=== PATIENT | female | born 1935 | race Caucasian/White ===

== ENCOUNTER → 2017-10-04 17:00 | Outpatient (CLI) | payer MEDICARE, SELFPAY ==
--- NOTE | 2017-10-04 16:57 | HPBI_ITS ---
MAMMOGRAPHY - BILATERAL SCREENING REASON FOR EXAM: Female, 82 years old. Routine annual screening examination. PERTINENT HISTORY: Non-contributory. TECHNIQUE: Digital bilateral breast osvaldo (3D mammographic acquisition) in the CC and MLO projections. 2-D mediolateral oblique (MLO) and craniocaudad (CC) views of both breasts were obtained. CAD: Full Field Digital Mammography with Computer Added Detection was performed. COMPARISON: Comparison is made with prior study dated February 15, 2012. FINDINGS: Breast Composition: There are scattered areas of fibroglandular density. There are no dominant masses or suspicious calcifications. No other significant abnormalities are identified. There has been no significant change since the prior study. HPBI/SCREENING MAMM (CAD), BILAT IMPRESSION: Stable bilateral screening mammogram. Yearly follow-up mammogram recommended. (A) ASSESSMENT CATEGORY: BIRADS Category 1: Negative. A letter regarding these results will be sent to the patient by the facility within 30 days. Approximately 10% of breast cancers are not detected by mammography. A normal mammogram should not delay biopsy of a clinically suspicious abnormality. [id number] Electronically Signed: Ronald Gonzalez MD at 13:55 EST Tel [phone], Service support ,
== END ==
PROVIDERS: Family Provider Family Medicine; PCP Family Medicine; Visit Provider Family Medicine
DX: Z12.31 Encounter for screening mammogram for malignant neoplasm of breast (principal)
CPT/HCPCS: 77063; 77067

== ENCOUNTER → 2021-07-06 15:08 | Outpatient (CLI) | payer MEDICARE, SELFPAY ==
[2021-07-06 17:47] LABS: Absolute Lymphocyte Count 1.89 X10^3/uL (0.83-4.51); Absolute Neutrophil Count 3.6 X10^3/uL (2.0-7.7); Basophil# 0.04 X10^3/uL; Basophil% 0.7 % (0-1); Eosinophil# 0.02 X10^3/uL; Eosinophils% 0.3 % (0-5); Hematocrit 40.6 % (37-47); Hemoglobin 13.1 g/dL (12.0-15.0); Lymphocyte # 1.89 X10^3/ul (0.83-4.51); Lymphocyte % 31.2 % (19-41); Mean Corp Hgb Conc 32.3 g/dL (32-36); Mean Corpuscular Hgb 31.7 pg (27.0-32.0); Mean Corpuscular Volume 98.3 fL (81-99); Mean Platelet Vol. 13.2 fl (6.2-12.0); Monocyte# 0.49 X10^3/uL; Monocyte% 8.1 % (0-10); NRBC Flagged by Analyzer 0 % (0-5); Neutrophil # 3.59 X10^3/uL (2.7-7.7); Neutrophil % 59.4 % (47-70); Platelet Count 241 K/mm3 (150-450); RBC Distribution Width CV 13.7 % (11.6-14.6); RBC Distribution Width SD 49.6 fl (35.1-43.9); Red Blood Count 4.13 M/mm3 (4.2-5.4); White Blood Count 6.1 K/mm3 (4.4-11.0)
[2021-07-06 18:49] LABS: Syphilis Antibodies Non-reactive; Vitamin B12 334 pg/mL (211-911); Vitamin D,25 Hydroxy 20.9 ng/mL
[2021-07-06 19:17] LABS: ALB/GLOB Ratio 0.9 RATIO (0.9-2.4); AST(SGOT) 24 U/L (15-37); Alanine Aminotransfer ALT/SGPT 22 U/L (13-56); Albumin, Serum 3.7 g/dL (3.2-5.0); Alkaline Phosphatase 54 U/L (45-117); Anion Gap 6 (5-15); BUN 19 mg/dL (7-18); BUN/Creat Ratio 36.1 RATIO (10-20); Calcium,Total 9.6 mg/dL (8.5-10.1); Chloride 107 mmol/L (98-107); Creatinine, Serum 0.53 mg/dL (0.55-1.02); EST Glomerular Filtration Rate 117 mL/min (>60); Est Glom Filt Rate - Afr Amer 142 mL/min (>60); Globulin 3.9 g/dL (2.2-4.2); Glucose 85 mg/dL (74-106); Potassium 3.8 mmol/L (3.5-5.1); Protein, Total 7.6 g/dL (6.4-8.2); Sodium Level 142 mmol/L (136-145); Thyroid Stim Hormone (TSH) 1.34 uIU/mL (0.358-3.74)
== END ==
PROVIDERS: PCP Family Medicine Geriatric Medicine; Visit Provider Family Medicine Geriatric Medicine
DX: E55.9 Vitamin D deficiency, unspecified (principal); F06.8 Other specified mental disorders due to known physiological condition; R53.83 Other fatigue; N39.0 Urinary tract infection, site not specified
CPT/HCPCS: 36415; 80053; 82306; 82607; 82746; 84443; 85025; 86780; 87086; 87088

== ENCOUNTER 2021-11-02 14:30 | Emergency (ER) | payer MEDICARE, SELFPAY ==
[2021-11-02 14:31] VITALS: BP 117/54; PULSE 69; RESP 18; TEMP 36.6; O2SAT 96; BMI 22.0
--- NOTE | 2021-11-02 16:05 | EDS_ITS ---
HPI History of Present Illness Chief Complaint: Lower Extremity Injury Informant: patient Onset/Context/Timing Context: - (Awoke overnight last night with pain) Timing: Continuous Quality of Pain: - (pain) Current Severity: Mild Maximum Severity: Severe Worsened by: LLE thigh flexion / lifting leg Relieved by: remaining still Associated Symptoms Associated Symptoms: Negative for Parasthesia and Weakness Narrative Narrative: Patient has unexplained left proximal thigh pain that hurts to lift her left lower extremity to the point where she is almost unable to get into and out of bed on her own. She is elderly and lives with her grandson for the last several years at his home, he and others help to take care of her. 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 However, she denies any claudication. She states when she is up and standing she can walk without any pain or difficulty. However, lifting her leg up to get into bed is terrible and she is basically unable to lift her leg due to the pain. She does not have weakness or numbness. She has no radiation of the pain into her buttock, abd omen, or distally. She has no pain anywhere around the knee. She had a total hip remotely. She denies any fevers or systemic symptoms. She cannot recall any injury or repetitive movements that could be related to this. She denies any falls recently. [facility] Medical History (Updated 11/02/21 @ 17:[address] Darrion Tomas MD) PAD (peripheral artery disease) Home Medications hydrocodone-acetaminophen 1 tab PO Q4H PRN PRN 2 Days #10 tablet 11/02/21 [Rx Last Taken Unknown] Allergy/AdvReac Type Severity Reaction Status Date / Time morphine AdvReac Nausea/Vom/ Verified 11/02/21 14:34 Diarrhea Surgical History Hx of bilateral hip replacements Social History Smoking Status: Never smoker ROS ROS ED Constitutional Constitutional ED: Denies chills or fever(s) Eyes Eyes: Denies change in vision or diplopia ENT ENT ED: Denies rhinorrhea or sore throat Cardiovascular Cardiovascular: Denies chest pain, claudication or palpitations Respiratory/Chest Respiratory/Chest: Denies cough or dyspnea Gastrointestinal Gastrointestinal: Denies abdominal pain, diarrhea, nausea or vomiting Genitourinary Genitourinary ED: Denies dysuria or hematuria Musculoskeletal Musculoskeletal: Reports extremity pain; Denies neck pain Integumentary Denies Abrasions, rash or wounds Neurologic Neurologic: Denies paresthesias or weakness Psychiatric Psychiatric: Denies anxiety or suicidal thoughts EXAM Physical Exam Const Vital Signs: 11/02/21 14:31 Temperature 97.9 F Temperature Source Temporal Pulse Rate 69 Respiratory Rate 18 Blood Pressure 117/54 L Blood Pressure Mean 75 Pulse Ox 96 Oxygen Delivery Method Room Air Positive well nourished and well developed General Appearance ED: well developed and NAD HEENT Reports moist mucous membranes normocephalic and atraumatic Eyes PERRL and EOMs intact bilaterally Neck full ROM and supple Resp normal respiratory effort and clear to auscultation bilaterally Cardio regular rate, regular rhythm and no murmurs GI non-tender and non-distended Auscultation: normoactive bowel sounds Palpation: soft Back/Spine normal ROM and normal to inspection General Back: other FROM Extremity normal to inspection Extremity Narrative: Excellent distal dorsalis pedis pulses symmetric 2+/4 bilaterally. Passive full range of motion of hips, knees, ankles without any difficulty. However actively flexing at the thigh gives her pain limiting her ability to lift her leg although she is able to resist gravity temporarily. She has no reproducible tenderness in the thigh or hip area when leg is at rest with one exception, where she is very tender right at the common origin tendon of the quadriceps muscles. No bony pelvis prominence tenderness. No inguinal lymphadenopathy. No overlying rash. General Extremety ED: Yes tenderness; Negative for edema or pulses abnormal General Extremity: Negative for edema or pulses abnormal Neuro oriented x3, no focal motor deficits and no sensory deficits noted Sensorium / Orientation: alert Motor Exam: strength 5/5 throughout Psych mental status grossly normal and thought process normal Skin no wounds Rashes: no rashes MDM MDM MDM Narrative Medical decision making narrative: Obtain some screening basic labs and hip/pelvis x-ray, 3 view x-ray of the left hip and pelvis are unremarkable on my interpretation, radiology in agreement showing her pre-existing hip replacements. The patient's etiology of her pain appears to be the origin of her hip flexor on the left. It is certainly possible she has iliopsoas bursitis as well which is in the differential. At this time, I reassured her this is not claudication or vascular problem, she has excellent distal pulses and the symptoms are not consistent with claudication, but unfortunately I do not have a quick fix for this and the etiology of it is unclear. Unable to have OT and PT evaluate her in the ER because of the hours of the evening, so I discussed with case management/social work here in the emergency department and they help to arrange for her to have OT and PT evaluations at home, followed by treatment. Flor is comfortable taking her home given the scenario and can help her get around if needed. I gave her half a Vicodin here which helped her pain, so I will prescribe her that to use as needed at home and cautioned them regarding constipation and treatment for that. Discussed with Dr. Tucker her PCP so he is in the loop as well. Lab Data Attestation: I reviewed the patient's lab results. Labs: Laboratory Results - last 24 hr 11/02/21 11/02/21 16:20 16:20 WBC 8.0 RBC 3.73 L Hgb 11.9 L Hct 37.3 MCV 100.0 H MCH 31.9 MCHC 31.9 L RDW Std Deviation 49.7 H RDW Coeff of Marcial 13.4 Plt Count 238 MPV 12.7 H Immature Gran % (Auto) 0.300 Neut % (Auto) 69.5 Lymph % (Auto) 21.6 [place] % (Auto) 7.9 Eos % (Auto) 0.3 Baso % (Auto) 0.4 Absolute Neuts (auto) 5.5 Absolute Lymphs (auto) 1.72 Nucleated RBC % 0 Sodium 140 Potassium 3.9 Chloride 108 H Carbon Dioxide 30.0 Anion Gap 2 L BUN 17 Creatinine 0.57 Estim Creat Clear Calc 29.01 Est GFR (MDRD) Af Amer 129 Est GFR (MDRD) Non-Af 106 BUN/Creatinine Ratio 29.7 H Glucose 124 H Calcium 8.9 Radiography Diagnostic Testing: Clinical Impression(s) from Imaging Studies Hip/Pelvis X-Ray 11/02/21 16:40 IMPRESSION: Bilateral hip replacements without evidence of acute abnormality. Electronically Signed: Mike Doe DO at 17:07 EDT Reading Location ID and State: [facility] / [place] Tel [phone], Service support , Discharge Plan Triage Chief Complaint: Lower Extremity Injury ED Provider: Darrion Tomas Dx/Rx/DC Orders Clinical Impression: Strain of flexor muscle of left hip Instructions: ED Hip Strain Prescriptions: New hydrocodone-acetaminophen [hydrocodone-acetaminophen] 1 TABLET tablet 1 tab PO Q4H PRN PRN (Reason: Pain) 2 Days Qty: 10 RF: 0 Other Ambulatory Orders: Occupational Therapy Eval (Routine) Location: None Selected Ordered By: Dr. Darrion Tomas Physical Therapy Evaluation (Routine) Location: None Selected Ordered By: Dr. Darrion Tomas Primary Care Provider: Ta Tucker Chi Referrals: Ta Tucker Chi, MD [Primary Care Provider] - 1 Week if not improving Disposition Disposition: Home, Self Care
[2021-11-02] MEDS: HYDROcodone Bitartrate/Apap 5/325 Tablet PO (16:15)
[2021-11-02 16:28] LABS: Absolute Lymphocyte Count 1.72 X10^3/uL (0.83-4.51); Absolute Neutrophil Count 5.5 X10^3/uL (2.0-7.7); Basophil# 0.03 X10^3/uL; Basophil% 0.4 % (0-1); Eosinophil# 0.02 X10^3/uL; Eosinophils% 0.3 % (0-5); Hematocrit 37.3 % (37-47); Hemoglobin 11.9 g/dL (12.0-15.0); Lymphocyte # 1.72 X10^3/ul (0.83-4.51); Lymphocyte % 21.6 % (19-41); Mean Corp Hgb Conc 31.9 g/dL (32-36); Mean Corpuscular Hgb 31.9 pg (27.0-32.0); Mean Platelet Vol. 12.7 fl (6.2-12.0); Monocyte# 0.63 X10^3/uL; Monocyte% 7.9 % (0-10); NRBC Flagged by Analyzer 0 % (0-5); Neutrophil # 5.54 X10^3/uL (2.7-7.7); Neutrophil % 69.5 % (47-70); Platelet Count 238 K/mm3 (150-450); RBC Distribution Width CV 13.4 % (11.6-14.6); RBC Distribution Width SD 49.7 fl (35.1-43.9); Red Blood Count 3.73 M/mm3 (4.2-5.4)
[2021-11-02 16:39] LABS: Anion Gap 2 (5-15); BUN 17 mg/dL (7-18); BUN/Creat Ratio 29.7 RATIO (10-20); Calcium,Total 8.9 mg/dL (8.5-10.1); Chloride 108 mmol/L (98-107); Creatinine, Serum 0.57 mg/dL (0.55-1.02); EST Glomerular Filtration Rate 106 mL/min (>60); Est Glom Filt Rate - Afr Amer 129 mL/min (>60); Estimated Creatinine Clearance 29.01 ml/min; Glucose 124 mg/dL (74-106); Potassium 3.9 mmol/L (3.5-5.1); Sodium Level 140 mmol/L (136-145)
--- NOTE | 2021-11-02 16:40 | RAD_ITS ---
STUDY: X-RAY - PELVIS AND LEFT HIP REASON FOR EXAM: Female, 86 years old. Pain. TECHNIQUE: 3 views of the pelvis and hip. COMPARISON: Left hip, 09/17/2013. FINDINGS: There is a non-specific bowel gas pattern. Normal visualized soft tissue structures. There is a irregular calcification in the central pelvis thought to be a uterine fibroid. Normal bilateral iliac wings, sacroiliac joints and visualized sacrum. Normal bilateral superior and inferior pubic rami. Normal pubic symphysis. Normal bilateral ischial tuberosities. There are bilateral total hip arthroplasties. These appear unchanged from prior exam. There is no fracture or loosening from the underlying bone. RAD/HIP, UNI W/ Pelvis 2-3 Views IMPRESSION: Bilateral hip replacements without evidence of acute abnormality. Electronically Signed: Mike Doe DO at 17:07 EDT ,
--- NOTE | 2021-11-02 17:45 | CASEMGMT ---
CLIFF ANTUNEZ note: Consult per Dr. Tomas re: need for HHC for PT/OT eval and treat related to left proximal thigh pain. CLIFF ANTUNEZ to room to speak with patient and patient's grandson Kaleb Rodriguez. RN HARMONY introduced self and role at [facility]. Patient provided list of HHC agencies including quality and resource use data and consistent with the patient's preferred geographic region, medical needs, and insurance network. Patient's first choice is [facility] and second choice is [place]. Patient and grandson made aware referral will be sent today and CLIFF ANTUNEZ will follow-up tomorrow. Demographics verified. Grandson states he is person to contact and patient agreeable. Kaleb Rodriguez [phone]. Patient and grandson deny further questions, needs or concerns. Referral faxed to [facility] HHC Intake [facility]. Call placed and voice message left with Jo to request follow-up tomorrow morning. Dr. Tomas made aware of plan and states will contact PCP Dr. Tucker to update regarding plan for HHC. Patient's primary CLIFF Membreno updated. CLIFF Marshall CM
[2021-11-02 18:07] VITALS: RESP 16
--- NOTE | 2021-11-03 11:11 | CM.ED ---
ER RNCM F/u for HH: 937- S/w Jo at [facility] and states d/t patient PCP Dr Tucker and needing to see patient in office before signing off on HH orders. Sees no problem accepting patient once seen by Dr Tucker and Dr Tucker placed HH referral to them. 940- Called patient leslye Rodriguez and left a to return call to this automobile service writer. 1050- S/w leslye Manuel and informed that patient will have to f/u with Dr Tucker in office and have referral for HH placed by Dr Tucker to [facility] and per Jo at [facility]- sees no reason not accept patient once this is done. Kaleb states understanding and will call to get a f/u appt. scheduled with Dr Tucker and aware to call this automobile service writer if any issues and needing ER RNCM to call office to expedite process. No further questions, issues, or concerns. DANELLE Martin
== END 2021-11-02 18:07 | disposition home or self-care (01) ==
PROVIDERS: Emergency Provider Emergency Medicine; PCP Family Medicine Geriatric Medicine; Visit Provider Emergency Medicine
DX: S76.012A Strain of muscle, fascia and tendon of left hip, initial encounter (principal); Z96.643 Presence of artificial hip joint, bilateral; X58.XXXA Exposure to other specified factors, initial encounter
CPT/HCPCS: 73502; 80048; 85025; 99282

== ENCOUNTER → 2022-01-05 | Outpatient (CLI) | payer MEDICARE, SELFPAY ==
[2022-01-05 17:43] LABS: Absolute Lymphocyte Count 1.37 X10^3/uL (0.83-4.51); Absolute Neutrophil Count 3.9 X10^3/uL (2.0-7.7); Basophil# 0.03 X10^3/uL; Basophil% 0.5 % (0-1); Eosinophil# 0.07 X10^3/uL; Eosinophils% 1.2 % (0-5); Hematocrit 40.5 % (37-47); Hemoglobin 12.8 g/dL (12.0-15.0); Lymphocyte # 1.37 X10^3/ul (0.83-4.51); Mean Corp Hgb Conc 31.6 g/dL (32-36); Mean Corpuscular Hgb 32.2 pg (27.0-32.0); Mean Platelet Vol. 13.6 fl (6.2-12.0); Monocyte# 0.59 X10^3/uL; Monocyte% 9.9 % (0-10); NRBC Flagged by Analyzer 0 % (0-5); Neutrophil # 3.88 X10^3/uL (2.7-7.7); Neutrophil % 65.1 % (47-70); Platelet Count 237 K/mm3 (150-450); RBC Distribution Width CV 14.4 % (11.6-14.6); RBC Distribution Width SD 54.5 fl (35.1-43.9); Red Blood Count 3.97 M/mm3 (4.2-5.4)
[2022-01-05 18:30] LABS: Vitamin D,25 Hydroxy 28.2 ng/mL
[2022-01-05 18:31] LABS: ALB/GLOB Ratio 1.1 RATIO (0.9-2.4); AST(SGOT) 23 U/L (15-37); Alanine Aminotransfer ALT/SGPT 12 U/L (13-56); Albumin, Serum 3.6 g/dL (3.2-5.0); Alkaline Phosphatase 62 U/L (45-117); Anion Gap 5 (5-15); BUN 22 mg/dL (7-18); BUN/Creat Ratio 33.3 RATIO (10-20); Calcium,Total 9.2 mg/dL (8.5-10.1); Chloride 110 mmol/L (98-107); Creatinine, Serum 0.66 mg/dL (0.55-1.02); EST Glomerular Filtration Rate 90 mL/min (>60); Est Glom Filt Rate - Afr Amer 109 mL/min (>60); Globulin 3.2 g/dL (2.2-4.2); Glucose 88 mg/dL (74-106); Potassium 3.8 mmol/L (3.5-5.1); Protein, Total 6.8 g/dL (6.4-8.2); Sodium Level 144 mmol/L (136-145); Thyroid Stim Hormone (TSH) 0.98 uIU/mL (0.358-3.74)
== END | disposition home or self-care (01) ==
LOC: POLAB3 15:03
PROVIDERS: PCP Family Medicine Geriatric Medicine; Visit Provider Family Medicine Geriatric Medicine
DX: E55.9 Vitamin D deficiency, unspecified (principal); R53.83 Other fatigue
CPT/HCPCS: 36415; 80053; 82306; 84443; 85025

== ENCOUNTER 2022-01-15 11:07 | Observation (INO) | payer MEDICARE, SELFPAY ==
[2022-01-15] VITALS (9 sets, daily range): BP systolic 124–174; BP diastolic 53–74; PULSE 49–65; RESP 12–20; TEMP 35.7–36.8; O2SAT 97–100; BMI 21.5
--- NOTE | 2022-01-15 11:43 | CT_ITS ---
STUDY: CT BRAIN WITHOUT CONTRAST REASON FOR EXAM: Female, 86 years old. confusion RADIATION DOSAGE (If Supplied By Facility): CTDIvol = ( 44.99 ) mGy, DLP = ( 745.49 ) mGycm TECHNIQUE: Transaxial CT imaging of the brain was performed without administration of intravenous contrast material. Individualized dose optimization techniques were used for this CT. COMPARISON: No relevant priors. FINDINGS: Normal soft tissue structures. Normal calvarium. There is moderate cerebral atrophy with widening of the extra-axial spaces and ventricular dilatation. There are areas of decreased attenuation within the white matter tracts of the supratentorial brain, consistent with microvascular disease changes. Normal basal ganglia and thalami. Normal brainstem. Normal cerebellum. There is no intracranial hemorrhage. There are no findings of an acute ischemic infarction. Normal visualized paranasal sinuses. CT/Brain/Head without Contrast IMPRESSION: No acute intracranial hemorrhage or mass effect. Electronically Signed: Mehul Alvarado MD ([place]oks) at 12:41 EDT Reading Location ID and State: [address] [place] , Service support ,
--- NOTE | 2022-01-15 11:44 | EKG12_ITS ---
Test Reason : Blood Pressure : / mmHG Vent. Rate : 054 BPM Atrial Rate : 054 BPM P-R Int : 146 ms QRS Dur : 078 ms QT Int : 444 ms P-R-T Axes : 063 052 078 degrees QTc Int : 421 ms Sinus bradycardia Otherwise normal ECG Confirmed by TRAN GARDINER, KARIS ([id number]), editorial specialist ANNE MYERS ([id number]) on 01/19/2022 1:06:28 PM Referred By: ENOCH Confirmed By:KARIS MAYFIELD MD
--- NOTE | 2022-01-15 11:46 | EDS_ITS ---
HPI History of Present Illness Chief Complaint: Confusion Informant: patient and family Onset/Context/Timing Onset: Yesterday Current Severity: Mild Maximum Severity: Moderate Narrative Narrative: Patient present secondary to confusion and dizziness. Patient lives with family member who states yesterday she did not seem to feel well and would lay in bed all day. She did eat a sandwich and soup for dinner last night. She felt better this morning but then after breakfast symptoms seem to recur. Patient describes a lightheaded sensation as if she is going to pass out. She denies chest pain or palpitations. She denies fever or chills. No URI symptoms. She is had nausea but no vomiting. She denies diarrhea. [facility] Medical History PAD (peripheral artery disease) Home Medications hydrocodone-acetaminophen 1 tab PO Q4H PRN PRN 2 Days #10 tablet 11/02/21 [Rx Last Taken Unknown] Allergy/AdvReac Type Severity Reaction Status Date / Time morphine AdvReac Nausea/Vom/ Verified 01/15/22 11:08 Diarrhea Surgical History Hx of bilateral hip replacements Social History Smoking Status: Never smoker ROS ROS ED Constitutional Constitutional ED: Denies chills or fever(s) Eyes Eyes: Denies change in vision ENT ENT ED: Denies sore throat Cardiovascular Cardiovascular: Denies chest pain or palpitations Respiratory/Chest Respiratory/Chest: Denies cough or dyspnea Gastrointestinal Gastrointestinal: Reports nausea; Denies abdominal pain, diarrhea or vomiting Genitourinary Genitourinary ED: Denies dysuria Musculoskeletal Musculoskeletal: Denies back pain or neck pain Integumentary Denies rash Neurologic Neurologic: Reports weakness; Denies headache(s) Psychiatric Psychiatric: Denies anxiety or depression Allergic/Immunologic Allergic/Immunologic ED: Denies urticaria EXAM Physical Exam Const Vital Signs: 01/15/22 11:08 01/15/22 11:46 01/15/22 13:13 Temperature 97.2 F L 98.0 F Temperature Source Temporal Temporal Pulse Rate 65 52 L 61 Respiratory Rate 17 17 15 Blood Pressure 174/69 H 148/74 H 150/71 H Blood Pressure Mean 104 98 97 Pulse Ox 99 100 97 Oxygen Delivery Method Room Air Room Air Room Air Positive well nourished and well developed General Appearance ED: well developed HEENT Reports normocephalic and head/scalp atraumatic Eyes PERRL and EOMs intact bilaterally Neck supple Chest Wall inspection of chest normal and palpation of chest normal Resp normal respiratory effort and clear to auscultation bilaterally Cardio regular rate and regular rhythm GI normal to inspection, nondistended, normoactive bowel sounds and non-tender Palpation: soft Extremity normal to inspection Neuro oriented x3 and no sensory deficits noted Neuro Narrative: No focal neurologic deficits. Sensorium / Orientation: alert Motor Exam: strength 5/5 throughout Psych mental status grossly normal Skin no rashes or lesions noted MDM MDM MDM Narrative Medical decision making narrative: She was placed on tissue technologist. EKG, head CT, lab work, urinalysis obtained. Lab Data Attestation: I reviewed the patient's lab results. Labs: Laboratory Results - last 24 hr 01/15/22 01/15/22 01/15/22 11:50 11:50 13:15 WBC 6.8 RBC 4.04 L Hgb 13.1 Hct 40.3 MCV 99.8 H MCH 32.4 H MCHC 32.5 RDW Std Deviation 52.2 H RDW Coeff of Marcial 14.0 Plt Count 203 MPV 13.4 H Immature Gran % (Auto) 0.300 Neut % (Auto) 74.3 H Lymph % (Auto) 16.3 L [place] % (Auto) 8.1 Eos % (Auto) 0.6 Baso % (Auto) 0.4 Absolute Neuts (auto) 5.1 Absolute Lymphs (auto) 1.11 Nucleated RBC % 0 Sodium 141 Potassium 3.6 Chloride 107 Carbon Dioxide 28.0 Anion Gap 6 BUN 15 Creatinine 0.57 Estim Creat Clear Calc 31.75 Est GFR (MDRD) Af Amer 129 Est GFR (MDRD) Non-Af 107 BUN/Creatinine Ratio 26.3 H Glucose 89 Calcium 9.2 Troponin I High Sens 7 Urine Color Yellow Urine Clarity Clear Urine pH 6.5 Ur Specific [place] 1.015 Urine Protein Negative Urine Glucose (UA) Normal Urine Ketones Negative Urine Occult Blood 10 H Urine Nitrite Negative Urine Bilirubin Negative Urine Urobilinogen Normal Ur Leukocyte Esterase 25 H Urine RBC 0 SEEN Urine WBC 0 SEEN Ur Squamous Epith Cells 0-5 SEEN Urine Bacteria 0 SEEN Urine Mucus 0 SEEN Radiography Diagnostic Testing: Clinical Impression(s) from Imaging Studies Brain CT 01/15/22 11:43 IMPRESSION: No acute intracranial hemorrhage or mass effect. Electronically Signed: Mehul Alvarado MD ([place]) at 12:41 EDT Reading Location ID and State: [address] [place] [address] , Service support , EKG Initial EKG: Attestation: I personally reviewed and interpreted this EKG as follows: Interpretation: Sinus Bradycardia (Sinus bradycardia 54 bpm. No acute ischemia.) Treatment and Re-Evaluation Narrative: While awaiting laboratory evaluation patient's heart rate was noted to drop intermittently into the mid to high 30s. Those rhythm strips were printed out and it does appear to be consistent with sinus bradycardia. When asked patient states that she has had some episodes of dizziness since arriving in the emergency room. Lab work and other test results are unremarkable at this time. I spoke with cardiology and they do recommend observation overnight for cardiac monitoring to ensure she is not going into a heart block. I will speak with hospitalist. Discharge Plan Triage Chief Complaint: Confusion ED Provider: Fidelina Sanon Dx/Rx/DC Orders Clinical Impression: Symptomatic bradycardia Prescriptions: No Action hydrocodone-acetaminophen [hydrocodone-acetaminophen] 1 TABLET tablet 1 tab PO Q4H PRN PRN (Reason: Pain) 2 Days Qty: 10 RF: 0 Primary Care Provider: Ta Tucker Chi Referrals: Ta Tucker Chi, MD [Primary Care Provider] - Disposition Disposition: Acute Care Hospital [facility]
[2022-01-15] MEDS: 0.9% Normal Saline 1,000 ML 150 ML IV ×3 (12:11→23:23)
[2022-01-15 12:28] LABS: Absolute Lymphocyte Count 1.11 X10^3/uL (0.83-4.51); Absolute Neutrophil Count 5.1 X10^3/uL (2.0-7.7); Basophil# 0.03 X10^3/uL; Basophil% 0.4 % (0-1); Eosinophil# 0.04 X10^3/uL; Eosinophils% 0.6 % (0-5); Hematocrit 40.3 % (37-47); Hemoglobin 13.1 g/dL (12.0-15.0); Lymphocyte # 1.11 X10^3/ul (0.83-4.51); Lymphocyte % 16.3 % (19-41); Mean Corp Hgb Conc 32.5 g/dL (32-36); Mean Corpuscular Hgb 32.4 pg (27.0-32.0); Mean Corpuscular Volume 99.8 fL (81-99); Mean Platelet Vol. 13.4 fl (6.2-12.0); Monocyte# 0.55 X10^3/uL; Monocyte% 8.1 % (0-10); NRBC Flagged by Analyzer 0 % (0-5); Neutrophil # 5.07 X10^3/uL (2.7-7.7); Neutrophil % 74.3 % (47-70); Platelet Count 203 K/mm3 (150-450); RBC Distribution Width SD 52.2 fl (35.1-43.9); Red Blood Count 4.04 M/mm3 (4.2-5.4); White Blood Count 6.8 K/mm3 (4.4-11.0)
[2022-01-15 12:30] LABS: Anion Gap 6 (5-15); BUN 15 mg/dL (7-18); BUN/Creat Ratio 26.3 RATIO (10-20); Calcium,Total 9.2 mg/dL (8.5-10.1); Chloride 107 mmol/L (98-107); Creatinine, Serum 0.57 mg/dL (0.55-1.02); EST Glomerular Filtration Rate 107 mL/min (>60); Est Glom Filt Rate - Afr Amer 129 mL/min (>60); Estimated Creatinine Clearance 31.75 ml/min; Glucose 89 mg/dL (74-106); Potassium 3.6 mmol/L (3.5-5.1); Sodium Level 141 mmol/L (136-145); Troponin-I HS 7 pg/mL (3.0-54.0)
--- NOTE | 2022-01-15 12:54 | ED.RN ---
Pt heart rate drops to 38. Dr Sanon aware. Pt states she is having episodes of dizziness
[2022-01-15 13:26] LABS: Bacteria 0 SEEN /hpf (None Seen); Mucous, Urine 0 SEEN /hpf (<or=2+); Red Blood Cells-Urine 0 SEEN /hpf (0-5); White Blood Cells 0 SEEN /hpf (0-5)
[2022-01-15 13:29] LABS: Color, Urine Yellow (Yellow); Glucose, Dipstick Normal (Normal); Ketone-Dipstick Negative (Negative); Leukocyte Esterase-Dipstick 25 /ul (Negative); Nitrite-Dipstick Negative (Negative); Occult Blood-Urine 10 /ul (Negative); Protein-Dipstick Negative (Negative); Specific Gravity, Urine 1.015 (1.002-1.030); Urine Bilirubin Dipstick Negative (Negative); Urine Clarity Clear (Clear); Urine Urobilinogen Normal (Normal); Urine pH 6.5 (5.0 - 8.0)
[2022-01-15 13:35] LABS: Squamous Epithelial Cells - UA 0-5 SEEN /hpf (5-10)
--- NOTE | 2022-01-15 14:35 | HP.PCM.HOS_ITS ---
HPI - General General Date of Admission: 01/15/22 Date of Service: 01/15/22 Chief Complaint: Dizziness HPI Narrative VANITA FOLEY, is a 86 F who presents with dizziness. Symptoms began yesterday, on the ,. Would be worse with changing positions but was not consistent. This morning, patient felt well and then the symptoms began again. Patient's grandson, whom she lives with, was concerned patient was brought into the emergency room. Patient underwent a work-up in the emergency room, including labs, urinalysis and head CT. All those tests were unremarkable. Patient was noted to be bradycardic down to the 30s at one point. They reached out to Dr. Castillo, of cardiology, who recommended patient be observed overnight. Patient had similar episode of dizziness in the past and that was attributed to dehydration. Grandson states the patient is eating and drinking well. [facility] Medical History PAD (peripheral artery disease) no medical history Home Medications hydrocodone-acetaminophen 1 tab PO Q4H PRN PRN 2 Days #10 tablet 11/02/21 [Rx Last Taken Unknown] carbidopa-levodopa 1 tab PO TID 01/15/22 [History Last Taken 01/14/22] donepezil 10 mg PO DAILY 01/15/22 [History Last Taken 01/14/22] memantine 10 mg PO DAILY 01/15/22 [History Last Taken 01/14/22] Allergy/AdvReac Type Severity Reaction Status Date / Time morphine AdvReac Nausea/Vom/ Verified 01/15/22 11:08 Diarrhea Surgical History Hx of bilateral hip replacements Social History (Updated 01/15/22 @ 14:[address] Alexis Donato DO) Smoking Status: Never smoker alcohol intake: never substance use type: does not use ROS ROS Narrative All review of systems were negative except as mentioned above in the history of present illness and the other review of systems. Vital Signs Vital Signs Vital Signs: 01/15/22 11:08 01/15/22 11:46 01/15/22 13:13 Temperature 36.2 C L 36.7 C Temperature Source Temporal Temporal Pulse Rate 65 52 L 61 Respiratory Rate 17 17 15 Blood Pressure 174/69 H 148/74 H 150/71 H Blood Pressure Mean 104 98 97 Pulse Ox 99 100 97 Oxygen Delivery Method Room Air Room Air Room Air Weight Weight: 49.8 kg Body Mass Index (BMI) 20.0 Physical Exam Const alert and no apparent distress General Appearance: cooperative HEENT normocephalic and head/scalp atraumatic Eyes PERRL and EOMs intact bilaterally Eyes Narrative: Did have some slight left-sided nystagmus did fatigue. Neck no lymphadenopathy and no carotid bruits Resp normal respiratory effort, no retractions, no use of accessory muscles and clear to auscultation bilaterally Cardio regular rate, regular rhythm, S1 normal heart sound and S2 normal heart sound GI normal to inspection, nondistended, normoactive bowel sounds, soft to palpation, non-tender and non-distended Extremity normal to inspection Skin no rashes or lesions noted and no wounds Neuro oriented x3, CN's II-XII intact bilaterally, moves all extremities and no focal motor deficits Neuro Narrative: [place] performed and negative bilaterally Sensorium / Orientation: awake and alert Coordination / Balance: [id number] test normal Motor Exam: strength 5/5 throughout Psych affect normal Results Lab / Micro Data Attestation: I reviewed the patient's lab results. Result Diagrams: 01/15/22 11:50 01/15/22 11:50 Labs: Laboratory Results - last 24 hr 01/15/22 11:50: WBC 6.8, RBC 4.04 L, Hgb 13.1, Hct 40.3, MCV 99.8 H, MCH 32.4 H, MCHC 32.5, RDW Std Deviation 52.2 H, RDW Coeff of Marcial 14.0, Plt Count 203, MPV 13.4 H, Immature Gran % (Auto) 0.300, Neut % (Auto) 74.3 H, Lymph % (Auto) 16.3 L, [place] % (Auto) 8.1, Eos % (Auto) 0.6, Baso % (Auto) 0.4, Absolute Neuts (auto) 5.1, Absolute Lymphs (auto) 1.11, Nucleated RBC % 0 01/15/22 11:50: Sodium 141, Potassium 3.6, Chloride 107, Carbon Dioxide 28.0, Anion Gap 6, BUN 15, Creatinine 0.57, Estim Creat Clear Calc 31.75, Est GFR (MDRD) Af Amer 129, Est GFR (MDRD) Non-Af 107, BUN/Creatinine Ratio 26.3 H, Glucose 89, Calcium 9.2, Troponin I High Sens 7 01/15/22 13:15: Urine Color Yellow, Urine Clarity Clear, Urine pH 6.5, Ur Specific [place] 1.015, Urine Protein Negative, Urine Glucose (UA) Normal, Urine Ketones Negative, Urine Occult Blood 10 H, Urine Nitrite Negative, Urine Bilirubin Negative, Urine Urobilinogen Normal, Ur Leukocyte Esterase 25 H, Urine RBC 0 SEEN, Urine WBC 0 SEEN, Ur Squamous Epith Cells 0-5 SEEN, Urine Bacteria 0 SEEN, Urine Mucus 0 SEEN EKG Initial EKG: Attestation: I personally reviewed and interpreted this EKG as follows: Prior EKG tracings: available for review EKG Rhythm Intrepretation: Sinus Rhythm Radiology Impression Brain CT 01/15/22 11:43 IMPRESSION: No acute intracranial hemorrhage or mass effect. Electronically Signed: Mehul Alvarado MD (Brooks) at 12:41 EDT Reading Location ID and State: [address] [place] [address] , Service support , Assessment & Plan Assessment/Plan (1) Bradycardia: (2) Dizziness: PLAN: 1. Transient bradycardia * I would not qualify that as symptomatic at this time is much of her symptoms seem to be attributable to changes in position * Patient on no rate lowering medications that would contribute to this. * Conservative plan at this time: Monitor on telemetry and check a 2D echocardiogram. If patient does have recurrent bradycardia or first sustained, may consider cardiology consultation. 2. Dizziness * Description sounds more like BPPV, however I am not able to consistently reproduce symptoms at this time. * As needed meclizine * PT OT evaluate and treat * Check orthostatic vital signs 3. CODE STATUS: Addressed with the patient. Patient wishes to be DNR Comfort Care arrest 4. COVID-19 vaccination status: Patient has been vaccinated about a year ago. She has not been boosted as of yet. Charges/Coding Visit Charges OBSV E&M: 17266 Initial observation care L2
--- NOTE | 2022-01-15 15:11 | ECHOD_ITS ---
Reason For Study: Bradycardia Procedure This was a 2D Doppler, Color Flow transthoracic echocardiogram. Exam performed portable in patient room. Left Ventricle Normal left ventricle. The estimated ejection fraction is 55-60 %. Right Ventricle Normal right ventricle. Normal systolic function. Atria Normal left atrium. Normal right atrium. Mitral Valve There is mild to moderate mitral annular calcification. Mild (1+) mitral valve insufficiency. Tricuspid Valve Normal tricuspid valve. Mild tricuspid valve insufficiency. Aortic Valve Moderate focal aortic valve calcification. Mild-Moderate (1-2+) aortic valve insufficiency. Pulmonic Valve The pulmonic valve is not well visualized. Great Vessels Normal aortic root. Pericardium/Pleural No pericardial effusion. MMode/2D Measurements & Calculations LVIDd: 4.0 cm IVSd: 1.1 cm Ao root diam: 2.8 cm LVIDs: 2.4 cm LVPWd: 0.97 cm RVDd: 3.1 cm FS: 40.6 % LAV(MOD-bp): 48.7 ml LVAd ap4: 20.1 cm2 SV(MOD-sp4): 30.5 ml LAV(MOD-bp) Indexed: 33.7 ml/m2 LVLd ap4: 7.1 cm LAV(MOD-sp2): 45.1 ml EDV(MOD-sp4): 46.7 ml LAV(MOD-sp4): 42.1 ml EDV(sp4-el): 48.0 ml LVAs ap4: 10.4 cm2 LVLs ap4: 6.0 cm ESV(MOD-sp4): 16.2 ml ESV(sp4-el): 15.5 ml EF(MOD-sp4): 65.4 % EF(sp4-el): 67.7 % SV(sp4-el): 32.5 ml LA A4 area: 15.9 cm2 LA dimension(2D): 3.8 cm RA A4 area: 12.9 cm2 Doppler Measurements & Calculations MV E max leno: 80.3 cm/sec Lat Peak E' Leno: 7.4 cm/sec Med Peak E' Leno: 6.5 cm/sec MV A max leno: 107.3 cm/sec E/E' lat: 10.9 E/E' med: 12.3 MV E/A: 0.75 Ao V2 max: 135.2 cm/sec AI max leno: 369.4 cm/sec LV V1 max: 110.0 cm/sec Ao max P.3 mmHg AI max P.6 mmHg LV V1 max P.8 mmHg Ao V2 mean: 90.0 cm/sec Ao mean P.6 mmHg AI dec slope: 171.6 cm/sec2 Ao V2 VTI: 34.1 cm AI P1/2t: 630.4 msec PA V2 max: 99.2 cm/sec PI end-d leno: 77.0 cm/sec TR max leno: 236.4 cm/sec TR max P.3 mmHg ECHO/Echo Complete Interpretation Summary The estimated ejection fraction is 55-60 %. Normal LV systolic function Grade #1 Diastolic Dysfunction Ordering Physician: Alexis Donato Referring Physician: Ta Tucker Chi Performed By: Crissy Kumar, MIKAYLA, RVT
[2022-01-15] MEDS: 0.9% Saline Lock 10 ML Syringe IV (15:40)
[2022-01-16] VITALS (7 sets, daily range): BP systolic 116–148; BP diastolic 60–77; PULSE 51–66; RESP 18–20; TEMP 36.3–36.8; O2SAT 93–100
[2022-01-16] MEDS: 0.9% Normal Saline 1,000 ML 150 ML IV (05:27)
--- NOTE | 2022-01-16 11:20 | DS.PCM_ITS ---
Providers Date of Admission: 01/15/22 Primary Care Physician: Dr. Ta Tucker MD Reason For Visit: BRADYCARDIA Diagnosis Discharge Diagnosis (1) Bradycardia: Status: Acute Code(s): R00.1 - Bradycardia, unspecified (2) Dizziness: Status: Acute Code(s): R42 - Dizziness and giddiness Medications at Discharge Home Medications hydrocodone-acetaminophen 1 tab PO Q4H PRN PRN 2 Days #10 tablet 11/02/21 carbidopa-levodopa 1 tab PO TID 01/15/22 donepezil 10 mg PO DAILY 01/15/22 memantine 10 mg PO DAILY 01/15/22 Hospital Course Operations None Procedures 2-D Echocardiogram Summary of Care Provided Minutes Spent on Discharge: 45 Hospital Course: Patient is an 86-year-old female with an extensive past medical history as outlined was admitted through the ED on 01/15/2022 with a complaint of dizziness. Symptoms are started on the day before admission. Sometimes worse with changing positions. She denied any headache or blurred vision. Systems otherwise negative. Vitals were significant for bradycardia with heart rate going down to the 30s. CT of the brain was negative for any evidence of any acute intracranial pathology. She was admitted to be managed for dizziness and bradycardia. EKG showed symptomatic bradycardia. 2D echo done showed normal EF with normal left ventricular systolic function. Patient's dizziness resolved and she felt much better and bradycardia actually improved with her heart rate being in the 60s at time I reviewed her. Her heart rate had been in the high 50s overnight. I discussed with cardiology about discharging her home on an event monitor and cardiology (Dr Voung) was agreeable to this. SHe was therefore discharged home with an event monitor on 01/16/2022. She is to follow up with her PCP and was referred to cardiology. Patient was seen and examined prior to discharge. She felt much better and had no complaints. She had an uneventful night and review of systems was otherwise negative. Physical Exam Const alert, oriented x3 and no apparent distress General Appearance: cooperative, comfortable and well kempt Orientation / Consciousness: awake Exam Limitations: no limitations HEENT normocephalic, head/scalp atraumatic, hearing grossly normal bilaterally and moist oral mucous membranes Eyes PERRL, EOMs intact bilaterally and conjunctivae normal Resp normal respiratory effort, no retractions, no use of accessory muscles and clear to auscultation bilaterally Cardio regular rate, regular rhythm, S1 normal heart sound, S2 normal heart sound and no murmurs GI normal to inspection, nondistended, normoactive bowel sounds, soft to palpation, non-tender and non-distended Extremity normal to inspection, full ROM and no clubbing, cyanosis or edema Skin no rashes or lesions noted Neuro oriented x3, CN's II-XII intact bilaterally and moves all extremities Sensorium / Orientation: awake and alert Psych affect normal Weight / BMI Weight Weight: 110 lb 3.698 oz Body Mass Index (BMI) 21.5 ABG / Lab / Microbiology Data Result Diagrams: 01/15/22 11:50 01/15/22 11:50 Laboratory: Laboratory Results - last 24 hr 01/15/22 11:50: WBC 6.8, RBC 4.04 L, Hgb 13.1, Hct 40.3, MCV 99.8 H, MCH 32.4 H, MCHC 32.5, RDW Std Deviation 52.2 H, RDW Coeff of Marcial 14.0, Plt Count 203, MPV 13.4 H, Immature Gran % (Auto) 0.300, Neut % (Auto) 74.3 H, Lymph % (Auto) 16.3 L, [place] % (Auto) 8.1, Eos % (Auto) 0.6, Baso % (Auto) 0.4, Absolute Neuts (auto) 5.1, Absolute Lymphs (auto) 1.11, Nucleated RBC % 0 01/15/22 11:50: Sodium 141, Potassium 3.6, Chloride 107, Carbon Dioxide 28.0, Anion Gap 6, BUN 15, Creatinine 0.57, Estim Creat Clear Calc 31.75, Est GFR (MDRD) Af Amer 129, Est GFR (MDRD) Non-Af 107, BUN/Creatinine Ratio 26.3 H, Glucose 89, Calcium 9.2, Troponin I High Sens 7 01/15/22 13:15: Urine Color Yellow, Urine Clarity Clear, Urine pH 6.5, Ur Specific [place] 1.015, Urine Protein Negative, Urine Glucose (UA) Normal, Urine Ketones Negative, Urine Occult Blood 10 H, Urine Nitrite Negative, Urine B ilirubin Negative, Urine Urobilinogen Normal, Ur Leukocyte Esterase 25 H, Urine RBC 0 SEEN, Urine WBC 0 SEEN, Ur Squamous Epith Cells 0-5 SEEN, Urine Bacteria 0 SEEN, Urine Mucus 0 SEEN Radiography Diagnostic Testing: Radiology Impression Brain CT 01/15/22 11:43 IMPRESSION: No acute intracranial hemorrhage or mass effect. Electronically Signed: Mehul Alvarado MD (Bro[place]) at 12:41 EDT Reading Location ID and State: [address] [place] [address] , Service support , Echocardiogram 01/15/22 15:11 Interpretation Summary The estimated ejection fraction is 55-60 %. Normal LV systolic function Grade #1 Diastolic Dysfunction Ordering Physician: Alexis Donato Referring Physician: Ta Tucker Chi Performed By: Crissy Kumar, MIKAYLA, RVT D/C Instructions Discharge Diet: Low fat / Low cholesterol Discharge Activity: Return to Normal Activity Weight Bearing Status: Weight bearing as tolerated Call your doctor if you observe: Fever of 101 or Higher, Dizziness, Swelling in the ankles, Chest pain and Increased palpitations (irregular heartbeat) Meaningful Use Info Meaningful Use Diagnoses (Choose all that apply): None applicable Discharge Plan Admission Admit Date/Time: 01/15/22 14:30 Primary Reason for Your Visit: dizziness, bradycardia Attending Provider: Shelli Faye Primary Care Provider: Ta Tucker Chi Consulting Providers: Alexis Donato Instructions Patient Instructions: Understanding Bradycardia Discharge Orders/Prescriptions Prescriptions: Continued hydrocodone-acetaminophen 1 TABLET tablet 1 tab PO Q4H PRN PRN (Reason: Pain) 2 Days Qty: 10 RF: 0 donepezil 10 mg tablet 10 mg PO DAILY RF: 0 carbidopa-levodopa 25-100 mg tablet 1 tab PO TID RF: 0 memantine 10 mg tablet 10 mg PO DAILY RF: 0 Referrals / Follow Up: Karl Henderson MD [STAFF PHYSICIAN] - Within 2 Weeks Ta Tucker Chi, MD [Primary Care Provider] - Within 2 Weeks Disposition Disposition (needs filled in before D/C Order can be placed): Home, Self Care Charges/Coding Visit Charges OBSV E&M: 02643 Observation care discharge
== END 2022-01-16 11:37 | disposition home or self-care (01) ==
LOC: ED 14:05 → PCU 14:40
PROVIDERS: Emergency Provider Emergency Medicine; PCP Family Medicine Geriatric Medicine; Visit Provider Student in an Organized Health Care Education/Training Program
DX: R00.1 Bradycardia, unspecified (principal); I73.9 Peripheral vascular disease, unspecified; R42 Dizziness and giddiness; R41.0 Disorientation, unspecified; R11.0 Nausea; I08.3 Combined rheumatic disorders of mitral, aortic and tricuspid valves
CPT/HCPCS: 70450; 80048; 81001; 84484; 85025; 93005; 93225; 93226; 93306; 96360; 96361; 97162; 97166; 99218; 99285; J7030; A4216; G0378

== ENCOUNTER → 2022-01-16 | Outpatient (CLI) | payer MEDICARE, SELFPAY | END | disposition home or self-care (01) | LOC: CVS 12:59 | PROVIDERS: PCP Family Medicine Geriatric Medicine; Visit Provider Student in an Organized Health Care Education/Training Program | DX: R00.1 Bradycardia, unspecified (principal) | CPT/HCPCS: 93225; 93226 ==

== ENCOUNTER 2022-01-24 11:20 | Observation (INO) | payer MEDICARE, MEDICAID, SELFPAY ==
[2022-01-24] VITALS (8 sets, daily range): BP systolic 105–122; BP diastolic 61–72; PULSE 56–103; RESP 14–18; TEMP 36.4–36.6; O2SAT 92–100; BMI 29.2; BMI 22.1
--- NOTE | 2022-01-24 11:39 | RAD_ITS ---
STUDY: X-RAY CHEST REASON FOR EXAM: Female, 86 years old. tia TECHNIQUE: Single AP portable view of the chest. COMPARISON: None. FINDINGS: The lungs are clear and expanded. There is no demonstrated pleural abnormality. Normal size heart. Normal mediastinum and sade. Normal visualized pulmonary arteries. There is atherosclerotic calcification of the aortic arch with tortuosity. There are diffuse degenerative changes of the visualized thoracic spine. Normal visualized ribs, clavicles, and shoulders. There is no demonstrated abnormality of the visualized soft tissue structures of the upper abdomen. RAD/Chest 1 View (Portable) IMPRESSION: No demonstrated acute cardiopulmonary process. Electronically Signed: Barbara Perry MD at 12:37 EDT ,
--- NOTE | 2022-01-24 11:39 | CT_ITS ---
STUDY: CT BRAIN WITHOUT CONTRAST REASON FOR EXAM: Female, 86 years old. tia RADIATION DOSAGE (If Supplied By Facility): CTDIvol = ( 44.99 ) mGy, DLP = ( 745.49 ) mGycm TECHNIQUE: Transaxial CT imaging of the brain was performed without administration of intravenous contrast material. Individualized dose optimization techniques were used for this CT. COMPARISON: 10/03/2022 CT head FINDINGS: Normal soft tissue structures. Normal calvarium. There is moderate cerebral atrophy with widening of the extra-axial spaces and ventricular dilatation. There are areas of decreased attenuation within the white matter tracts of the supratentorial brain, consistent with microvascular disease changes. Normal basal ganglia and thalami. Normal brainstem. There is mild cerebellar atrophy. There is no intracranial hemorrhage. There are no findings of an acute ischemic infarction. Normal visualized paranasal sinuses. CT/Brain/Head without Contrast IMPRESSION: Atrophy. No visualized acute hemorrhage infarct or edema. Electronically Signed: Barbara Perry MD at 12:18 EDT ,
--- NOTE | 2022-01-24 11:40 | EKG12_ITS ---
Test Reason : NEURO SX Blood Pressure : / mmHG Vent. Rate : 058 BPM Atrial Rate : 058 BPM P-R Int : 136 ms QRS Dur : 082 ms QT Int : 422 ms P-R-T Axes : 000 037 103 degrees QTc Int : 414 ms Sinus bradycardia vs Ectopic Atrial Bradycardia Nonspecific T wave abnormality Abnormal ECG Confirmed by MARIYA GARDINER, WILLIAM ([id number]), editorial clerk CHERRY SPEARS ([id number]) on 01/28/2022 9:01:09 AM Referred By: YOU Confirmed By:WILLIAM MERAZ MD
--- NOTE | 2022-01-24 11:42 | EDS_ITS ---
HPI History of Present Illness Chief Complaint: Neuro S/Sx Narrative Narrative: 86-year-old female presenting with concern for TIA. Her family states that she was standing in the kitchen leaning on the counter and started to be minimally responsive for a few minutes. They estimated the max is 10. Patient was drooling as well. Prior to that she had been well. EMS was called and family states her blood sugar was normal. He also states that she had no symptoms on scene. She is back to her baseline. She does have a history of dementia and is on carbidopa levodopa, donepezil, memantine. Patient recently admitted for symptomatic bradycardia and had an echocardiogram done which was pretty normal. She was discharged home where she has been doing well since. [facility] Medical History Dementia PAD (peripheral artery disease) Home Medications carbidopa-levodopa 1 tab PO TID 01/15/22 [History Last Taken 01/14/22] donepezil 10 mg PO DAILY 01/15/22 [History Last Taken 01/14/22] memantine 10 mg PO DAILY 01/15/22 [History Last Taken 01/14/22] Allergy/AdvReac Type Severity Reaction Status Date / Time morphine AdvReac Nausea/Vom/ Verified 01/24/22 11:25 Diarrhea Surgical History Hx of bilateral hip replacements Social History Smoking Status: Never smoker alcohol intake: never substance use type: does not use ROS ROS ED Constitutional Constitutional ED: Denies chills, fever(s) or sweats Eyes Eyes: Denies blurry vision or change in vision ENT ENT ED: Denies ear pain or sore throat Cardiovascular Cardiovascular: Denies chest pain, palpitations or racing heartbeat Respiratory/Chest Respiratory/Chest: Denies cough, dyspnea or sputum Gastrointestinal Gastrointestinal: Denies abdominal pain, constipation, diarrhea, nausea or vomiting Genitourinary Genitourinary ED: Denies dysuria, hematuria or urinary frequency Musculoskeletal Musculoskeletal: Denies arthralgias, myalgias or neck pain Integumentary Denies abscess, Abrasions or rash Neurologic Neurologic: Reports other Details: Right-sided facial droop, drooling. ; Denies headache(s) Psychiatric Psychiatric: Denies anxiety, depression, suicidal ideation or suicidal thoughts Endocrine Endocrinology: Denies polydipsia or polyuria EXAM Physical Exam Const Vital Signs: 01/24/22 11:22 Temperature 97.8 F Temperature Source Oral Pulse Rate 56 L Respiratory Rate 14 Blood Pressure 120/72 Blood Pressure Mean 88 Pulse Ox 100 Oxygen Delivery Method Room Air Positive well nourished General Appearance ED: NAD HEENT Reports moist mucous membranes atraumatic Eyes PERRL and EOMs intact bilaterally Neck no lymphadenopathy and supple Chest Wall inspection of chest normal Resp normal respiratory effort and clear to auscultation bilaterally Cardio Rate: regular rate Rhythm: regular rhythm Extremity normal to inspection General Extremety ED: Negative for deformity or tenderness General Extremity: Negative for deformity Neuro oriented x3, CN's II-XII intact bilaterally and no sensory deficits noted Neuro Narrative: NIH stroke scale score of 0 Sensorium / Orientation: alert Motor Exam: strength 5/5 throughout Psych mental status grossly normal Skin no wounds General Skin Exam: Negative for jaundice Lesions: no lesions Rashes: no rashes STROKE Vital Signs/Narrative: Vital Signs Temp Pulse Resp BP Pulse Ox 01/24/22 11:22 97.8 F 56 L 14 120/72 100 MDM MDM MDM Narrative Medical decision making narrative: Patient family concern for TIA. Patient also recently admitted for symptomatic bradycardia which may be a factor in her symptoms. Patient's NIH stroke score is 0. Family estimates her symptoms lasted about 10 minutes. They feel she is at her baseline. Her family does mention that she has a history of carotid stenosis and they state that this may be as much is 70%. They were told this by Dr. Tucker. They were also told that she is not a surgical candidate for carotid endarterectomy. Blood work is obtained and her CBC and CMP are unremarkable. High-sensitivity troponin is less than 3. EKG interpreted by myself shows a sinus bradycardia with a ventricular rate of [address] wave changes. CT brain interpreted as negative by the radiologist. Chest x-ray interpreted by myself shows no acute cardiopulmonary process. The radiologist agree. Patient's work- up is ultimately normal. I suspect she might have had a TIA, however her family request that she be admitted for placement into senior living is ultimately can care for her at home anymore because they would have to leave her by herself at times. This was discussed with hospitalist. Patient admitted in stable con dition. Impression: 1. TIA 2. History of dementia 3. Bradycardia Lab Data Labs: Laboratory Results - last 24 hr 01/24/22 01/24/22 11:50 11:50 WBC 6.1 RBC 3.94 L Hgb 12.6 Hct 39.9 MCV 101.3 H MCH 32.0 MCHC 31.6 L RDW Std Deviation 52.9 H RDW Coeff of Marcial 14.1 Plt Count 212 MPV 12.8 H Immature Gran % (Auto) 0.300 Neut % (Auto) 73.5 H Lymph % (Auto) 19.0 [place] % (Auto) 5.7 Eos % (Auto) 0.7 Baso % (Auto) 0.8 Absolute Neuts (auto) 4.5 Absolute Lymphs (auto) 1.16 Nucleated RBC % 0 Sodium 142 Potassium 4.0 Chloride 107 Carbon Dioxide 30.0 Anion Gap 5 BUN 16 Creatinine 0.73 Estim Creat Clear Calc 29.01 Est GFR (MDRD) Af Amer 98 Est GFR (MDRD) Non-Af 81 BUN/Creatinine Ratio 22.0 H Glucose 172 H Calcium 9.2 Total Bilirubin 0.40 AST 18 ALT 9 L Alkaline Phosphatase 53 Troponin I High Sens < 3 L Total Protein 6.5 Albumin 3.4 Globulin 3.1 Albumin/Globulin Ratio 1.1 Radiography Diagnostic Testing: Clinical Impression(s) from Imaging Studies Brain CT 01/24/22 11:39 IMPRESSION: Atrophy. No visualized acute hemorrhage infarct or edema. Electronically Signed: Barbara Perry MD at 12:18 EDT , Chest X-Ray 01/24/22 11:39 IMPRESSION: No demonstrated acute cardiopulmonary process. Electronically Signed: Barbara Perry MD at 12:37 EDT , Discharge Plan Triage Chief Complaint: Neuro S/Sx Other Complaint: Weakness ED Provider: Te Villafana Dx/Rx/DC Orders Primary Care Provider: Ta Tucker Chi
[2022-01-24 12:00] LABS: Absolute Lymphocyte Count 1.16 X10^3/uL (0.83-4.51); Absolute Neutrophil Count 4.5 X10^3/uL (2.0-7.7); Basophil# 0.05 X10^3/uL; Basophil% 0.8 % (0-1); Eosinophil# 0.04 X10^3/uL; Eosinophils% 0.7 % (0-5); Hematocrit 39.9 % (37-47); Hemoglobin 12.6 g/dL (12.0-15.0); Lymphocyte # 1.16 X10^3/ul (0.83-4.51); Mean Corp Hgb Conc 31.6 g/dL (32-36); Mean Corpuscular Volume 101.3 fL (81-99); Mean Platelet Vol. 12.8 fl (6.2-12.0); Monocyte# 0.35 X10^3/uL; Monocyte% 5.7 % (0-10); NRBC Flagged by Analyzer 0 % (0-5); Neutrophil # 4.49 X10^3/uL (2.7-7.7); Neutrophil % 73.5 % (47-70); Platelet Count 212 K/mm3 (150-450); RBC Distribution Width CV 14.1 % (11.6-14.6); RBC Distribution Width SD 52.9 fl (35.1-43.9); Red Blood Count 3.94 M/mm3 (4.2-5.4); White Blood Count 6.1 K/mm3 (4.4-11.0)
[2022-01-24 12:17] LABS: ALB/GLOB Ratio 1.1 RATIO (0.9-2.4); AST(SGOT) 18 U/L (15-37); Alanine Aminotransfer ALT/SGPT 9 U/L (13-56); Albumin, Serum 3.4 g/dL (3.2-5.0); Alkaline Phosphatase 53 U/L (45-117); Anion Gap 5 (5-15); BUN 16 mg/dL (7-18); Calcium,Total 9.2 mg/dL (8.5-10.1); Chloride 107 mmol/L (98-107); Creatinine, Serum 0.73 mg/dL (0.55-1.02); EST Glomerular Filtration Rate 81 mL/min (>60); Est Glom Filt Rate - Afr Amer 98 mL/min (>60); Estimated Creatinine Clearance 29.01 ml/min; Globulin 3.1 g/dL (2.2-4.2); Glucose 172 mg/dL (74-106); Protein, Total 6.5 g/dL (6.4-8.2); Sodium Level 142 mmol/L (136-145); Troponin-I HS < 3 pg/mL (3.0-54.0)
--- NOTE | 2022-01-24 12:57 | CT_ITS ---
We are attempting to reach an attending provider to discuss findings. An addendum with communication details will be sent when the communication is complete. STUDY: CTA HEAD AND NECK WITH CONTRAST REASON FOR EXAM: Female, 86 years old. Neuro deficit, acute, stroke suspected RADIATION DOSAGE (If Supplied By Facility): CTDIvol = ( 20.54 ) mGy, DLP = ( 810.95 ) mGycm TECHNIQUE: CT angiography was performed with a multi-detector CT scanner. Data acquisition was obtained from the skull base through the vertex following intravenous administration of IV 75mL Isovue-370. MIP images were reconstructed from the axial data set. Post-processing of the angiographic images was performed, with multiplanar reformation and 3D reconstruction. This study is time stamped 1:18 PM Eastern standard time. This study was presented for interpretation at 1:54 PM Eastern standard time. 13 minutes were given for the read, before tat. Individualized dose optimization techniques were used for this CT. COMPARISON: No relevant priors. FINDINGS: Normal bilateral petrous carotid arteries. There is calcified plaque formation of the right cavernous carotid artery, without a cross-sectional luminal stenosis. There is calcified plaque formation of the left cavernous carotid artery, without a cross-sectional luminal stenosis. Normal right A1 segments of the anterior cerebral artery. Normal left A1 segments of the anterior cerebral artery. Normal intact anterior communicating artery (ACOM). Normal bilateral A2 segments of the anterior cerebral arteries. Normal right M1 and M2 segments of the middle cerebral arteries, with a normal M1 bifurcation. Normal left M1 and M2 segments of the middle cerebral arteries, with a normal M1 bifurcation. There is a persistent origin of the right posterior cerebral artery with absence of the posterior communicating artery (PCOM). Normal left posterior communicating artery (PCOM). Normal bilateral vertebral arteries. Normal basilar artery with a normal basilar bifurcation. The visualized bilateral superior cerebellar (SCA) arteries are normal. Normal bilateral P1, P2 and visualized P3 segments of the posterior cerebral arteries. There is no demonstrated aneurysm of the [place]. There is atrophy without evidence of acute edema. AORTIC ARCH: There is partial calcification of the visualized aortic arch. Normal origins of the brachiocephalic, left common carotid, and left subclavian arteries. RIGHT CAROTID ARTERIES: There is atherosclerotic tortuous elongation of the right common carotid artery. There is mild atherosclerotic plaque formation with minimal narrowing of the right carotid bulb. Normal origin of the right internal carotid (ICA) artery without a hemodynamically significant stenosis. Normal visualized cervical portion of the right internal carotid artery. Normal origin of the right external carotid artery (ECA). LEFT CAROTID ARTERIES: There is atherosclerotic tortuous elongation of the left common carotid artery. There is mild atherosclerotic plaque formation with minimal narrowing of the left carotid bulb. Normal origin of the left internal carotid (ICA) artery without a hemodynamically significant stenosis. There is atherosclerotic tortuous elongation of the cervical portion of the left internal carotid artery. Normal origin of the left external carotid artery (ECA). VERTEBRAL ARTERIES: There is enhancement within the bilateral vertebral arteries with a small right vertebral artery, and a dominant left vertebral artery. There is visualized multilevel degenerative change within the cervical spine. CT/STROKE CTA Head AND Neck W/Con IMPRESSION: No evidence of large cerebral vessel occlusion. Nascet criteria normal to mild diameter stenosis of the bilateral internal carotid arteries. Degenerative change of the cervical spine. Electronically Signed: Barbara Perry MD at 14:02 EDT Reading Location ID and State: [facility] / [place] Tel , Service support ,
--- NOTE | 2022-01-24 12:57 | HP.PCM.HOS_ITS ---
HPI - General General Date of Admission: 01/24/22 Date of Service: 01/24/22 Chief Complaint: Sudden onset of unresponsiveness lasting for 10 to 15 minutes HPI Narrative VANITA FOLEY, is a 86 F with history of dementia was brought in by EMS to ER for sudden episode of unresponsiveness. As per EMS and grandson patient was eating breakfast and then suddenly started staring with no response. Per EMS, noticed arm drift facial droop. The episode of unresponsiveness lasted for about 10 to 15 minutes as per grandson. No prior history of a stroke seizure or intracranial tumor. Patient does not have history of coronary artery disease cardiac stent peripheral arterial disease but has history of asthma. In ED, patient patient was found back to baseline. Patient also drooling but does not seem to be vomiting. Patient was recently admitted in December 2021 for symptomatic bradycardia and echo was reported EF 55 to 60% normal systolic func tion with grade 1 diastolic dysfunction. In ER patient had CT head which did not show acute abnormality. Twelve-lead EKG shows sinus bradycardia at 58 bpm, QTC 440 ms QRS 82 ms. Clinically reviewed no acute cardiopulmonary process. [facility] Medical History Dementia PAD (peripheral artery disease) Home Medications carbidopa-levodopa 1 tab PO TID 01/15/22 [History Last Taken 01/24/22] donepezil 10 mg PO DAILY 01/15/22 [History Last Taken 01/24/22] memantine 10 mg PO DAILY 01/15/22 [History Last Taken 01/24/22] Allergy/AdvReac Type Severity Reaction Status Date / Time morphine AdvReac Nausea/Vom/ Verified 01/24/22 11:25 Diarrhea Surgical History Hx of bilateral hip replacements Social History household members: family Smoking Status: Never smoker alcohol intake: never substance use type: does not use ROS ROS Narrative Constitutional: Reports mild chronic fatigue and weakness. No recent fever in 1 to 2 weeks HEENT: Reports systems reviewed and no addt'l complaints, except as documented Respiratory/Chest: Denies chest pain, shortness of breath at rest or with exertion Gastrointestinal: Denies coffee ground emesis, hematemesis or vomiting Genitourinary: Denies burning urination or new urinary tract symptoms Musculoskeletal: Sometimes joint pain and limited range of motion Neurologic: Denies seizure-like activity. No prior history of epilepsy or stroke skin: No ulcer. No rash Endocrinology: Reports systems reviewed and no addt'l complaints, except as documented Hematologic/Lymphatic: Reports systems reviewed and no addt'l complaints, except as documented Rest 14 ROS are limited as patient does not remember and is history of dementia Vital Signs Vital Signs Vital Signs: 01/24/22 11:22 Temperature 97.8 F Temperature Source Oral Pulse Rate 56 L Respiratory Rate 14 Blood Pressure 120/72 Blood Pressure Mean 88 Pulse Ox 100 Oxygen Delivery Method Room Air Weight Weight: 150 lb Body Mass Index (BMI) 29.2 Physical Exam Narrative Physical exam General: Alert, Oriented x3, Cooperative HEENT: Atraumatic, PERRLA, EOMI, Normocephalic Oral: No Gingival or Mucosal Lesions/ Ulcerations Neck: Supple, No JVD, Negative Carotid Bruits Lungs: Air entry diminished in bilateral lung bases. No crepitation/rhonchi Cardiovascular: Regular rate, Regular Rhythm, Normal S1, Normal S2, No murmurs Abdomen: Bowel Sounds Present, Soft, Non Tender, Non-Distended : No renal angle tenderness. No suprapubic tenderness. Extremities: No edema, Capillary Refill Less than 3 Seconds Skin: No rashes, No breakdown Musculoskeletal: No Tenderness to Palpation of Joints or Extremities Neurological: Cranial nerves II-XII grossly intact, do not appreciate facial droop. No arm drift, leg weakness. Language function intact. No dysarthria or dysphagia. Sensation grossly symmetrical Psych/Mental Status: Dementia Results Lab / Micro Data Result Diagrams: 01/24/22 11:50 01/24/22 11:50 Labs: Laboratory Results - last 24 hr 01/24/22 11:50: WBC 6.1, RBC 3.94 L, Hgb 12.6, Hct 39.9, MCV 101.3 H, MCH 32.0, MCHC 31.6 L, RDW Std Deviation 52.9 H, RDW Coeff of Marcial 14.1, Plt Count 212, MPV 12.8 H, Immature Gran % (Auto) 0.300, Neut % (Auto) 73.5 H, Lymph % (Auto) 19.0, [place] % (Auto) 5.7, Eos % (Auto) 0.7, Baso % (Auto) 0.8, Absolute Neuts (auto) 4.5, Absolute Lymphs (auto) 1.16, Nucleated RBC % 0 01/24/22 11:50: Sodium 142, Potassium 4.0, Chloride 107, Carbon Dioxide 30.0, Anion Gap 5, BUN 16, Creatinine 0.73, Estim Creat Clear Calc 29.01, Est GFR (MDRD) Af Amer 98, Est GFR (MDRD) Non-Af 81, BUN/Creatinine Ratio 22.0 H, Glucose 172 H, Calcium 9.2, Total Bilirubin 0.40, AST 18, ALT 9 L, Alkaline Phosphatase 53, Troponin I High Sens < 3 L, Total Protein 6.5, Albumin 3.4, Globulin 3.1, Albumin/Globulin Ratio 1.[address] 01/24/22 11:39 IMPRESSION: Atrophy. No visualized acute hemorrhage infarct or edema. Electronically Signed: Barbara Perry MD at 12:18 EDT , Chest X-Ray 01/24/22 11:39 IMPRESSION: No demonstrated acute cardiopulmonary process. Electronically Signed: Barbara Perry MD at 12:37 EDT , Assessment & Plan Assessment/Plan (1) Unresponsive: PLAN: 1. Sudden episode of unresponsiveness less likely stroke: Patient is being admitted in PCU. She is back to her baseline. She responded correctly to the orientation question, her age and month. CT head and CTA head and neck does not show acute abnormality. Mild less than 30% bilateral ICA stenosis but no significant LVO, aneurysm or dissection. MRI brain and 2D echo for tomorrow. NIH stroke scale. Formal stroke work-up with PT OT and speech evaluation. Glucose and BP control as per stroke protocol. Fasting profile A1c and TSH tomorrow AM. Started on baby aspirin and high intensity statin 2. Advanced dementia: Patient is on Aricept and memantine. Continued 3. Sometimes involuntary movement: I asked the grandson why she is on carbo levodopa and he said Dr. Tucker started because of involuntary movement she does not have Parkinson disease. Advised follow-up with neurologist as an outpatient. 4. Mild peripheral arterial disease: Not on any medication. VTE prophylaxis: Lovenox 40 subcu daily. Bilateral SCDs Charges/Coding Visit Charges OBSV E&M: 30862 Initial observation care L3
[2022-01-24 13:20] LABS: Magnesium 2.2 mg/dL (1.6-2.6); Phosphorus 3.8 mg/dL (2.5-4.9)
--- NOTE | 2022-01-24 13:33 | MRI_ITS ---
STUDY: MRI BRAIN WITHOUT CONTRAST REASON FOR EXAM: Female, 86 years old. stroke 15 min episode of unresponsiveness,,hx dementia TECHNIQUE: Standardized multiplanar fat and water weighted pulse sequences were obtained. COMPARISON: Head CT dated JANUARY 24, 2022. FINDINGS: There is moderate cerebral atrophy with widening of the extra-axial spaces and ventricular dilatation. There are a limited number of small white matter hyperintensities, distributed throughout the deep white matter tracts of the cerebral hemispheres, consistent with mild chronic white matter ischemic changes. There is no evidence for recent intracranial ischemia or other cause of cytotoxic edema on diffusion weighted imaging (DWI). Normal T2* images of the brain without demonstrated susceptibility artifact. There is no demonstrated hemosiderin stain. Normal bilateral basal ganglia. Normal thalami. There is no extra-axial fluid accumulation. Normal flow voids within the major intracranial circulation suggesting patency by spin echo criteria. Normal sella turcica, pituitary gland, infundibular stalk, optic chiasm and hypothalamus. Normal tectal plate and pineal gland. Normal midbrain, ligia and medulla. Normal cerebellum. Normal basal cisterns. Normal bilateral temporal bones. Normal bilateral internal auditory canals. No demonstrated orbital abnormality, within the constraints of a routine brain study. Normal visualized paranasal sinuses. Normal calvarium and skull base. Normal visualized soft tissue structures. Normal visualized upper cervical spine. MRI/Brain without Contrast IMPRESSION: 1. Involutional changes of the brain, as described above. 2. No acute infarct or intracranial hemorrhage. Electronically Signed: Wilmer Christina MD at 11:13 EDT ,
--- NOTE | 2022-01-24 13:33 | ECHOD_ITS ---
Reason For Study: TIA/CVA Procedure This was a limited 2D transthoracic echocardiogram. Exam performed portable in patient room. Left Ventricle Normal LV size. Left ventricular systolic function is normal. The estimated ejection fraction is 60 %. No regional wall motion abnormalities noted. Right Ventricle Normal RV size. Normal systolic function. Atria Normal left atrium. Normal right atrium. Bubble contrast study negative for right to left interatrial shunt. Mitral Valve There is mild to moderate mitral annular calcification. Tricuspid Valve Normal tricuspid valve. Aortic Valve Trisinus/trileaflet aortic valve. Mild focal aortic valve calcification. Pulmonic Valve Normal pulmonic valve. Great Vessels Normal aortic root. The pulmonary artery is normal size. Normal inferior vena cava. Pericardium/Pleural No pericardial effusion. Medication Performed a rapid injection of agitated mix of 9 cc saline and 1cc air to assess for atrial septal defect. MMode/2D Measurements & Calculations LVIDd: 3.9 cm IVSd: 1.1 cm LVIDs: 2.4 cm LVPWd: 1.0 cm LVAd ap4: 16.8 cm2 FS: 38.3 % LVLd ap4: 6.3 cm EDV(MOD-sp4): 37.6 ml EDV(sp4-el): 38.3 ml LVAs ap4: 8.3 cm2 LVLs ap4: 4.8 cm ESV(MOD-sp4): 12.2 ml ESV(sp4-el): 12.2 ml EF(MOD-sp4): 67.6 % EF(sp4-el): 68.1 % SV(MOD-sp4): 25.4 ml SV(sp4-el): 26.1 ml ECHO/Echo, Limited Study Interpretation Summary Normal LV size. Left ventricular systolic function is normal. The estimated ejection fraction is 60 %. Bubble contrast study negative for right to left interatrial shunt. There is mild to moderate mitral annular calcification. Ordering Physician: Beltran Enamorado Referring Physician: Ta Tucker Chi Performed By: Crissy Kumar RDCS, RVT
[2022-01-24] MEDS: Lactated Ringers 1,000 ML 75 ML IV (14:30)
[2022-01-24 14:44] LABS: Bacteria 0 SEEN /hpf (None Seen); Mucous, Urine 0 SEEN /hpf (<or=2+); Red Blood Cells-Urine 0 SEEN /hpf (0-5); White Blood Cells 0 SEEN /hpf (0-5)
[2022-01-24 14:46] LABS: Color, Urine Yellow (Yellow); Glucose, Dipstick Normal (Normal); Ketone-Dipstick Negative (Negative); Leukocyte Esterase-Dipstick Negative /ul (Negative); Nitrite-Dipstick Negative (Negative); Occult Blood-Urine 10 /ul (Negative); Protein-Dipstick 15 mg/dl (Negative); Specific Gravity, Urine 1.015 (1.002-1.030); Urine Bilirubin Dipstick Negative (Negative); Urine Clarity Clear (Clear); Urine Urobilinogen Normal (Normal)
[2022-01-24] MEDS: Aspirin 81 MG TAB.CHEW PO (14:49)
[2022-01-24 14:53] LABS: Squamous Epithelial Cells - UA 0-5 SEEN /hpf (5-10)
[2022-01-24] MEDS: Carbidopa/Levodopa 25/100 Tablet PO (18:08)
[2022-01-24 18:25] LABS: Bedside Glucose 127 mg/dL (74-106)
[2022-01-24] MEDS: Senna/Docusate Sodium 1 Tablet 2 TABLET PO (23:04)
[2022-01-24] MEDS: Atorvastatin Calcium 80 MG Tablet PO (23:04)
[2022-01-25] VITALS (12 sets, daily range): BP systolic 122–146; BP diastolic 54–90; PULSE 52–69; RESP 16–18; TEMP 36.4–36.9; O2SAT 97–100; BMI 22.1
[2022-01-25 01:16] LABS: Bedside Glucose 108 mg/dL (74-106)
[2022-01-25] MEDS: Enoxaparin 30 MG/0.3 ML Syringe SC (06:40)
[2022-01-25 06:47] LABS: Cholesterol 149 mg/dL (200); High Density Lipoprotein 84 mg/dL; Thyroid Stim Hormone (TSH) 0.84 uIU/mL (0.358-3.74); Triglycerides 56 mg/dL; Very Low Density Lipoprotein 11 mg/dL (5-40)
[2022-01-25 07:20] LABS: Bedside Glucose 83 mg/dL (74-106)
[2022-01-25 07:27] LABS: Hemoglobin A1c 5.4 % (3.8-5.6)
[2022-01-25] MEDS: Carbidopa/Levodopa 25/100 Tablet PO ×3 (07:58→17:45)
[2022-01-25] MEDS: Memantine Hydrochloride 10 MG Tablet PO (07:58)
[2022-01-25] MEDS: Donepezil HCl 10 MG Tablet PO (07:58)
[2022-01-25] MEDS: Senna/Docusate Sodium 1 Tablet 2 TABLET PO ×2 (07:59→22:38)
[2022-01-25] MEDS: Aspirin 81 MG TAB.CHEW PO (07:59)
--- NOTE | 2022-01-25 10:29 | VDLE_ITS ---
Reason For Study: pain RIGHT LEFT GSV is normal. GSV is normal. CFV is compressible, spontaneous, phasic, CFV is compressible, spontaneous, phasic, competent and demonstrates normal competent, and demonstrates normal augmentation. augmentation. FV is compressible, spontaneous, phasic, FV is compressible, spontaneous, phasic, competent and demonstrates normal competent and demonstrates normal augmentation. augmentation. POP V is compressible, spontaneous, phasic, POP V is compressible, spontaneous, phasic, competent and demonstrates normal competent and demonstrates normal augmentation. augmentation. T/P Trunk is compressible. T/P Trunk is compressible. PTV is compressible. PTV is compressible. RT PerV is compressible. LT PerV is compressible. Procedure This is a venous duplex using B-mode, color flow and spectral Doppler. Exam performed portable in patient room. The exam was diagnostic. A preliminary report was called and/or faxed to the pt's RN. VL/Venous Duplex US - [place] Extrem Interpretation Summary No evidence for acute deep venous thrombosis bilateral lower extremities with p atent and compressible bilateral great saphenous veins. Ordering Physician: Amada Douglas Performed By: Isaiah Angeles RVT
--- NOTE | 2022-01-25 11:16 | CASEMGMT ---
SRI was informed patient needs to go to a correction. SRI met with patient's grandson, Kaleb. SW provided a list of SNF providers including quality and resource use data and consistent with the patient?s preferred geographic region, medical needs, and insurance network. SRI explained that he will need to choose at least 3 facilities he would be okay with. He said [facility] is definitely their first choice. He will think about the others. SRI explained insurance will look at her therapy notes and based on how she does will determine whether or not insurance will pay for her time at the correction. SRI asked if patient has the funds to private pay. Kaleb said patient does not. Kaleb's step dad is patient's financial POA so they would have access to her accounts to help apply for Medicaid. SRI explained patient will stay at the hospital until insurance gives us and answer. SRI confirmed Kaleb's phone number and he said it is okay for SW to call him. SRI will work on referral. Yesi BOONE
--- NOTE | 2022-01-25 11:39 | TELEMED_ITS ---
[facility] has confirmed receipt of a request for visit. This document confirms receipt of the order initiating the consult. To find the results of the consultation, please view the patient's reports for the scanned Telemed Consult.
--- NOTE | 2022-01-25 12:00 | CASEMGMT ---
SRI called Wen at [facility] ([facility]) and left her a voice mail regarding referral. SRI will fax referral once therapy notes are in computer. Ysei BOONE
--- NOTE | 2022-01-25 12:08 | PN.HOSP_ITS ---
Documented by User: Amada Douglas REVOLVING FIELD ASSEMBLER, REVOLVING FIELD ASSEMBLER-C 01/25/22 12:23 Subjective Subjective Patient seen and examined. Denies current symptoms or complaints. Slow to respond. Poor historian. No family at bedside. Objective Data Objective Data Vital Signs: Vital Signs Temp Pulse Resp BP Pulse Ox 98.5 F 61 18 146/58 H 98 01/25/22 10:00 01/25/22 10:00 01/25/22 10:00 01/25/22 10:00 01/25/22 10:00 Oxygen Delivery Method Room Air Weight: 108 lb 14.534 oz Body Mass Index (BMI) 22.1 Intake & Output: Intake and Output for Last 24 Hours 01/23/22 01/24/22 01/25/22 23:59 23:59 23:59 Intake Total 360 / 420 1300 / 1300 Balance 360 / 420 1300 / 1300 Lab / Micro Data Result Diagrams: 01/24/22 11:50 01/24/22 11:50 Labs: Laboratory Results - last 24 hr 01/24/22 11:50: Sodium 142, Potassium 4.0, Chloride 107, Carbon Dioxide 30.0, A nion Gap 5, BUN 16, Creatinine 0.73, Estim Creat Clear Calc 29.01, Est GFR (MDRD) Af Amer 98, Est GFR (MDRD) Non-Af 81, BUN/Creatinine Ratio 22.0 H, Glucose 172 H, Calcium 9.2, Total Bilirubin 0.40, AST 18, ALT 9 L, Alkaline Phosphatase 53, Troponin I High Sens < 3 L, Total Protein 6.5, Albumin 3.4, Globulin 3.1, Albumin/Globulin Ratio 1.1 01/24/22 11:50: Phosphorus 3.8, Magnesium 2.2 01/24/22 13:50: Urine Color Yellow, Urine Clarity Clear, Urine pH 6.0, Ur Specific Bristow 1.015, Urine Protein 15 H, Urine Glucose (UA) Normal, Urine Ketones Negative, Urine Occult Blood 10 H, Urine Nitrite Negative, Urine Bili lozada Negative, Urine Urobilinogen Normal, Ur Leukocyte Esterase Negative, Urine RBC 0 SEEN, Urine WBC 0 SEEN, Ur Squamous Epith Cells 0-5 SEEN, Urine Bacteria 0 SEEN, Urine Mucus 0 SEEN 01/24/22 18:10: POC Glucose 127 H 01/25/22 00:23: POC Glucose 108 H 01/25/22 05:38: Triglycerides 56, Cholesterol 149, LDL Cholesterol 54, VLDL Cholesterol 11, HDL Cholesterol 84, TSH 0.84 01/25/22 05:38: Hemoglobin A1c 5.4 01/25/22 06:38: POC Glucose 83 Radiography Diagnostic Testing: Radiology Impression Brain CT 01/24/22 11:39 IMPRESSION: Atrophy. No visualized acute hemorrhage infarct or edema. Electronically Signed: Barbara Perry MD at 12:18 EDT , Chest X-Ray 01/24/22 11:39 IMPRESSION: No demonstrated acute cardiopulmonary process. Electronically Signed: Barbara Perry MD at 12:37 EDT , Head/Neck CTA 01/24/22 12:57 IMPRESSION: No evidence of large cerebral vessel occlusion. Nascet criteria normal to mild diameter stenosis of the bilateral internal carotid arteries. Degenerative change of the cervical spine. Electronically Signed: Barbara Perry MD at 14:02 EDT , ADDENDUM: 01/24/22 1420 IMPRESSION: No evidence of large cerebral vessel occlusion. Nascet criteria normal to mild diameter stenosis of the bilateral internal carotid arteries. Degenerative change of the cervical spine. N.B. : The above Results were Read Back by Barbara Perry MD to Dr. Beltran Enamorado MD, and understanding confirmed on 01/24/2022 14:13:17 (ET). Electronically Signed: Barbara Perry MD at 14:02 EDT , Brain MRI 01/24/22 13:33 IMPRESSION: 1. Involutional changes of the brain, as described above. 2. No acute infarct or intracranial hemorrhage. Electronically Signed: Wilmer Christina MD at 11:13 EDT Reading Location ID and State: [facility] / [place] , Service support , Physical Exam Const alert Orientation / Consciousness: awake and oriented to person Nutritional Appearance: cachectic HEENT normocephalic Mouth: dry mucous membranes Eyes PERRL, EOMs intact bilaterally and conjunctivae normal Neck no lymphadenopathy Resp normal respiratory effort and clear to auscultation bilaterally Cardio regular rate, regular rhythm and no murmurs Peripheral Pulses: pulses 2+ throughout GI normal to inspection, nondistended, normoactive bowel sounds, non-tender and non-distended Extremity normal to inspection Skin no rashes or lesions noted Lesions: no lesions Rashes: no rashes Trauma: no lacerations or abrasions Neuro CN's II-XII intact bilaterally, no focal motor deficits, no sensory deficits noted and deep tendon reflexes 2+ bilaterally Psych mental status grossly normal and affect normal Assessment & Plan Assessment/Plan (1) Unresponsive: PLAN: 1. Transient episode of unresponsiveness, CVA ruled out-head and ne ck CTA without evidence of large vessel occlusion, normal to mild stenosis of the bilateral internal carotid arteries. MRI brain without acute infarct. EEG completed, report pending. Echocardiogram completed and pending as well. PT/OT/ST. Family requesting placement. Social work following. SOC consult. Check orthostatic vitals. 2. Advanced dementia-unclear behavioral disturbance history. On carbidopa- levodopa, donepezil, memantine. Recommend outpatient follow-up with neurology. 3. Mild PAD-not on regimen. 4. Suspected moderate to severe protein calorie malnutrition-as evidenced by advanced dementia with poor oral intake, cachectic appearance with muscle and fat loss. Dietitian consulted. DVT prophylaxis- Lovenox sc This patient was seen by AMANDEEP Damico under the supervision of Dr. Chavez. Documented by User: Dr. Karis Chavez DO 01/25/22 15:12 Subjective Subjective This patient was seen in conjunction with Amada Douglas NP. The following represents my independent history and physical examination. Please see below for addendum the above. Patient is a limited historian and per her grandson, with whom she lives and is at bedside, she is on medications for probable dementia and does have memory issues. She is able to interact and follow commands appropriately however. Her's grandson states they were eating and she had about a 20-minute period of unresponsiveness where she did not interact appropriately and demonstrated some facial droop. He states all the symptoms have since resolved. She had never had this previously. He of her brain does show atrophy. Objective Data Lab / Micro Data Result Diagrams: 01/24/22 11:50 01/24/22 11:50 Physical Exam Const alert, no apparent distress, average body habitus, healthy appearing and well nourished Constitutional Narrative: Elderly white female sitting up in bed, mildly confused however follows all commands, grandson is at bedside, patient is nontoxic and pleasant Exam Limitations: other limitations HEENT head/scalp atraumatic and moist oral mucous membranes Head and Scalp: normocephalic Resp normal respiratory effort, no retractions, no use of accessory muscles and clear to auscultation bilaterally Auscultation: Negative for crackles, rales, rhonchi or wheezes Cardio regular rate, regular rhythm, S1 normal heart sound, S2 normal heart sound, no murmurs, no rub, no gallops, no clicks and no JVD GI normal to inspection, nondistended, normoactive bowel sounds, soft to palpation, non-tender and non-distended Extremity no clubbing, cyanosis or edema Extremity Narrative: Right leg is tender to exam and but no edema is present Peripheral Pulses: Yes pulses 2+ throughout Skin no rashes or lesions noted, no wounds, skin turgor normal, no jaundice, no petechiae and no mottling Neuro CN's II-XII intact bilaterally, moves all extremities, no focal motor deficits and no sensory deficits noted Neuro Narrative: Follows all commands appropriately, generalized weakness with no focal deficit, response times are slowed however speech is intact and intelligible Sensorium / Orientation: awake and alert Speech: speech normal Psych Psych Narrative: Affect is flat Assessment & Plan Assessment/Plan (1) Unresponsive: PLAN: Assessment: Unresponsiveness-transient/resolved Hyperglycemia Advanced dementia PAD Moderate malnutrition Plan: -MRI is negative for stroke -Echocardiogram is unremarkable -Lipid panel shows a total cholesterol 149/LDL 54/HDL 84/triglycerides 56 -Hemoglobin A1c is 5.4 -CTA without any evidence of large vessel occlusions and mild stenosis of bilateral internal carotid arteries -EKG is pending -? Partial complex seizure with Rohit's paralysis given history and cerebral atrophy noted on CT of the head -SOC consultation pending -Orthostatic vitals negative -Lower extremity Dopplers negative -PT/OT following -Family would like placement at discharge--> social work and case management aware Charges/Coding Visit Charges Inpatient E&M: 03665 Subs Hosp L2
--- NOTE | 2022-01-25 13:03 | CM.ED ---
SW Note SW went into the patient's room to complete the Advanced Directives. However, PT/OT was in the room so worker will need to come back later. Yulissa MADSEN
--- NOTE | 2022-01-25 13:05 | CASEMGMT ---
SRI faxed referral to [facility]. SRI also called and left another voice mail for Wen. Plan: SNF Yesi BOONE
--- NOTE | 2022-01-25 13:25 | CASEMGMT ---
SW reviewed therapy's notes and patient walked 200' contact guard. SRI called patient's grandson Kaleb and let him know it is unlikely patient will get approved for snf facility. SRI asked if he will be in tomorrow and he said he will. SRI will fill out a Medicaid application with him and get it sent in to [facility]. Plan: patient needs custodial placement as family cannot care for her at home anymore. SRI has made a referral to [facility], but have not heard back yet. Yesi Noel TRANSPORTATION CONSULTANT MELY
--- NOTE | 2022-01-25 14:18 | CHAPLAIN ---
Type of Pastoral Visit _x__ Initial Visit ___ Follow-up Visit ___ On-call Visit ___ General Patient Visit ___ Spiritual Assessment ___ Family Conference ___ Bereavement ___ Rapid Response ___ Code Blue ___ Other (describe below) Pastoral Care Referral From _x__ Patient ___ Family ___ Nurse ___ Physician ___ Head Start Teacher ___ Activity Specialist ___ Other (describe below) Sacrament/Intervention _x__ Active listening ___ Anointing ___ Church ___ Bereavement ___ Communion ___ Mervat exploration ___ ___ Life review _x__ Prayer ___ Reconciliation ___ Sacrament of Sick ___ Supportive presence ___ Wedding ___ Other (describe below) Pastoral Comments
--- NOTE | 2022-01-25 14:39 | CASEMGMT ---
Social Work Met with pt to complete HCPOA. Pt stated she already has a living will. Pt named grandsonKaleb, as primary. Original and copy provided to pt. Copy placed on chart. TERESA Yang
--- NOTE | 2022-01-25 14:42 | CASEMGMT ---
Addendum entered by Ashlee Ness 01/25/22 15:42: Pt's grandson, Kaleb Rodriguez, called this RN HARMONY back and SORIANO form explained and verbal ok for signature from grandson. Marcos CORONADO CM Original Note: Pt with hx advanced dementia per chart and call to pt's grandson, Kaleb Rodriguez, to complete SORIANO form via phone at this time. Message left for Kaleb to call this RN HARMONY back when able. Marcos CORONADO CM
[2022-01-25] MEDS: Atorvastatin Calcium 80 MG Tablet PO (22:38)
[2022-01-26] VITALS (9 sets, daily range): BP systolic 103–125; BP diastolic 45–69; PULSE 61–83; RESP 16–18; TEMP 36.4–36.9; O2SAT 95–99
[2022-01-26] MEDS: 0.9% Saline Lock 10 ML Syringe IV (06:08)
[2022-01-26] MEDS: Enoxaparin 30 MG/0.3 ML Syringe SC (06:08)
[2022-01-26 06:52] LABS: Absolute Lymphocyte Count 1.73 X10^3/uL (0.83-4.51); Absolute Neutrophil Count 5.1 X10^3/uL (2.0-7.7); Basophil# 0.04 X10^3/uL; Basophil% 0.5 % (0-1); Eosinophil# 0.06 X10^3/uL; Eosinophils% 0.8 % (0-5); Hematocrit 38.9 % (37-47); Hemoglobin 12.4 g/dL (12.0-15.0); Lymphocyte # 1.73 X10^3/ul (0.83-4.51); Lymphocyte % 22.7 % (19-41); Mean Corp Hgb Conc 31.9 g/dL (32-36); Mean Corpuscular Hgb 32.1 pg (27.0-32.0); Mean Corpuscular Volume 100.8 fL (81-99); Mean Platelet Vol. 13.4 fl (6.2-12.0); Monocyte# 0.63 X10^3/uL; Monocyte% 8.3 % (0-10); NRBC Flagged by Analyzer 0 % (0-5); Neutrophil # 5.14 X10^3/uL (2.7-7.7); Neutrophil % 67.3 % (47-70); Platelet Count 187 K/mm3 (150-450); RBC Distribution Width CV 14.3 % (11.6-14.6); RBC Distribution Width SD 53.2 fl (35.1-43.9); Red Blood Count 3.86 M/mm3 (4.2-5.4); White Blood Count 7.6 K/mm3 (4.4-11.0)
[2022-01-26 07:12] LABS: Anion Gap 4 (5-15); BUN 18 mg/dL (7-18); BUN/Creat Ratio 32.5 RATIO (10-20); Calcium,Total 9.1 mg/dL (8.5-10.1); Chloride 108 mmol/L (98-107); Creatinine, Serum 0.55 mg/dL (0.55-1.02); EST Glomerular Filtration Rate 111 mL/min (>60); Est Glom Filt Rate - Afr Amer 134 mL/min (>60); Estimated Creatinine Clearance 29.01 ml/min; Glucose 84 mg/dL (74-106); Potassium 3.9 mmol/L (3.5-5.1); Sodium Level 141 mmol/L (136-145)
[2022-01-26] MEDS: Carbidopa/Levodopa 25/100 Tablet PO ×3 (08:10→17:50)
[2022-01-26] MEDS: Donepezil HCl 10 MG Tablet PO (08:10)
[2022-01-26] MEDS: Memantine Hydrochloride 10 MG Tablet PO (08:10)
[2022-01-26] MEDS: Aspirin 81 MG TAB.CHEW PO (08:10)
[2022-01-26] MEDS: Senna/Docusate Sodium 1 Tablet 2 TABLET PO (08:10)
--- NOTE | 2022-01-26 08:49 | CASEMGMT ---
SRI did not hear back from [facility] yesterday. SRI called again this am and received voice mail. SRI called back again and spoke with Wen. Wen told SW they do not have any female beds (watermaster, short term or AL). SW will talk with grandson when he comes in this am. Yesi Noel MEDICAL OFFICE MANAGER MELY
--- NOTE | 2022-01-26 10:31 | CASEMGMT ---
SW went to see if patient's grandson was at [facility] and he is not. SW will give him a call if he does not show up in a bit as SW needs him to pick other facilities and sign Medicaid application. Yesi BOONE
--- NOTE | 2022-01-26 11:47 | PCM.PN.HOSP ---
Documented by User: Amada Douglas NP, PASSENGER AGENT-C 01/26/22 12:00 Subjective Subjective Patient seen and examined. Denies new symptoms or complaints. Amenable to SNF at discharge. Social work involved. Objective Data Objective Data Vital Signs: Vital Signs Temp Pulse Resp BP Pulse Ox 98.4 F 70 16 107/45 L 96 01/26/22 10:20 01/26/22 10:20 01/26/22 10:20 01/26/22 10:20 01/26/22 10:20 Oxygen Delivery Method Room Air Weight: 108 lb 14.534 oz Body Mass Index (BMI) 22.1 Intake & Output: Intake and Output for Last 24 Hours 01/24/22 01/25/22 01/26/22 23:59 23:59 23:59 Intake Total 360 / 420 1900 / 1900 Balance 360 / 420 1900 / 1900 Lab / Micro Data Result Diagrams: 01/26/22 05:55 01/26/22 05:55 Labs: Laboratory Results - last 24 hr 01/26/22 05:55: WBC 7.6, RBC 3.86 L, Hgb 12.4, Hct 38.9, MCV 100.8 H, MCH 32.1 H, MCHC 31.9 L, RDW Std Deviation 53.2 H, RDW Coeff of Marcial 14.3, Plt Count 187, MPV 13.4 H, Immature Gran % (Auto) 0.400, Neut % (Auto) 67.3, Lymph % (Auto) 22.7, Seminole % (Auto) 8.3, Eos % (Auto) 0.8, Baso % (Auto) 0.5, Absolute Neuts (auto) 5.1, Absolute Lymphs (auto) 1.73, Nucleated RBC % 0 01/26/22 05:55: Sodium 141, Potassium 3.9, Chloride 108 H, Carbon Dioxide 29.0, Anion Gap 4 L, BUN 18, Creatinine 0.55, Estim Creat Clear Calc 29.01, Est GFR (MDRD) Af Amer 134, Est GFR (MDRD) Non-Af 111, BUN/Creatinine Ratio 32.5 H, Glucose 84, Calcium 9.1 Radiography Diagnostic Testing: Radiology Impression Echocardiogram 01/24/22 13:33 Interpretation Summary Normal LV size. Left ventricular systolic function is normal. The estimated ejection fraction is 60 %. Bubble contrast study negative for right to left interatrial shunt. There is mild to moderate mitral annular calcification. Ordering Physician: Beltran Enamorado Referring Physician: Ta Tucker Chi Performed By: Crissy Kumar RDCS, RVT Venous Doppler Study 01/25/22 10:29 Interpretation Summary No evidence for acute deep venous thrombosis bilateral lower extremities with patent and compressible bilateral great saphenous veins. Ordering Physician: Amada Douglas Performed By: Isaiah Angeles, RVT Physical Exam Const alert and oriented x3 Orientation / Consciousness: awake, oriented to person, oriented to place and oriented to time Nutritional Appearance: cachectic HEENT normocephalic and moist oral mucous membranes Eyes PERRL, EOMs intact bilaterally and conjunctivae normal Neck no lymphadenopathy Resp normal respiratory effort and clear to auscultation bilaterally Cardio regular rate, regular rhythm and no murmurs Peripheral Pulses: pulses 2+ throughout GI normal to inspection, nondistended, normoactive bowel sounds, non-tender and non-distended Extremity normal to inspection Skin no rashes or lesions noted Lesions: no lesions Rashes: no rashes Trauma: no lacerations or abrasions Neuro CN's II-XII intact bilaterally, no focal motor deficits, no sensory deficits noted and deep tendon reflexes 2+ bilaterally Psych mental status grossly normal and affect normal Assessment & Plan Assessment/Plan (1) Unresponsive: PLAN: 1. TIA, CVA ruled out-head and neck CTA without evidence of large vessel occlusion, normal to mild stenosis of the bilateral internal carotid arteries. MRI brain without acute infarct. EEG completed, report pending. Echocardiogram demonstrates an EF of 60%. PT/OT/ST. Family requesting placement. Social work following. SOC consulted. Recommends continue baby aspirin. 2. Probable dementia-unclear behavioral disturbance history. On carbidopa-levodopa, donepezil, memantine. Recommend outpatient follow-up with neurology/geriatrics for formal evaluation and management. 3. Mild PAD-not on regimen. 4. Moderate protein calorie malnutrition-as evidenced by advanced dementia with poor oral intake, cachectic appearance with muscle and fat loss. Dietitian consulted. 5. Mild bradycardia-heart rate in the 50s his lowest documented. Baseline appears to be 60-70. Continue to monitor. DVT prophylaxis- Lovenox sc This patient was seen by Amada Douglas NP-C under the supervision of Dr. Chavez. Documented by User: Dr. Karis Chavez DO 01/26/22 15:08 Subjective Subjective This patient was seen in conjunction with Amada Douglas NP. The following represents my independent history and physical examination. Please see below for addendum above. Patient states she is feeling well today. Has no recurrence of any neurological symptoms she had previously. Is excepting to the fact that she needs to go to a facility. Family is no longer able to take care of her at home. She is medically stable for discharge once this can be arranged. Objective Data Lab / Micro Data Result Diagrams: 01/26/22 05:55 01/26/22 05:55 Physical Exam Const alert, oriented x3, average body habitus, healthy appearing and well nourished Constitutional Narrative: Elderly white female sitting up in bed, alert and oriented x3, appears comfortable and nontoxic Orientation / Consciousness: awake, oriented to person, oriented to place and oriented to time Exam Limitations: no limitations Nutritional Appearance: cachectic HEENT normocephalic, head/scalp atraumatic and moist oral mucous membranes Head and Scalp: normocephalic Resp normal respiratory effort, no retractions, no use of accessory muscles and clear to auscultation bilaterally Auscultation: Negative for crackles, rales, rhonchi or wheezes Cardio regular rate, regular rhythm, S1 normal heart sound, S2 normal heart sound, no murmurs, no rub, no gallops, no clicks and no JVD Peripheral Pulses: pulses 2+ throughout GI normal to inspection, nondistended, normoactive bowel sounds, soft to palpation, non-tender and non-distended Extremity no clubbing, cyanosis or edema Peripheral Pulses: Yes pulses 2+ throughout Skin Lesions: no lesions Rashes: no rashes Trauma: no lacerations or abrasions Neuro oriented x3, CN's II-XII intact bilaterally, moves all extremities, no focal motor deficits and deep tendon reflexes 2+ bilaterally Neuro Narrative: Response time was much improved today Sensorium / Orientation: awake and alert Speech: speech normal Psych mental status grossly normal and affect normal Assessment & Plan Assessment/Plan (1) Unresponsive: PLAN: Assessment: Unresponsiveness-transient/resolved Hyperglycemia Bradycardia Advanced dementia PAD Moderate malnutrition Plan: -MRI is negative for stroke -Echocardiogram is unremarkable -Lipid panel shows a total cholesterol 149/LDL 54/HDL 84/triglycerides 56 -Hemoglobin A1c is 5.4 -CTA without any evidence of large vessel occlusions and mild stenosis of bilateral internal carotid arteries -EEG formed but the reports have not been placed in our documentation and nursing is currently trying to sort through this so we can review the the EEG -SOC has seen the patient -Orthostatic vitals negative -Intermittent bradycardia which appears to be baseline--> lowest documented is in the mid 50s -Lower extremity Dopplers negative -PT/OT following -Case management and elementary school social worker currently trying to get the patient placed and get Medicaid documentation signed. Charges/Coding Visit Charges Inpatient E&M: 63296 Subs Hosp L2
--- NOTE | 2022-01-26 16:34 | CASEMGMT ---
Patient's grandson Kaleb came to [facility]. He assisted SW with completing Medicaid application. SRI also had patient sign the authorized outside medical sales representative form for [employer] so Kaleb can assist with patient getting Medicaid. SRI faxed Medicaid application and authorized outside medical sales representative form to [employer]. SRI told Kaleb that [facility] does not have any beds available. SRI gave him a new list as the other one was in his car. Their next 2 choices would be [facility] and [facility]. SRI let them know SRI will work on referrals. SRI faxed referrals to [facility] and [facility]. SRI also called both places regarding referral. However Kathy at [facility] was already gone for the day. Yesi Noel MSW MELY
[2022-01-27] VITALS (8 sets, daily range): BP systolic 103–118; BP diastolic 62–72; PULSE 66–80; RESP 16–18; TEMP 36.6–37.4; O2SAT 95–98
[2022-01-27] MEDS: Enoxaparin 30 MG/0.3 ML Syringe SC (05:29)
[2022-01-27 06:04] LABS: Absolute Lymphocyte Count 1.84 X10^3/uL (0.83-4.51); Absolute Neutrophil Count 3.8 X10^3/uL (2.0-7.7); Basophil# 0.04 X10^3/uL; Basophil% 0.6 % (0-1); Eosinophil# 0.07 X10^3/uL; Eosinophils% 1.1 % (0-5); Hematocrit 38.3 % (37-47); Hemoglobin 12.4 g/dL (12.0-15.0); Lymphocyte # 1.84 X10^3/ul (0.83-4.51); Lymphocyte % 29.5 % (19-41); Mean Corp Hgb Conc 32.4 g/dL (32-36); Mean Corpuscular Hgb 32.3 pg (27.0-32.0); Mean Corpuscular Volume 99.7 fL (81-99); Mean Platelet Vol. 13.2 fl (6.2-12.0); Monocyte# 0.49 X10^3/uL; Monocyte% 7.9 % (0-10); NRBC Flagged by Analyzer 0 % (0-5); Neutrophil # 3.77 X10^3/uL (2.7-7.7); Neutrophil % 60.4 % (47-70); Platelet Count 192 K/mm3 (150-450); RBC Distribution Width CV 14.3 % (11.6-14.6); Red Blood Count 3.84 M/mm3 (4.2-5.4); White Blood Count 6.2 K/mm3 (4.4-11.0)
[2022-01-27 06:44] LABS: Anion Gap 5 (5-15); BUN 23 mg/dL (7-18); BUN/Creat Ratio 40.4 RATIO (10-20); Calcium,Total 8.9 mg/dL (8.5-10.1); Chloride 108 mmol/L (98-107); Creatinine, Serum 0.57 mg/dL (0.55-1.02); EST Glomerular Filtration Rate 107 mL/min (>60); Est Glom Filt Rate - Afr Amer 129 mL/min (>60); Estimated Creatinine Clearance 29.01 ml/min; Glucose 92 mg/dL (74-106); Potassium 3.8 mmol/L (3.5-5.1); Sodium Level 141 mmol/L (136-145)
[2022-01-27] MEDS: Memantine Hydrochloride 10 MG Tablet PO (09:43)
[2022-01-27] MEDS: Aspirin 81 MG TAB.CHEW PO (09:43)
[2022-01-27] MEDS: Carbidopa/Levodopa 25/100 Tablet PO ×3 (09:43→18:07)
[2022-01-27] MEDS: Donepezil HCl 10 MG Tablet PO (09:43)
[2022-01-27] MEDS: Senna/Docusate Sodium 1 Tablet 2 TABLET PO ×2 (09:43→21:09)
--- NOTE | 2022-01-27 13:04 | PCM.PN.HOSP ---
Documented by User: Amada Douglas NP, WAGON WINDER-C 01/27/22 13:08 Subjective Subjective Patient seen and examined. Denies symptoms or complaints. Denies further dizziness. No acute events overnight. Awaiting pending Medicaid number and accepting facility. Objective Data Objective Data Vital Signs: Vital Signs Temp Pulse Resp BP Pulse Ox 98.1 F 79 16 103/64 96 01/27/22 09:00 01/27/22 11:12 01/27/22 09:00 01/27/22 09:00 01/27/22 09:00 Oxygen Delivery Method Room Air Weight: 105 lb 13.15 oz Body Mass Index (BMI) 22.1 Intake & Output: Intake and Output for Last 24 Hours 01/25/22 01/26/22 01/27/22 23:59 23:59 23:59 Intake Total 1900 / 1900 1420 / 1420 Balance 1900 / 1900 1420 / 1420 Lab / Micro Data Result Diagrams: 01/27/22 05:41 01/27/22 05:41 Labs: Laboratory Results - last 24 hr 01/27/22 05:41: WBC 6.2, RBC 3.84 L, Hgb 12.4, Hct 38.3, MCV 99.7 H, MCH 32.3 H, MCHC 32.4, RDW Std Deviation 52.0 H, RDW Coeff of Marcial 14.3, Plt Count 192, MPV 13.2 H, Immature Gran % (Auto) 0.500, Neut % (Auto) 60.4, Lymph % (Auto) 29.5, [place] % (Auto) 7.9, Eos % (Auto) 1.1, Baso % (Auto) 0.6, Absolute Neuts (auto) 3.8, Absolute Lymphs (auto) 1.84, Nucleated RBC % 0 01/27/22 05:41: Sodium 141, Potassium 3.8, Chloride 108 H, Carbon Dioxide 28.0, Anion Gap 5, BUN 23 H, Creatinine 0.57, Estim Creat Clear Calc 29.01, Est GFR (MDRD) Af Amer 129, Est GFR (MDRD) Non-Af 107, BUN/Creatinine Ratio 40.4 H, Glucose 92, Calcium 8.9 Physical Exam Const alert and oriented x3 Orientation / Consciousness: awake, oriented to person, oriented to place and oriented to time Nutritional Appearance: cachectic HEENT normocephalic and moist oral mucous membranes Eyes PERRL, EOMs intact bilaterally and conjunctivae normal Neck no lymphadenopathy Resp normal respiratory effort and clear to auscultation bilaterally Cardio regular rate, regular rhythm and no murmurs Peripheral Pulses: pulses 2+ throughout GI normal to inspection, nondistended, normoactive bowel sounds, non-tender and non-distended Extremity normal to inspection Skin no rashes or lesions noted Lesions: no lesions Rashes: no rashes Trauma: no lacerations or abrasions Neuro CN's II-XII intact bilaterally, no focal motor deficits, no sensory deficits noted and deep tendon reflexes 2+ bilaterally Psych mental status grossly normal and affect normal Assessment & Plan Assessment/Plan (1) Unresponsive: PLAN: 1. TIA, CVA ruled out-head and neck CTA without evidence of large vessel occlusion, normal to mild stenosis of the bilateral internal carotid arteries. MRI brain without acute infarct. EEG normal. Echocardiogram demonstrates an EF of 60%. PT/OT/ST. Family requesting placement. Social work following. SOC consulted. Continue baby aspirin. 2. Probable dementia-unclear behavioral disturbance history. On carbidopa-levodopa, donepezil, memantine. Recommend outpatient follow-up with neurology/geriatrics for formal evaluation and management. 3. Mild PAD-not on regimen. 4. Moderate protein calorie malnutrition-as evidenced by advanced dementia with poor oral intake, cachectic appearance with muscle and fat loss. Dietitian consulted. 5. Mild bradycardia-heart rate in the 50s his lowest documented. Baseline appears to be 60-70. Continue to monitor. Appears stable. DVT prophylaxis- Lovenox sc Discharge planning: awaiting pending medicaid number and facility acceptance. This patient was seen by Amada Douglas NP-C under the supervision of Dr. Chavez. Documented by User: Dr. Karis Chavez DO 01/27/22 14:18 Subjective Subjective Seen in conjunction with Amada Douglas NP. The following represents my independent history and physical examination. Please see below for the than the above. No issues overnight. The patient states she slept well and is feeling well today. We are still waiting on an accepting facility and a pending Medicaid number for discharge. Objective Data Lab / Micro Data Result Diagrams: 01/27/22 05:41 01/27/22 05:41 Physical Exam Const alert, oriented x3, average body habitus, healthy appearing and well nourished Constitutional Narrative: Elderly white female sitting up in a chair at the bedside, appears comfortable nontoxic, extremely pleasant Orientation / Consciousness: awake, oriented to person, oriented to place and oriented to time Exam Limitations: no limitations Nutritional Appearance: cachectic HEENT normocephalic, head/scalp atraumatic and moist oral mucous membranes Head and Scalp: normocephalic Resp normal respiratory effort, no retractions, no use of accessory muscles and clear to auscultation bilaterally Auscultation: Negative for crackles, rales, rhonchi or wheezes Cardio regular rate, regular rhythm, S1 normal heart sound, S2 normal heart sound, no murmurs, no rub, no gallops, no clicks and no JVD Peripheral Pulses: pulses 2+ throughout GI normal to inspection, nondistended, normoactive bowel sounds, soft to palpation, non-tender and non-distended Extremity normal to inspection and no clubbing, cyanosis or edema Extremity Narrative: Right leg is tender to exam and but no edema is present Peripheral Pulses: Yes pulses 2+ throughout Skin no rashes or lesions noted, no wounds, skin turgor normal, no jaundice, no petechiae and no mottling Lesions: no lesions Rashes: no rashes Trauma: no lacerations or abrasions Neuro oriented x3, moves all extremities, no focal motor deficits and deep tendon reflexes 2+ bilaterally Neuro Narrative: Response time was much improved today Sensorium / Orientation: awake and alert Speech: speech normal Psych mental status grossly normal and affect normal Assessment & Plan Assessment/Plan (1) Unresponsive: PLAN: Assessment: Unresponsiveness-transient/resolved Hyperglycemia Bradycardia Advanced dementia PAD Moderate malnutrition Plan: -MRI is negative for stroke -Echocardiogram is unremarkable -Lipid panel shows a total cholesterol 149/LDL 54/HDL 84/triglycerides 56 -Hemoglobin A1c is 5.4 -CTA without any evidence of large vessel occlusions and mild stenosis of bilateral internal carotid arteries -EEG was negative -SOC has seen the patient -Orthostatic vitals negative -Intermittent bradycardia which appears to be baseline--> lowest documented is in the mid 50s -Lower extremity Dopplers negative -PT/OT following -Patient has now been accepted at [facility] and Medicaid number is pending -Patient will be discharged to [facility] once we receive her pending Medicaid number Charges/Coding Visit Charges Inpatient E&M: 60030 Subs Hosp L2
--- NOTE | 2022-01-27 13:48 | CASEMGMT ---
SRI spoke with Kathy at [facility] and they are able to accept patient. Kathy already spoke with patient's grandson. SRI is still waiting on the pending Medicaid number. SRI called [facility] and they declined patient. SRI called patient's grandson, Kaleb and updated him. He was in agreement with [facility]. SRI let Kaleb know that SW does not have a pending number yet so patient will stay in the hospital until then. SRI will check in with [facility] regarding pending number. Plan[facility] once SRI is able to get the pending Medicaid number and then level of care. Yesi Noel CLINICAL AUDIOLOGIST MELY
--- NOTE | 2022-01-27 15:16 | CASEMGMT ---
SRI sent an e-mail to [facility] inquiring if there is a pending number yet and letting them know patient will be going to [facility]. Yesi Noel DISTRICT MANAGER POSTAL SERVICE MELY
[2022-01-28] VITALS (10 sets, daily range): BP systolic 104–125; BP diastolic 55–73; PULSE 66–83; RESP 12–18; TEMP 35.9–36.9; O2SAT 97–100
[2022-01-28] MEDS: Enoxaparin 30 MG/0.3 ML Syringe SC (05:21)
[2022-01-28] MEDS: Donepezil HCl 10 MG Tablet PO (08:25)
[2022-01-28] MEDS: Carbidopa/Levodopa 25/100 Tablet PO ×3 (08:25→17:02)
[2022-01-28] MEDS: Memantine Hydrochloride 10 MG Tablet PO (08:25)
[2022-01-28] MEDS: Aspirin 81 MG TAB.CHEW PO (08:25)
[2022-01-28] MEDS: Senna/Docusate Sodium 1 Tablet 2 TABLET PO ×2 (08:25→21:19)
--- NOTE | 2022-01-28 14:19 | CASEMGMT ---
SW received an e-mail from [employer] and patient's pending Medicaid case number is: [id number]. SW asked physician to complete Transfer to Extended Care and med list so SW can obtain level of care from [facility]. Yesi BOONE
--- NOTE | 2022-01-28 14:26 | PCM.TXEXTCAR ---
Diet 01/25/22 14:34 Diet: Regular - General Food consistency:: Regular Liquid Consistency:: Regular/Thin Is pt able to select menu?: Yes Routine Orders/Code Status O2 Frequency: PRN Keep PO Greater than or Equal to (%): 92 Code Status: Full Code Problem/Diagnosis (1) Unresponsive: Status: Acute Allergies/Procedures Done in Hospital Allergies morphine Adverse Reaction (Verified 01/24/22 11:25) Nausea/Vom/Diarrhea Procedures: 2-D Echocardiogram and - (MRI/LE dopplers) Type of Care/Length of Stay Estimated LOS: More Than 30 Days Type of Care Needed: Intermediate Rehab Potential: Good Prognosis: Good Additional Orders/Day of Discharge Day of Discharge: 01/28/22 Dietary and Speech Recommendations Dietitian Recommendations/Changes: RD will liberalize diet to Regular. Discharge Plan Admission Admit Date/Time: 01/24/22 12:45 Attending Provider: Karis Chavez Primary Care Provider: Ta Tucker Chi Consulting Providers: Beltran Enamorado Discharge Orders/Prescriptions Prescriptions: No Action donepezil 10 mg tablet 10 mg PO DAILY RF: 0 carbidopa-levodopa 25-100 mg tablet 1 tab PO TID RF: 0 memantine 10 mg tablet 10 mg PO DAILY RF: 0
--- NOTE | 2022-01-28 15:07 | CASEMGMT ---
SRI e-mailed all necessary information to [facility] to obtain a level of care. Yesi Noel RESIDENTIAL CONSTRUCTION INSTRUCTORJorge BOONE
--- NOTE | 2022-01-28 15:22 | PCM.PN.HOSP ---
Subjective Subjective No issues overnight. Patient continues to feel well and states she had a good night sleep. Has been accepted at [facility] and now awaiting Medicaid number which is currently pending. Objective Data Objective Data Vital Signs: Vital Signs Temp Pulse Resp BP Pulse Ox 98.2 F 83 12 122/73 H 98 01/28/22 13:12 01/28/22 13:12 01/28/22 13:12 01/28/22 13:12 01/28/22 13:12 Oxygen Delivery Method Room Air Weight: 47.4 kg Body Mass Index (BMI) 22.1 Intake & Output: Intake and Output for Last 24 Hours 01/26/22 01/27/22 01/28/22 23:59 23:59 23:59 Intake Total 1420 / 1420 360 / 360 480 / 480 Balance 1420 / 1420 360 / 360 480 / 480 Lab / Micro Data Result Diagrams: 01/27/22 05:41 01/27/22 05:41 Physical Exam Const alert, oriented x3, average body habitus, healthy appearing and well nourished Constitutional Narrative: Elderly white female sitting up in bed, appears comfortable nontoxic, extremely pleasant Orientation / Consciousness: awake, oriented to person, oriented to place and oriented to time Exam Limitations: no limitations Nutritional Appearance: thin HEENT normocephalic, head/scalp atraumatic and moist oral mucous membranes Head and Scalp: normocephalic Resp normal respiratory effort, no retractions, no use of accessory muscles and clear to auscultation bilaterally Auscultation: Negative for crackles, rales, rhonchi or wheezes Cardio regular rate, regular rhythm, S1 normal heart sound, S2 normal heart sound, no murmurs, no rub, no gallops, no clicks and no JVD Peripheral Pulses: pulses 2+ throughout GI normal to inspection, nondistended, normoactive bowel sounds, soft to palpation, non-tender and non-distended Extremity no clubbing, cyanosis or edema Peripheral Pulses: Yes pulses 2+ throughout Skin Lesions: no lesions Rashes: no rashes Trauma: no lacerations or abrasions Neuro oriented x3, moves all extremities, no focal motor deficits and deep tendon reflexes 2+ bilaterally Neuro Narrative: Response time was much improved today Sensorium / Orientation: awake and alert Speech: speech normal Psych mental status grossly normal Assessment & Plan Assessment/Plan (1) Unresponsive: PLAN: Assessment: Unresponsiveness-transient/resolved Hyperglycemia-resolved Bradycardia-resolved Mild cognitive impairment PAD Moderate malnutrition Plan: -MRI is negative for stroke -Echocardiogram is unremarkable -Lipid panel shows a total cholesterol 149/LDL 54/HDL 84/triglycerides 56 -Hemoglobin A1c is 5.4 -CTA without any evidence of large vessel occlusions and mild stenosis of bilateral internal carotid arteries -EEG was negative -SOC has seen the patient -Orthostatic vitals negative -Lower extremity Dopplers negative -PT/OT following -Patient has now been accepted at [facility] and Medicaid number is pending -Patient will be discharged to [facility] once we receive her pending Medicaid number Charges/Coding Visit Charges Inpatient E&M: 65921 Subs Hosp L2
[2022-01-29 03:00] VITALS: PULSE 66
[2022-01-29 03:10] VITALS: BP 114/55; PULSE 73; RESP 16; TEMP 36.8; O2SAT 94
[2022-01-29] MEDS: Enoxaparin 30 MG/0.3 ML Syringe SC (05:13)
[2022-01-29 07:10] VITALS: PULSE 64
--- NOTE | 2022-01-29 08:19 | PCM.PN.HOSP ---
Objective Data Objective Data Vital Signs: Vital Signs Temp Pulse Resp BP Pulse Ox 98.3 F 64 16 114/55 L 94 01/29/22 03:10 01/29/22 07:10 01/29/22 03:10 01/29/22 03:10 01/29/22 03:10 Oxygen Delivery Method Room Air Weight: 104 lb 7.986 oz Body Mass Index (BMI) 22.1 Intake & Output: Intake and Output for Last 24 Hours 01/27/22 01/28/22 01/29/22 23:59 23:59 23:59 Intake Total 360 / 360 960 / 1020 60 / 60 Balance 360 / 360 960 / 1020 60 / 60 Lab / Micro Data Result Diagrams: 01/27/22 05:41 01/27/22 05:41 Physical Exam Narrative Physical exam Assessment & Plan Assessment/Plan (1) Unresponsive: PLAN: Assessment: Unresponsiveness-transient/resolved Hyperglycemia-resolved Bradycardia-resolved Mild cognitive impairment PAD Moderate malnutrition Plan: -MRI is negative for stroke -Echocardiogram is unremarkable -Lipid panel shows a total cholesterol 149/LDL 54/HDL 84/triglycerides 56 -Hemoglobin A1c is 5.4 -CTA without any evidence of large vessel occlusions and mild stenosis of bilateral internal carotid arteries -EEG was negative -SOC has seen the patient -Orthostatic vitals negative -Lower extremity Dopplers negative -PT/OT following -Patient has now been accepted at [facility] and Medicaid number is pending -Patient will be discharged to [facility] once we receive her pending Medicaid number
[2022-01-29 08:26] VITALS: BP 115/67; PULSE 74; RESP 12; TEMP 36.6; O2SAT 100
[2022-01-29] MEDS: Memantine Hydrochloride 10 MG Tablet PO (08:35)
[2022-01-29] MEDS: Aspirin 81 MG TAB.CHEW PO (08:35)
[2022-01-29] MEDS: Senna/Docusate Sodium 1 Tablet 2 TABLET PO (08:35)
[2022-01-29] MEDS: Donepezil HCl 10 MG Tablet PO (08:35)
[2022-01-29] MEDS: Carbidopa/Levodopa 25/100 Tablet PO ×2 (08:35→12:28)
--- NOTE | 2022-01-29 08:59 | CASEMGMT ---
SW received a level of care from [facility]. SRI will notify physician and patient's grandson that patient will be going today. SRI did talk with Kathy at [facility] and she is aware patient will come today. Yesi BOONE
--- NOTE | 2022-01-29 09:34 | CASEMGMT ---
SRI spoke with patient's grandson, Kaleb. SRI let him know patient will go to [facility] today. He has to work today at so SRI will need to set up transport. As long as patient's Medicaid is approved van transport should be covered. He thanked SRI for the assistance. SW will let him know when transport is set up. Plan: d/c to [facility] under intermediate level of care on a PASRR as patient was observation status in the hospital. [facility] will transport patient. Yesi BOONE
--- NOTE | 2022-01-29 09:53 | PCM.DC.SUM ---
Providers Date of Admission: 01/24/22 Date of Discharge: 01/29/22 Primary Care Physician: Dr. Ta Tucker MD Reason For Visit: TIA? Diagnosis Discharge Diagnosis (1) Unresponsive: Status: Acute Code(s): R41.89 - Other symptoms and signs involving cognitive functions and awareness Medications at Discharge Home Medications carbidopa-levodopa 1 tab PO TID 01/15/22 donepezil 10 mg PO DAILY 01/15/22 memantine 10 mg PO DAILY 01/15/22 aspirin 81 mg PO BREAKFAST #30 tab 01/28/22 Hospital Course Summary of Care Provided Hospital Course: Is a 86-year-old female with history of dementia was admitted for sudden episode of unresponsiveness [facility] did not show acute abnormality. Twelve-lead EKG shows sinus bradycardia at 58 bpm. QTc 440 ms. Please see H&P for details. Her further hospital course as follows 1. Sudden episode of unresponsiveness exact etiology unclear: MRI is negative for stroke. Echocardiogram is unremarkable -Lipid panel shows a total cholesterol 149/LDL 54/HDL 84/triglycerides 56 -Hemoglobin A1c is 5.4 -CTA without any evidence of large vessel occlusions and mild stenosis of bilateral internal carotid arteries -EEG was negative -SOC has seen the patient -Orthostatic vitals negative -Lower extremity Dopplers negative -PT/OT following 2. Patient has worsening dementia. On Aricept and memantine 3. Sometimes involuntary movement: Dr. Tucker started because of involuntary movement she does not have Parkinson disease. Advised follow-up with neurologist as an outpatient. 4. Mild peripheral arterial disease: Not on any medication. VTE prophylaxis: Lovenox 40 subcu daily. Bilateral SCDs Physical Exam Narrative Seen and examined on the day of discharge. Patient is feeling anxious and restless, could not explain exactly. She does not have chest pain or shortness of breath. General: Alert, Oriented x3, Cooperative HEENT: Atraumatic, PERRLA, EOMI, Normocephalic Oral: No Gingival or Mucosal Lesions/ Ulcerations Neck: Supple, No JVD, Negative Carotid Bruits Lungs: Air entry diminished in bilateral lung bases. No crepitation/rhonchi Cardiovascular: Regular rate, Regular Rhythm, Normal S1, Normal S2, No murmurs Abdomen: Bowel Sounds Present, Soft, Non Tender, Non-Distended : No renal angle tenderness. No suprapubic tenderness. Extremities: No edema, Capillary Refill Less than 3 Seconds Skin: No rashes, No breakdown Musculoskeletal: No Tenderness to Palpation of Joints or Extremities Neurological: Cranial nerves II-XII grossly intact, do not appreciate facial droop. No arm drift, leg weakness. Language function intact. No dysarthria or dysphagia. Sensation grossly symmetrical Psych/Mental Status: Dementia Weight / BMI Weight Weight: 104 lb 7.986 oz Body Mass Index (BMI) 22.1 ABG / Lab / Microbiology Data Result Diagrams: 01/27/22 05:41 01/27/22 05:41 Microbiology: Microbiology 01/29/22 09:10 Nasal Secretion SARS-CoV-2 Antigen (Rapid) - Final Meaningful Use Info Meaningful Use Diagnoses (Choose all that apply): None applicable Discharge Plan Admission Admit Date/Time: 01/24/22 12:45 Attending Provider: Beltran Enamorado Primary Care Provider: Ta Tucker Chi Consulting Providers: Beltran Enamorado ; Karis Chavez Discharge Orders/Prescriptions Prescriptions: New aspirin 81 mg Tablet,Chewable 81 mg PO BREAKFAST Qty: 30 RF: 0 Continued donepezil 10 mg tablet 10 mg PO DAILY RF: 0 carbidopa-levodopa 25-100 mg tablet 1 tab PO TID RF: 0 memantine 10 mg tablet 10 mg PO DAILY RF: 0 Referrals / Follow Up: Ardian Eddy MD [STAFF PHYSICIAN] - Within 1 Month (FOR Dementia and occasional involuntary movement) Ta Tucker Chi, MD [Primary Care Provider] - Disposition Discharge Orders: Discharge Patient (Routine); Ordered 01/29/22 Ordered By: Dr. Beltran Enamorado Charges/Coding Visit Charges Inpatient E&M: 60851 Disch Hosp
--- NOTE | 2022-01-29 10:06 | CASEMGMT ---
SRI received orders. SRI arranged for patient to get picked up at 1p via [facility] van. Patient's grandson has to work at 1 so he will be able to come in and see her before she leaves. SRI faxed orders, COVID test, level of care, PASRR, and vegetable picker time to [facility]. SRI notified RN and junior legal secretary of vegetable picker time. Plan: d/c to [facility] under intermediate level of care on a PASRR as patient was observation status in the hospital. [facility] transported via wheelchair van. Yesi Noel TELESALES ADVISOR MELY
--- NOTE | 2022-01-29 10:58 | NURSING ---
Report called to FELICITAS Duenas at [address] [facility].
[2022-01-29 12:26] VITALS: BP 112/64; PULSE 69; RESP 16; TEMP 36.6; O2SAT 98
== END 2022-01-29 12:10 | disposition intermediate care facility (04) ==
LOC: ED 12:54 → PCU 13:06
PROVIDERS: Internal Medicine; Nurse Practitioner Family; Admitting Provider Internal Medicine; Emergency Provider Student in an Organized Health Care Education/Training Program; PCP Family Medicine Geriatric Medicine; Visit Provider Internal Medicine
DX: R41.89 Other symptoms and signs involving cognitive functions and awareness (principal); E44.0 Moderate protein-calorie malnutrition; F02.80 Dementia in other diseases classified elsewhere, unspecified severity, without behavioral disturbance, psychotic disturbance, mood disturbance, and anxiety; I73.9 Peripheral vascular disease, unspecified; I70.0 Atherosclerosis of aorta; R00.1 Bradycardia, unspecified; M47.812 Spondylosis without myelopathy or radiculopathy, cervical region; R73.9 Hyperglycemia, unspecified; Z79.899 Other long term (current) drug therapy; Z79.82 Long term (current) use of aspirin; Z68.20 Body mass index [BMI] 20.0-20.9, adult; R29.810 Facial weakness; R94.31 Abnormal electrocardiogram [ECG] [EKG]; M79.604 Pain in right leg
CPT/HCPCS: 36415; 70450; 70496; 70498; 70551; 71045; 80048; 80053; 80061; 81001; 82962; 83036; 83735; 84100; 84443; 84484; 85025; 87426; 92610; 93005; 93306; 93308; 93970; 94762; 95819; 96360; 96361; 96372; 97110; 97162; 97166; 97530; 97535; 97802; 99218; 99284; J7120; Q9967; A4216; G0378

== ENCOUNTER 2022-07-05 08:47 | Emergency (ER) | payer MEDICARE, MEDICAID, SELFPAY ==
[2022-07-05 08:48] VITALS: BP 125/74; PULSE 63; RESP 18; TEMP 35.7; O2SAT 100; BMI 19.4
--- NOTE | 2022-07-05 08:56 | CT_ITS ---
STUDY: CT BRAIN WITHOUT CONTRAST REASON FOR EXAM: Female, 87 years old. Altered LOC RADIATION DOSAGE (If Supplied By Facility): CTDIvol = ( 44.99 ) mGy, DLP = ( 812.98 ) mGycm TECHNIQUE: Transaxial CT imaging of the brain was performed without administration of intravenous contrast material. Individualized dose optimization techniques were used for this CT. COMPARISON: Comparison is made with prior study dated 01/24/2022. FINDINGS: Normal soft tissue structures. Normal calvarium. There is moderate cerebral atrophy with widening of the extra-axial spaces and ventricular dilatation. There are areas of decreased attenuation within the white matter tracts of the supratentorial brain, consistent with microvascular disease changes. Normal basal ganglia and thalami. Normal brainstem. There is mild cerebellar atrophy. There is no intracranial hemorrhage. There are no findings of an acute ischemic infarction. Atherosclerotic plaque formation of the cavernous portions of the internal carotid arteries bilaterally. Normal visualized paranasal sinuses. CT/Brain/Head without Contrast IMPRESSION: Chronic involutional changes of the brain. Electronically Signed: Ronald [facility] MD at 9:58 EST ,
--- NOTE | 2022-07-05 08:58 | ED.RN ---
pt laying with eyes closed. not responding to verbal stimuli. sternal rub pt squints eyes slightly more closed. pt resisting against staff sitting her up slightly. nhan arms initally stiff aftr sitting her up and laying back again arms moved more freely. dr gant placed arms in the air and pt has held them there for more than 5 minutes. no othe response to painful stimuli or voice.
--- NOTE | 2022-07-05 09:00 | EDS_ITS ---
HPI History of Present Illness Chief Complaint: Alt LOC Informant: patient, EMS and SNF Onset/Context/Timing Onset: Today Narrative Narrative: Patient is a [facility] resident DNR comfort care only with a history of dementia. She was seen this morning at her baseline of alert and oriented to person only, and according to [facility] and EMS 45 minutes later, she was unresponsive but breathing. senior care staff noticed a skipped beat on her heartbeat but no other helpful information. History is extremely limited since the patient is not responding, and EMS did not know her baseline. PFSH PFS Medical History Anxiety Aphasia Dementia History of stroke History of TIAs Macrocytosis PAD (peripheral artery disease) Home Medications carbidopa 25 mg-levodopa 100 mg tablet 1 tab PO TID parkinsons 01/15/22 [History Last Taken 01/24/22] donepezil 10 mg tablet 10 mg PO DAILY memory 01/15/22 [History Last Taken 01/24/22] memantine 10 mg tablet 10 mg PO DAILY memory 01/15/22 [History Last Taken 01/24/22] aspirin 81 mg chewable tablet 81 mg PO BREAKFAST #30 tabs 01/28/22 [Rx Last Taken Unknown] Allergy/AdvReac Type Severity Reaction Status Date / Time morphine AdvReac Nausea/Vom/ Verified 01/24/22 11:25 Diarrhea Surgical History Hx of bilateral hip replacements Social History household members: family Smoking Status: Never smoker alcohol intake: never substance use type: does not use ROS ROS ED Review of Systems ROS Unobtainable: due to mental status EXAM Physical Exam Const Vital Signs: 07/05/22 08:48 07/05/22 08:54 07/05/22 09:55 Temperature 96.2 F L Temperature Source Temporal Pulse Rate 63 61 Respiratory Rate 18 14 Respiratory Pattern Normal Blood Pressure 125/74 H 102/72 Blood Pressure Mean 91 82 Pulse Ox 100 100 Oxygen Delivery Method Room Air Room Air 07/05/22 10:08 Temperature Temperature Source Pulse Rate 104 H Respiratory Rate 20 H Respiratory Pattern Blood Pressure 119/65 Blood Pressure Mean 83 Pulse Ox 99 Oxygen Delivery Method Positive well nourished and well developed General Appearance ED: well developed and NAD HEENT Reports moist mucous membranes normocephalic and atraumatic Eyes PERRL and EOMs intact bilaterally Eyes Narrative: 3mm bilat Neck full ROM and supple Neck Narrative: No meningismus Chest Wall inspection of chest normal and palpation of chest normal Resp normal respiratory effort and clear to auscultation bilaterally Resp Narrative: Breathing easily and normally with a respiratory rate of 18 Cardio regular rate, regular rhythm and no murmurs Rate: Negative for bradycardia or tachycardic GI non-tender and non-distended Auscultation: normoactive bowel sounds Palpation: soft Back/Spine no CVA tenderness Back/Spine Narrative: Passively staff sits her up, with no changes in her level of consciousness or apparent discomfort/pain. Extremity normal to inspection General Extremety ED: Yes edema; Negative for pulses abnormal or tenderness General Extremity: edema bilateral lower extremity Details: moderate (With Nish wraps wrapped around, no wounds beneath); Negative for pulses abnormal Neuro Neuro Narrative: Patient is unresponsive. She withdraws to pain in some areas, on her legs she localizes to pain but does not open her eyes or speak any sounds, nor moaning. Deena Coma Scale: document GCS findings None Localizes to Pain None 7 Skin no rashes or lesions noted and no wounds MDM MDM MDM Narrative Medical decision making narrative: While obtaining work-up, patient was placed on some gentle IV fluids, and on reevaluation she alerts to voice, is able to respond and respond to questions by speaking what sounds fluent, and states that she feels okay right now. She is moving all 4 extremities neurologically intact peripherally. Her vital signs are normal. Her work-up is consistent with mild dehydration and hypokalemia. We addressed both of these, and given that she has no signs of any infection, her urine is unremarkable, chest x-ray 1 view on my interpretation normal radiology in agreement, and her CT of the head is negative, in combination with her being in a [facility] DNR comfort care, I feel after the fluids and potassium she can be discharged back. Lab Data Attestation: I reviewed the patient's lab results. Labs: Laboratory Results - last 24 hr 07/05/22 07/05/22 07/05/22 09:10 09:10 09:10 WBC 6.3 RBC 3.92 L Hgb 12.4 Hct 38.3 MCV 97.7 MCH 31.6 MCHC 32.4 RDW Std Deviation 47.1 H RDW Coeff of Marcial 13.2 Plt Count 270 MPV 12.7 H Immature Gran % (Auto) 0.300 Neut % (Auto) 62.9 Lymph % (Auto) 28.2 [place] % (Auto) 7.3 Eos % (Auto) 0.8 Baso % (Auto) 0.5 Absolute Neuts (auto) 4.0 Absolute Lymphs (auto) 1.77 Nucleated RBC % 0 Sodium 141 Potassium 3.3 L Chloride 103 Carbon Dioxide 31.0 Anion Gap 7 BUN 27 H Creatinine 0.73 Estim Creat Clear Calc 28.22 Est GFR (MDRD) Af Amer 96 Est GFR (MDRD) Non-Af 80 BUN/Creatinine Ratio 36.8 H Glucose 93 Lactic Acid 0.7 Calcium 9.7 Total Bilirubin 0.50 AST 27 ALT 8 L Alkaline Phosphatase 103 Troponin I High Sens 10 Total Protein 7.4 Albumin 3.8 Globulin 3.6 Albumin/Globulin Ratio 1.1 Urine Color Urine Clarity Urine pH Ur Specific [place] Urine Protein Urine Glucose (UA) Urine Ketones Urine Occult Blood Urine Nitrite Urine Bilirubin Urine Urobilinogen Ur Leukocyte Esterase Urine RBC Urine WBC Ur Squamous Epith Cells Urine Bacteria Urine Mucus 07/05/22 09:50 WBC RBC Hgb Hct MCV MCH MCHC RDW Std Deviation RDW Coeff of Marcial Plt Count MPV Immature Gran % (Auto) Neut % (Auto) Lymph % (Auto) [place] % (Auto) Eos % (Auto) Baso % (Auto) Absolute Neuts (auto) Absolute Lymphs (auto) Nucleated RBC % Sodium Potassium Chloride Carbon Dioxide Anion Gap BUN Creatinine Estim Creat Clear Calc Est GFR (MDRD) Af Amer Est GFR (MDRD) Non-Af BUN/Creatinine Ratio Glucose Lactic Acid Calcium Total Bilirubin AST ALT Alkaline Phosphatase Troponin I High Sens Total Protein Albumin Globulin Albumin/Globulin Ratio Urine Color Straw Urine Clarity Clear Urine pH 7.0 Ur Specific [place] 1.010 Urine Protein Negative Urine Glucose (UA) Normal Urine Ketones Negative Urine Occult Blood Negative Urine Nitrite Negative Urine Bilirubin Negative Urine Urobilinogen Normal Ur Leukocyte Esterase Negative Urine RBC 0 SEEN Urine WBC 0 SEEN Ur Squamous Epith Cells 0 SEEN Urine Bacteria 0 SEEN Urine Mucus 0 SEEN Radiography Diagnostic Testing: Clinical Impression(s) from Imaging Studies Brain CT 07/05/22 08:56 IMPRESSION: Chronic involutional changes of the brain. Electronically Signed: Ronald Gonzalez MD at 9:58 EST , Chest X-Ray 07/05/22 09:30 IMPRESSION: Hyperinflation. The lungs are clear. Electronically Signed: Ronald Gonzalez MD at 9:58 EST , Rhythm Strip Rhythm Strip: Sinus Rhythm Rate: 65 Ectopy: None EKG Initial EKG: Attestation: I personally reviewed and interpreted this EKG as follows: Interpretation: Sinus Rhythm and No Acute Injury Pattern Prior EKG tracings: available for review Discharge Plan Triage Chief Complaint: Alt LOC ED Provider: Darrion Tomas Dx/Rx/DC Orders Clinical Impression: Altered awareness, transient, Mild dehydration, Hypokalemia Instructions: ED Dehydration (Adult), ED Hypokalemia Prescriptions: No Action donepezil 10 mg tablet 10 mg PO DAILY Label Comments: TAKE 1 TABLET ORALLY ONCE PER DAY FOR 30 DAYS TAKE WITH SUPPER. carbidopa-levodopa 25-100 mg tablet 1 tab PO TID Label Comments: TAKE 1 TABLET ORALLY 3 TIMES PER DAY FOR 30 DAYS memantine 10 mg tablet 10 mg PO DAILY Label Comments: PLEASE SEE ATTACHED FOR DETAILED DIRECTIONS aspirin 81 mg Tablet,Chewable 81 mg PO BREAKFAST Qty: 30 0RF Primary Care Provider: Ta Tucker Chi Referrals: Ta Tucker Chi, MD [Primary Care Provider] - 3-5 Days Disposition Disposition: Home, Self Care
[2022-07-05 09:22] LABS: Absolute Lymphocyte Count 1.77 X10^3/uL (0.83-4.51); Basophil# 0.03 X10^3/uL; Basophil% 0.5 % (0-1); Eosinophil# 0.05 X10^3/uL; Eosinophils% 0.8 % (0-5); Hematocrit 38.3 % (37-47); Hemoglobin 12.4 g/dL (12.0-15.0); Lymphocyte # 1.77 X10^3/ul (0.83-4.51); Lymphocyte % 28.2 % (19-41); Mean Corp Hgb Conc 32.4 g/dL (32-36); Mean Corpuscular Hgb 31.6 pg (27.0-32.0); Mean Corpuscular Volume 97.7 fL (81-99); Mean Platelet Vol. 12.7 fl (6.2-12.0); Monocyte# 0.46 X10^3/uL; Monocyte% 7.3 % (0-10); NRBC Flagged by Analyzer 0 % (0-5); Neutrophil # 3.95 X10^3/uL (2.7-7.7); Neutrophil % 62.9 % (47-70); Platelet Count 270 K/mm3 (150-450); RBC Distribution Width CV 13.2 % (11.6-14.6); RBC Distribution Width SD 47.1 fl (35.1-43.9); Red Blood Count 3.92 M/mm3 (4.2-5.4); White Blood Count 6.3 K/mm3 (4.4-11.0)
--- NOTE | 2022-07-05 09:30 | RAD_ITS ---
STUDY: X-RAY CHEST REASON FOR EXAM: Female, 87 years old. Altered LOC TECHNIQUE: Single AP portable view of the chest. COMPARISON: Comparison is made with prior study dated 01/24/2022. FINDINGS: EKG electrodes are seen. Hyperinflation. The lungs are clear. There is no demonstrated pleural abnormality. Normal size heart. Normal mediastinum and sade. Normal visualized pulmonary arteries. Normal visualized aortic arch and descending thoracic aorta. There are diffuse degenerative changes of the visualized thoracic spine. Normal visualized ribs, clavicles, and shoulders. There is no demonstrated abnormality of the visualized soft tissue structures of the upper abdomen. RAD/Chest 1 View (Portable) IMPRESSION: Hyperinflation. The lungs are clear. Electronically Signed: Ronald Gonzalez MD at 9:58 EST ,
[2022-07-05 09:36] LABS: ALB/GLOB Ratio 1.1 RATIO (0.9-2.4); AST(SGOT) 27 U/L (15-37); Alanine Aminotransfer ALT/SGPT 8 U/L (13-56); Albumin, Serum 3.8 g/dL (3.2-5.0); Alkaline Phosphatase 103 U/L (45-117); Anion Gap 7 (5-15); BUN 27 mg/dL (7-18); BUN/Creat Ratio 36.8 RATIO (10-20); Calcium,Total 9.7 mg/dL (8.5-10.1); Chloride 103 mmol/L (98-107); Creatinine, Serum 0.73 mg/dL (0.55-1.02); EST Glomerular Filtration Rate 80 mL/min (>60); Est Glom Filt Rate - Afr Amer 96 mL/min (>60); Estimated Creatinine Clearance 28.22 ml/min; Globulin 3.6 g/dL (2.2-4.2); Glucose 93 mg/dL (74-106); Potassium 3.3 mmol/L (3.5-5.1); Protein, Total 7.4 g/dL (6.4-8.2); Sodium Level 141 mmol/L (136-145); Troponin-I HS 10 pg/mL (3.0-54.0)
[2022-07-05 09:51] LABS: Lactic Acid 0.7 mmol/L (0.4-1.9)
[2022-07-05 09:52] LABS: Bacteria 0 SEEN /hpf (None Seen); Mucous, Urine 0 SEEN /hpf (<or=2+); Red Blood Cells-Urine 0 SEEN /hpf (0-5); Squamous Epithelial Cells - UA 0 SEEN /hpf (5-10); White Blood Cells 0 SEEN /hpf (0-5)
[2022-07-05 09:55] VITALS: BP 102/72; PULSE 61; RESP 14; O2SAT 100
[2022-07-05 09:55] LABS: Color, Urine Straw (Yellow); Glucose, Dipstick Normal (Normal); Ketone-Dipstick Negative (Negative); Leukocyte Esterase-Dipstick Negative /ul (Negative); Nitrite-Dipstick Negative (Negative); Occult Blood-Urine Negative /ul (Negative); Protein-Dipstick Negative (Negative); Urine Bilirubin Dipstick Negative (Negative); Urine Clarity Clear (Clear); Urine Urobilinogen Normal (Normal)
[2022-07-05] MEDS: 0.9% Normal Saline 1,000 ML 100 ML IV (10:01)
--- NOTE | 2022-07-05 10:06 | EKG12_ITS ---
Test Reason : Blood Pressure : / mmHG Vent. Rate : 067 BPM Atrial Rate : 067 BPM P-R Int : 164 ms QRS Dur : 086 ms QT Int : 468 ms P-R-T Axes : 071 032 162 degrees QTc Int : 494 ms Normal sinus rhythm Nonspecific ST and T wave abnormality Prolonged QT Abnormal ECG Confirmed by MARIYA GARDINER, WILLIAM ([id number]), supervising editor news reel CHERRY SPEARS ([id number]) on 07/06/2022 11:36:59 AM Referred By: Confirmed By:WILLIAM MERAZ MD
[2022-07-05 10:08] VITALS: BP 119/65; PULSE 104; RESP 20; O2SAT 99
[2022-07-05] MEDS: Potassium Chloride 10mEq/100mL 10 MEQ/100 ML IV.SOLN. 100 MEQ IV BOLUS (11:19)
[2022-07-05 11:21] VITALS: BP 121/78; PULSE 61; RESP 16; O2SAT 99
== END 2022-07-05 13:39 | disposition skilled nursing facility (03) ==
PROVIDERS: Emergency Provider Emergency Medicine; PCP Family Medicine Geriatric Medicine; Visit Provider Emergency Medicine
DX: R40.4 Transient alteration of awareness (principal); E87.6 Hypokalemia; E86.0 Dehydration
CPT/HCPCS: 70450; 71045; 80053; 81001; 83605; 84484; 85025; 87811; 93005; 96365; 96366; 99285; J7030; J7040; P9612; A4216

== ENCOUNTER 2022-07-09 13:46 | Observation (INO) | payer MEDICARE, MEDICAID, SELFPAY ==
[2022-07-09] VITALS (7 sets, daily range): BP systolic 112–148; BP diastolic 59–95; PULSE 62–73; RESP 16–18; TEMP 35.8–36.7; O2SAT 98–100; BMI 19.5; BMI 20.2
--- NOTE | 2022-07-09 14:10 | EKG12_ITS ---
Test Reason : ALT MENTAL STATUS Blood Pressure : / mmHG Vent. Rate : 061 BPM Atrial Rate : 061 BPM P-R Int : 162 ms QRS Dur : 062 ms QT Int : 446 ms P-R-T Axes : 050 035 058 degrees QTc Int : 448 ms Sinus rhythm with Premature atrial complexes Possible Left atrial enlargement Borderline ECG Confirmed by TRAN GARDINER, KARIS ([id number]), tape editor CHERRY SPEARS ([id number]) on 07/13/2022 8:15:01 AM Referred By: Confirmed By:KARIS MAYFIELD MD
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
[2022-07-09 14:35] LABS: Hematocrit 38.6 % (37-47); Hemoglobin 12.8 g/dL (12.0-15.0); Mean Corp Hgb Conc 33.2 g/dL (32-36); Mean Corpuscular Hgb 32.2 pg (27.0-32.0); Mean Platelet Vol. 12.9 fl (6.2-12.0); Platelet Count 264 K/mm3 (150-450); RBC Distribution Width CV 13.3 % (11.6-14.6); RBC Distribution Width SD 47.8 fl (35.1-43.9); Red Blood Count 3.98 M/mm3 (4.2-5.4); White Blood Count 6.6 K/mm3 (4.4-11.0)
--- NOTE | 2022-07-09 14:38 | CT_ITS ---
STUDY: CT BRAIN WITHOUT CONTRAST REASON FOR EXAM: Female, 87 years old. Mental status change RADIATION DOSAGE (If Supplied By Facility): CTDIvol = ( 44.99 ) mGy, DLP = ( 762.36 ) mGycm TECHNIQUE: Transaxial CT imaging of the brain was performed without administration of intravenous contrast material. Individualized dose optimization techniques were used for this CT. COMPARISON: Comparison is made with prior study 07/05/2022. FINDINGS: Normal soft tissue structures. Normal calvarium. There is moderate cerebral atrophy with widening of the extra-axial spaces and ventricular dilatation. There are areas of decreased attenuation within the white matter tracts of the supratentorial brain, consistent with microvascular disease changes. Normal basal ganglia and thalami. Normal brainstem. There is mild cerebellar atrophy. There is no intracranial hemorrhage. There are no findings of an acute ischemic infarction. Atherosclerotic calcification of the cavernous portions of the internal carotid artery bilaterally. Normal visualized paranasal sinuses. CT/Brain/Head without Contrast IMPRESSION: Chronic involutional changes of the brain. Electronically Signed: Ronald Gonzalez MD at 15:20 EST ,
[2022-07-09 15:19] LABS: Anion Gap 9 (5-15); BUN 18 mg/dL (7-18); BUN/Creat Ratio 26.5 RATIO (10-20); Calcium,Total 10.2 mg/dL (8.5-10.1); Chloride 102 mmol/L (98-107); Creatinine, Serum 0.68 mg/dL (0.55-1.02); EST Glomerular Filtration Rate 87 mL/min (>60); Est Glom Filt Rate - Afr Amer 105 mL/min (>60); Estimated Creatinine Clearance 31.28 ml/min; Glucose 93 mg/dL (74-106); Potassium 3.2 mmol/L (3.5-5.1); Sodium Level 141 mmol/L (136-145); Troponin-I HS 13 pg/mL (3.0-54.0)
--- NOTE | 2022-07-09 15:28 | HP.PCM.HOS_ITS ---
HPI - General General Date of Admission: 07/09/22 Date of Service: 07/09/22 Chief Complaint: altered mental status HPI Narrative VANITA FOLEY, is a 87 F with a PMH as outlined who presents via the ED on 07/09/2022 with a complaint of altered mental status. She was admitted from her SNF after she was found to be unresponsive; she subsequently wouldnt follow commands and was crying, shaking and hysterical. Her symptoms started about 2 hours prior to admission. Patient had a similar episode ~ 4 days ago and she was seen in the ED where workup was negative, with normal CT brain and normal urinalysis. Patient has a history of dementia. Per family, these episodes of emotional outbursts vacillate between crying for no reason and laughing h ysterically. VItals were stable in the ED. CBC showed Hb of 12.8 and wbc of 6.6, platelets of 264. BMP showed sodium of 141 and potassium of 3.2. Calcium was 10.2, but labs were otherwise WNL. CT of the brain showed no acute intracranial pathology. She is being admitted to be managed for acute metabolic encephalopathy of unknown etiology. History was mainly taken from her grandson [facility] Medical History Anxiety Aphasia Dementia History of stroke History of TIAs Macrocytosis PAD (peripheral artery disease) Home Medications carbidopa 25 mg-levodopa 100 mg tablet 1 tab PO TID parkinsons 01/15/22 [History Last Taken 07/09/22] donepezil 10 mg tablet 10 mg PO DAILY memory 01/15/22 [History Last Taken 07/09/22] memantine 10 mg tablet 10 mg PO DAILY memory 01/15/22 [History Last Taken 07/09/22] bumetanide 2 mg tablet 2 mg PO DAILY EDEMA 07/09/22 [History Last Taken 07/09/22] loratadine 10 mg tablet 10 mg PO DAILY ALLERGY 07/09/22 [History Last Taken 07/07/22] midodrine 2.5 mg tablet 2.5 mg PO BID BP 07/09/22 [History Last Taken 07/09/22] potassium chloride 20 mEq tablet,extended release(part/cryst) (Klor-Con M) 20 meq PO WE SUPPLEMENT 07/09/22 [History Last Taken 07/07/22] Allergy/AdvReac Type Severity Reaction Status Date / Time morphine AdvReac Nausea/Vom/ Verified 01/24/22 11:25 Diarrhea Surgical History Hx of bilateral hip replacements Social History household members: family Smoking Status: Never smoker alcohol intake: never substance use type: does not use ROS Review of Systems ROS Unobtainable: due to encephalopathy and other Details: grandson able to give a few answers to review of systems Constitutional Constitutional: Reports fatigue, malaise and weakness; Denies anorexia, change in weight or chills Eyes Eyes: Denies change in vision ENT HEENT: Denies dysphagia, headache(s) or sore throat Cardiovascular Cardiovascular: Denies chest pain, dyspnea on exertion, edema, lightheadedness, orthopnea, palpitations, paroxysmal nocturnal dyspnea or rapid heart rate Respiratory/Chest Respiratory/Chest: Denies cough, productive cough or shortness of breath at rest Gastrointestinal Gastrointestinal: Reports constipation; Denies abdominal pain, diarrhea, nausea or vomiting Genitourinary Genitourinary: Denies burning urination or dysuria Neurologic Neurologic: Reports confusion; Denies disequilibrium, dizziness, focal weakness, headache(s), numbness, seizures or syncope Psychiatric Psychiatric: Denies anxiety or depression Vital Signs Vital Signs Vital Signs: 07/09/22 13:51 Temperature 96.5 F L Temperature Source Temporal Pulse Rate 64 Respiratory Rate 16 Blood Pressure 144/68 H Blood Pressure Mean 93 Pulse Ox 100 Oxygen Delivery Method Room Air Weight Weight: 110 lb 3.698 oz Body Mass Index (BMI) 19.5 Physical Exam Const alert Constitutional Narrative: confused General Appearance: cooperative Orientation / Consciousness: confused HEENT normocephalic and head/scalp atraumatic HEENT Narrative: oral mucosa dry Eyes PERRL and EOMs intact bilaterally Neck no lymphadenopathy, supple and no JVD Resp normal respiratory effort, no retractions, no use of accessory muscles and clear to auscultation bilaterally Cardio regular rate, regular rhythm, S1 normal heart sound, S2 normal heart sound and no murmurs GI normal to inspection, nondistended, normoactive bowel sounds, soft to palpation and non-tender Extremity normal to inspection, full ROM and no clubbing, cyanosis or edema Neuro Neuro Narrative: alert, confused, oriented to only place moves all extremities. Had bouts of excessive laughter, then crying, and then shaking her upper extremities. Psych Psych Narrative: affect as under neuro, labile affect Results Lab / Micro Data Result Diagrams: 07/09/22 14:25 07/09/22 14:25 Labs: Laboratory Results - last 24 hr 07/09/22 14:25: WBC 6.6, RBC 3.98 L, Hgb 12.8, Hct 38.6, MCV 97.0, MCH 32.2 H, MCHC 33.2, RDW Std Deviation 47.8 H, RDW Coeff of Marcial 13.3, Plt Count 264, MPV 12.9 H 07/09/22 14:25: Sodium 141, Potassium 3.2 L, Chloride 102, Carbon Dioxide 30.0, Anion Gap 9, BUN 18, Creatinine 0.68, Estim Creat Clear Calc 31.28, Est GFR (MDRD) Af Amer 105, Est GFR (MDRD) Non-Af 87, BUN/Creatinine Ratio 26.5 H, Glucose 93, Calcium 10.2 H, Troponin I High Sens [address] 07/09/22 14:38 IMPRESSION: Chronic involutional changes of the brain. 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 Get EEG * SOC neurology consult after EEG and MRI are completed * PT./OT consult * fall precautions * seizure precautions * #Hypokalemia: K is 3.2. Will replace and trend. #Alzheimer's dementia: on memantine and donepezil #Parkinson's disease: on levodopa and carbidopa DVT prophylaxis: lovenox COde status: DNRCCA no intubation * her grandson is her healthcare POA and he affirmed that patient did not want any resuscitative measures but he wanted to have any treatment necessary until he got to the point where she needed to be resuscitated. CODE STATUS is therefore DNR CCA no intubation. * total face to face time: 16 mins Charges/Coding Visit Charges OBSV E&M: 95485 Initial observation care L2 Procedures Hospitalists Procedures: 34829 Advncd Care Plan 30 Min
[2022-07-09 15:47] LABS: Mucous, Urine 0 SEEN /hpf (<or=2+); Red Blood Cells-Urine 0 SEEN /hpf (0-5)
[2022-07-09 15:53] LABS: Color, Urine Straw (Yellow); Glucose, Dipstick Normal (Normal); Ketone-Dipstick 5 mg/dl (Negative); Leukocyte Esterase-Dipstick 25 /ul (Negative); Nitrite-Dipstick Negative (Negative); Occult Blood-Urine 50 /ul (Negative); Protein-Dipstick Negative (Negative); Urine Bilirubin Dipstick Negative (Negative); Urine Clarity Clear (Clear); Urine Urobilinogen Normal (Normal)
[2022-07-09] MEDS: Potassium Chloride Oral Tablet 20 MEQ 40 MEQ PO (15:53)
[2022-07-09 16:35] LABS: Bacteria 4+ /hpf (None Seen); Hyaline Cast 0-5 SEEN /lpf (0-5); Squamous Epithelial Cells - UA 0-5 SEEN /hpf (5-10); White Blood Cells 0-5 SEEN /hpf (0-5)
[2022-07-09] MEDS: 0.9% Normal Saline 1,000 ML 100 ML IV (18:13)
[2022-07-10] VITALS (10 sets, daily range): BP systolic 114–132; BP diastolic 56–61; PULSE 62–81; RESP 16–18; TEMP 36.4–37; O2SAT 93–99
--- NOTE | 2022-07-10 05:55 | MRI_ITS ---
EXAM: MR HEAD WITHOUT AND WITH INTRAVENOUS CONTRAST CLINICAL INDICATION: acute metabolic encephalopathy TECHNIQUE: Multiplanar and multisequence MR images of the brain were obtained without and with intravenous contrast. This report was created using [employer] report generation technology. CONTRAST: IV 10ml Clariscan COMPARISON: MRI brain without contrast 01/25/2022. CT head without contrast 07/09/2022. FINDINGS: BRAIN AND EXTRA-AXIAL SPACES: No focal signal abnormalities throughout the brain parenchyma. No abnormally enhancing lesions intra-axially and extra-axially. No intra- or extra-axial hemorrhage. No evidence of acute infarct. No intracranial mass or mass effect. There is preservation of the raymundo/white matter interface. Posterior fossa structures are unremarkable. Ventricles are appropriate for age. No hydrocephalus. Basal cisterns are patent. SELLA: Unremarkable. Normal sella turcica, pituitary gland, infundibular stalk, optic chiasm and hypothalamus. AUDITORY SYSTEM: Unremarkable. The internal auditory canals are patent. BONES/JOINTS: Unremarkable. No discrete lytic or blastic abnormalities. SINUSES: Unremarkable as visualized. Clear. MASTOID AIR CELLS: Unremarkable as visualized. Clear. ORBITS: Unremarkable as visualized. Both globes, extraocular muscles, optic nerves and retrobulbar fat appear unremarkable. VASCULATURE: Unremarkable as visualized. Normal flow voids in the major intracranial circulation. MRI/Brain W/WO Contrast IMPRESSION: 1. No MRI evidence of acute or subacute ischemic infarct or acute intracranial abnormality. 2. No abnormal enhancing lesions intra-axially and extra-axially. 3. No interval change when compared to 01/25/2022. Electronically Signed: Dada Coon MD at 12:23 [facility] ,
--- NOTE | 2022-07-10 06:00 | NURSING ---
Pt does not follow commands. Pt would initially respond when woken up from sleeping and then closes her eyes and refuses to do/say anything, and then pt would try to open her eyes a little, but as soon as this RN tries to talk to pt, she closes her eyes back and stays quiet. This RN had 2 other nurses come in and try to get pt to respond to them, but was unsuccessful. Pt refuses to open her eyes and forcibly keeps them close despite this RN trying to manually open them, her pupils are reactive to light. She would randomly rambles about things unrelated to questions, and then when asked to explain further, pt does not answer anymore and keeps her eyes shut.
[2022-07-10 06:34] LABS: Absolute Lymphocyte Count 1.63 X10^3/uL (0.83-4.51); Absolute Neutrophil Count 4.9 X10^3/uL (2.0-7.7); Basophil# 0.04 X10^3/uL; Basophil% 0.6 % (0-1); Eosinophil# 0.03 X10^3/uL; Eosinophils% 0.4 % (0-5); Hematocrit 32.8 % (37-47); Hemoglobin 10.5 g/dL (12.0-15.0); Lymphocyte # 1.63 X10^3/ul (0.83-4.51); Lymphocyte % 22.6 % (19-41); Mean Corpuscular Hgb 31.5 pg (27.0-32.0); Mean Corpuscular Volume 98.5 fL (81-99); Mean Platelet Vol. 13.3 fl (6.2-12.0); Monocyte# 0.55 X10^3/uL; Monocyte% 7.6 % (0-10); NRBC Flagged by Analyzer 0 % (0-5); Neutrophil # 4.92 X10^3/uL (2.7-7.7); Neutrophil % 68.4 % (47-70); Platelet Count 206 K/mm3 (150-450); RBC Distribution Width CV 13.6 % (11.6-14.6); RBC Distribution Width SD 49.2 fl (35.1-43.9); Red Blood Count 3.33 M/mm3 (4.2-5.4); White Blood Count 7.2 K/mm3 (4.4-11.0)
[2022-07-10 07:06] LABS: Anion Gap 7 (5-15); BUN 14 mg/dL (7-18); BUN/Creat Ratio 23.3 RATIO (10-20); Calcium,Total 8.5 mg/dL (8.5-10.1); Chloride 111 mmol/L (98-107); EST Glomerular Filtration Rate 100 mL/min (>60); Est Glom Filt Rate - Afr Amer 121 mL/min (>60); Estimated Creatinine Clearance 32.35 ml/min; Glucose 76 mg/dL (74-106); Potassium 3.8 mmol/L (3.5-5.1); Sodium Level 144 mmol/L (136-145)
[2022-07-10] MEDS: Memantine Hydrochloride 10 MG Tablet PO (09:34)
[2022-07-10] MEDS: Loratadine 10 MG Tablet PO (09:34)
[2022-07-10] MEDS: Bumetanide 2 MG Tablet PO (09:35)
[2022-07-10] MEDS: Enoxaparin 40 MG/0.4 ML Syringe SC (09:35)
[2022-07-10] MEDS: Donepezil HCl 10 MG Tablet PO (09:35)
[2022-07-10] MEDS: Midodrine HCl 5 MG Tablet 2.5 MG PO ×2 (09:35→20:51)
--- NOTE | 2022-07-10 12:57 | CASEMGMT ---
Social Work Pt is here from [facility]. SRI called pt's grandson who is POA, message left. He did call back and confirm would like pt to return to [facility] at discharge. Grandson declined SNF list. SW called [facility], spoke w/Lilly in admissions. She confirms pt is there jail under Medicaid. SW explained will send updates, SW faxed updates as weekend staff cannot access [facility]. Green sheet on chart w/transport form in event pt can be discharged on the weekend. SHRUTHI Frank
[2022-07-10] MEDS: Carbidopa/Levodopa 25/100 Tablet PO ×2 (14:43→19:11)
[2022-07-10] MEDS: 0.9% Saline Lock 10 ML Syringe IV (14:43)
--- NOTE | 2022-07-10 15:17 | CASEMGMT ---
Call to grandson, Kaleb Rodriguez, to complete SORIANO form. Explanation done, voices understanding and gives verbal ok for signature. Grandson voices no further questions/concerns/needs. Marcos CORONADO CM
--- NOTE | 2022-07-10 15:59 | PN.HOSP_ITS ---
Subjective Subjective No issues overnight. Patient is alert and followed commands for my exam however is unable to have a meaningful conversation. When I asked her to tell me her name she said the book is called [employer]. I did see her this summer and it seems as if her memory has declined significantly since that point time. Objective Data Objective Data Vital Signs: Vital Signs Temp Pulse Resp BP Pulse Ox O2 Del Method 98.6 F 68 18 123/56 H 98 Room Air 07/10/22 15:10 07/10/22 15:10 07/10/22 15:10 07/10/22 15:10 07/10/22 15:10 07/10/22 15:10 Oxygen Delivery Method Room Air Weight: 51.71 kg Body Mass Index (BMI) 20.2 Intake & Output: Intake and Output for Last 24 Hours 07/08/22 07/09/22 07/10/22 23:59 23:59 23:59 Intake Total 150 / 150 1120 / 1120 Balance 150 / 150 1120 / 1120 Lab / Micro Data Result Diagrams: 07/10/22 05:47 07/10/22 05:47 Labs: Laboratory Results - last 24 hr 07/09/22 15:35: Urine Color Straw, Urine Clarity Clear, Urine pH 5.0, Ur Specific [employer] 1.010, Urine Protein Negative, Urine Glucose (UA) Normal, Urine Ketones 5 H, Urine Occult Blood 50 H, Urine Nitrite Negative, Urine Bilirubin Negative, Urine Urobilinogen Normal, Ur Leukocyte Esterase 25 H, Urine RBC 0 SEEN, Urine WBC 0-5 SEEN, Ur Squamous Epith Cells 0-5 SEEN, Urine Bacteria 4+, Hyaline Casts 0-5 SEEN, Urine Mucus 0 SEEN 07/10/22 05:47: WBC 7.2, RBC 3.33 L, Hgb 10.5 L, Hct 32.8 L, MCV 98.5, MCH 31.5, MCHC 32.0, RDW Std Deviation 49.2 H, RDW Coeff of Marcial 13.6, Plt Count 206, MPV 13.3 H, Immature Gran % (Auto) 0.400, Neut % (Auto) 68.4, Lymph % (Auto) 22.6, [place] % (Auto) 7.6, Eos % (Auto) 0.4, Baso % (Auto) 0.6, Absolute Neuts (auto) 4.9, Absolute Lymphs (auto) 1.63, Nucleated RBC % 0 07/10/22 05:47: Sodium 144, Potassium 3.8, Chloride 111 H, Carbon Dioxide 26.0, Anion Gap 7, BUN 14, Creatinine 0.60, Estim Creat Clear Calc 32.35, Est GFR (MDRD) Af Amer 121, Est GFR (MDRD) Non-Af 100, BUN/Creatinine Ratio 23.3 H, Glucose 76, Calcium 8.5 Radiography Diagnostic Testing: Radiology Impression Brain MRI 07/10/22 05:55 IMPRESSION: 1. No MRI evidence of acute or subacute ischemic infarct or acute intracranial abnormality. 2. No abnormal enhancing lesions intra-axially and extra-axially. 3. No interval change when compared to 01/25/2022. Electronically Signed: Dada Coon MD at 12:23 EST , Physical Exam Const alert, no apparent distress and well nourished Constitutional Narrative: Alert but oriented x0. Was able to tell me part of her birthday-month and date only not year, appears comfortable nontoxic, answers questions nonsensically, intermittently follows commands Orientation / Consciousness: confused HEENT head/scalp atraumatic and moist oral mucous membranes HEENT Narrative: Mallampati 2, no thrush Head and Scalp: normocephalic Eyes PERRL and EOMs intact bilaterally Resp normal respiratory effort, no retractions, no use of accessory muscles and clear to auscultation bilaterally Auscultation: Negative for crackles, rales, rhonchi or wheezes Cardio regular rate, regular rhythm, S1 normal heart sound, S2 normal heart sound, no murmurs, no rub, no gallops and no clicks GI normal to inspection, nondistended, normoactive bowel sounds, soft to palpation and non-tender Extremity no clubbing, cyanosis or edema Extremity Narrative: 2+ pedal pulses Neuro Neuro Narrative: Difficult to perform detailed neuro exam as patient is not compliant continuously with following commands, moves all extremities spontaneously, does not appear to have any sensory deficits, reflexes are 2+, no focal deficits identified, formation of speech is normal however content is poor and nonsensical Sensorium / Orientation: awake Psych Psych Narrative: Calm and pleasant but markedly confused Assessment & Plan Assessment/Plan (1) Altered mental status: (2) Unresponsive: (3) Hypokalemia: PLAN: Plan Acute encephalopathy/altered mental status from baseline -Etiology is unclear -MRI is unremarkable -EEG is pending -SOC consult is pending -PT/OT -Seizure precautions for now -No AEDs as patient has not had any epileptiform activity -Patient still markedly confused although unclear what her baseline is at this time Hypokalemia -Resolved -She is on chronic potassium supplementation at baseline Parkinson's disease -Continue carbidopa levodopa Chronic hypotension -Continue home midodrine Chronic lower extremity edema -Patient is on Bumex -We will continue to for now but monitor closely -No significant swelling identified at this time Dementia -Previously documented as Alzheimer's however with her history of Parkinson's disease Lewy body dementia would be high up on my list of suspicion based on presentation and history -Continue Aricept -Continue Namenda -Add some low-dose Risperdal twice daily at 0.25 mg for any behavioral issues DVT prophylaxis -Continue Lovenox CODE STATUS -DNR CCA with no intubation per her grandson who is healthcare power of [employer] manager Disposition -Patient is able to go back to her ECF at discharge unfortunately neurology has not yet seen her and if there is no further work-up she would be able to go tonight however he to send her back late in the evening however depending on neurology's recommendations we will likely be able to discharge her back to the facility tomorrow Charges/Coding Visit Charges OBSV E&M: 83093 Subsequent observation care L2
[2022-07-10] MEDS: RisperiDONE 0.25 MG Tablet PO (20:51)
[2022-07-11] VITALS (8 sets, daily range): BP systolic 107–132; BP diastolic 55–73; PULSE 60–77; RESP 16; TEMP 36.3–36.8; O2SAT 94–100
[2022-07-11] MEDS: Carbidopa/Levodopa 25/100 Tablet PO ×3 (06:53→16:35)
--- NOTE | 2022-07-11 09:24 | NURSING ---
SOC called to inquire about consult and EEG read. EEG assigned to physician. SOC consult in que.
[2022-07-11] MEDS: Enoxaparin 40 MG/0.4 ML Syringe SC (09:31)
[2022-07-11] MEDS: Memantine Hydrochloride 10 MG Tablet PO (09:31)
[2022-07-11] MEDS: Bumetanide 2 MG Tablet PO (09:32)
[2022-07-11] MEDS: Loratadine 10 MG Tablet PO (09:32)
[2022-07-11] MEDS: Donepezil HCl 10 MG Tablet PO (09:33)
[2022-07-11] MEDS: RisperiDONE 0.25 MG Tablet PO (09:33)
[2022-07-11] MEDS: Midodrine HCl 5 MG Tablet 2.5 MG PO (09:33)
--- NOTE | 2022-07-11 13:06 | PCM.DC.SUM ---
Providers Date of Admission: 07/09/22 Date of Discharge: 07/11/22 Primary Care Physician: Dr. Ta Tucker MD Reason For Visit: altered mental status Diagnosis Discharge Diagnosis (1) Altered mental status: Status: Acute Code(s): R41.82 - Altered mental status, unspecified (2) Unresponsive: Status: Acute Code(s): R41.89 - Other symptoms and signs involving cognitive functions and awareness (3) Hypokalemia: Status: Acute Code(s): E87.6 - Hypokalemia Medications at Discharge Home Medications carbidopa 25 mg-levodopa 100 mg tablet 1 tab PO TID parkinsons 01/15/22 donepezil 10 mg tablet 10 mg PO DAILY memory 01/15/22 bumetanide 2 mg tablet 2 mg PO DAILY EDEMA 07/09/22 loratadine 10 mg tablet 10 mg PO DAILY ALLERGY 07/09/22 midodrine 2.5 mg tablet 2.5 mg PO BID BP 07/09/22 potassium chloride 20 mEq tablet,extended release(part/cryst) (Klor-Con M) 20 meq PO WE SUPPLEMENT 07/09/22 risperidone 0.25 mg tablet 0.25 mg PO BID #7 tabs 07/11/22 Hospital Course Procedures Electroencephalogram and - (MRI brain) Summary of Care Provided Minutes Spent on Discharge: 29 Hospital Course: Mrs. Aly is an 87-year-old white female who presented to the emergency department [facility] on 07/09/2022 from a nursing facility where she has been residing at which time she was found unresponsive and would not follow commands. Evidently she was found crying and shaking hysterically. Her symptoms started approximately 2 hours prior to presentation the emergency department. She had a similar episode 4 days prior and was seen in the emergency department at that time where ED work-up was negative and included a CT of the brain and a urinalysis. Per family these episodes of emotional outbursts vacillate between crying for no reason and laughing hysterically. Vital signs upon presentation were unremarkable. Her chemistry panel showed mild hypercalcemia at 10.2 and hypokalemia with a potassium of 3.2 but was otherwise unremarkable. Her CT of brain was unremarkable for any acute intracranial pathology. She was admitted to the medical floor where an MRI was performed and found to be unremarkable for any acute ischemic changes and showed only chronic involutional changes and a EEG was performed and demonstrated mild diffuse encephalopathy with no epileptiform discharges or seizures patterns or changes. I did initiate Risperdal 0.25 mg twice daily. Her mental status returned to baseline and she was alert and oriented to place and self with confusion on time. This is reportedly her baseline. Her symptoms seem very consistent with pseudobulbar symptoms and I do question whether or not she could have Lewy body dementia rather than Alzheimer's type dementia given her history of Parkinson's disease which would put her at risk for worsening behavioral issues. She was evaluated by neurology and they recommended low dose depakote however we had already started with Risperdal with good results thus far. Will continue Risperdal and hold on Depakote and would consider adding or switching if needed. We did discontinue her Namenda at discharge as this medication can worsen behaviors as well. She was discharged back to her skilled facility in stable condition on 07/11/2022. 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 Patient was able to tell me her name and birthdate as well as was oriented to place. Unable to tell me the current month or year General Appearance: cooperative, comfortable, well kempt and well developed Orientation / Consciousness: confused Exam Limitations: other limitations Nutritional Appearance: thin HEENT normocephalic, head/scalp atraumatic and moist oral mucous membranes Resp normal respiratory effort, no retractions, no use of accessory muscles and clear to auscultation bilaterally Auscultation: Negative for crackles, rales, rhonchi or wheezes Cardio regular rate, regular rhythm, S1 normal heart sound, S2 normal heart sound, no murmurs, no rub, no gallops and no clicks GI normal to inspection, nondistended, normoactive bowel sounds, soft to palpation and non-tender Extremity normal to inspection, full ROM and no clubbing, cyanosis or edema Extremity Narrative: 2+ pedal pulses Neuro CN's II-XII intact bilaterally, no focal motor deficits and no sensory deficits noted Neuro Narrative: Oriented x2 as above, patient still nonsensical with conversation at time however thought processes are more streamlined Sensorium / Orientation: awake Speech: speech normal Psych Psych Narrative: Calm and pleasant significantly less confused Weight / BMI Weight Weight: 51.71 kg Body Mass Index (BMI) 20.2 ABG / Lab / Microbiology Data Result Diagrams: 07/10/22 05:47 07/10/22 05:47 Meaningful Use Info Meaningful Use Diagnoses (Choose all that apply): None applicable Discharge Plan Admission Admit Date/Time: 07/09/22 15:34 Primary Reason for Your Visit: Acute mental status change Attending Provider: Karis Chavez Primary Care Provider: Ta Tucker Chi Consulting Providers: Shelli Faye Discharge Orders/Prescriptions Prescriptions: New risperidone 0.25 mg Tablet 0.25 mg PO BID Qty: 7 0RF Continued donepezil 10 mg tablet 10 mg PO DAILY Label Comments: TAKE 1 TABLET ORALLY ONCE PER DAY FOR 30 DAYS TAKE WITH SUPPER. carbidopa-levodopa 25-100 mg tablet 1 tab PO TID Label Comments: TAKE 1 TABLET ORALLY 3 TIMES PER DAY FOR 30 DAYS bumetanide 2 mg tablet 2 mg PO DAILY potassium chloride [Klor-Con M20] 20 mEq Tablet,Er Particles/Crystals 20 meq PO WE midodrine 2.5 mg tablet 2.5 mg PO BID loratadine 10 mg Tablet 10 mg PO DAILY Discontinued memantine 10 mg tablet 10 mg PO DAILY Label Comments: PLEASE SEE ATTACHED FOR DETAILED DIRECTIONS Referrals / Follow Up: Adrian Eddy MD [Non-Staff -Ordering Privileges] - Within 2 Weeks Ta Tucker Chi, MD [Primary Care Provider] - Within 2 Weeks Disposition Disposition (needs filled in before D/C Order can be placed): Nursing Home Facility Charges/Coding Visit Charges OBSV E&M: 82851 Observation care discharge
--- NOTE | 2022-07-11 16:09 | NURSING ---
Called SOC regarding tele consult. SOC states the DR. will be on within 20 minutes.
--- NOTE | 2022-07-11 16:19 | TREXTCAR_ITS ---
Diet Diet Order/Speech Therapy: 07/09/22 17:48 Diet: Cardiac - Heart Healthy Food consistency:: Regular Liquid Consistency:: Regular/Thin Is pt able to select menu?: No Diet Comments: total feed Routine Orders/Code Status Suppository Frequency: Daily PRN O2 Frequency: PRN Keep PO Greater than or Equal to (%): 92 Code Status: DNRCC-A (no ETT) Problem/Diagnosis (1) Altered mental status: Status: Acute Code(s): R41.82 - Altered mental status, unspecified (2) Unresponsive: Status: Acute Code(s): R41.89 - Other symptoms and signs involving cognitive functions and awareness (3) Hypokalemia: Status: Acute Code(s): E87.6 - Hypokalemia Allergies/Procedures Done in Hospital Allergies morphine Adverse Reaction (Verified 01/24/22 11:25) Nausea/Vom/Diarrhea Procedures: Electroencephalogram and - (MRI) Type of Care/Length of Stay Estimated LOS: More Than 30 Days Type of Care Needed: Intermediate Rehab Potential: Fair Prognosis: Fair Additional Orders/Day of Discharge Additional Orders: Please encourage PO food and liquid intake as pt is high risk for dehydration Day of Discharge: 07/11/22 Discharge Plan Admission Admit Date/Time: 07/09/22 15:34 Primary Reason for Your Visit: Acute mental status change Attending Provider: Karis Chavez Primary Care Provider: Ta Tucker Chi Consulting Providers: Shelli Faye Discharge Orders/Prescriptions Prescriptions: New risperidone 0.25 mg Tablet 0.25 mg PO BID Qty: 7 0RF Continued donepezil 10 mg tablet 10 mg PO DAILY Label Comments: TAKE 1 TABLET ORALLY ONCE PER DAY FOR 30 DAYS TAKE WITH SUPPER. carbidopa-levodopa 25-100 mg tablet 1 tab PO TID Label Comments: TAKE 1 TABLET ORALLY 3 TIMES PER DAY FOR 30 DAYS bumetanide 2 mg tablet 2 mg PO DAILY potassium chloride [Klor-Con M20] 20 mEq Tablet,Er Particles/Crystals 20 meq PO WE midodrine 2.5 mg tablet 2.5 mg PO BID loratadine 10 mg Tablet 10 mg PO DAILY Discontinued memantine 10 mg tablet 10 mg PO DAILY Label Comments: PLEASE SEE ATTACHED FOR DETAILED DIRECTIONS Referrals / Follow Up: Adrian Eddy MD [Non-Staff -Ordering Privileges] - Within 2 Weeks Ta Tucker Chi, MD [Primary Care Provider] - Within 2 Weeks Disposition Disposition (needs filled in before D/C Order can be placed): Long Term Facility
--- NOTE | 2022-07-11 17:29 | NURSING ---
I spoke with [facility] informing her of pt's d/c.
--- NOTE | 2022-07-11 17:39 | NURSING ---
pt awake and talking with nurse at bedside then when soc came on pt shut eyes and would not open them and refused to answer questions and started moving arms back in forth over top of bed back and forth. unable to do full neuro exam and assisted neurologist as best as could. dr. cox notified of recomendations and pt dc'd . family called and aware of dc.
== END 2022-07-11 19:36 | disposition skilled nursing facility (03) ==
LOC: ED 15:40 → PCU 15:47
PROVIDERS: Admitting Provider Student in an Organized Health Care Education/Training Program; Emergency Provider Emergency Medicine; PCP Family Medicine Geriatric Medicine; Visit Provider Internal Medicine
DX: R41.82 Altered mental status, unspecified (principal); G20 Parkinson's disease; G30.1 Alzheimer's disease with late onset; F02.80 Dementia in other diseases classified elsewhere, unspecified severity, without behavioral disturbance, psychotic disturbance, mood disturbance, and anxiety; I73.9 Peripheral vascular disease, unspecified; E87.6 Hypokalemia; R60.0 Localized edema; I95.89 Other hypotension; E83.52 Hypercalcemia; Z79.899 Other long term (current) drug therapy; Z79.82 Long term (current) use of aspirin; Z86.73 Personal history of transient ischemic attack (TIA), and cerebral infarction without residual deficits
CPT/HCPCS: 36415; 70450; 70553; 80048; 81001; 84484; 85025; 85027; 87426; 93005; 95819; 96360; 96361; 96372; 97162; 97165; 97530; 99218; 99285; A9575; J7030; A4216; G0378

== ENCOUNTER → 2023-02-24 | Outpatient (REF) | payer MEDICARE, MEDICAID, SELFPAY ==
[2023-02-24 09:53] LABS: Hematocrit 37.3 % (37-47); Hemoglobin 11.6 g/dL (12.0-15.0); Mean Corp Hgb Conc 31.1 g/dL (32-36); Mean Corpuscular Hgb 32.2 pg (27.0-32.0); Mean Corpuscular Volume 103.6 fL (81-99); Mean Platelet Vol. 13.7 fl (6.2-12.0); Platelet Count 191 K/mm3 (150-450); RBC Distribution Width CV 13.5 % (11.6-14.6); RBC Distribution Width SD 52.1 fl (35.1-43.9); White Blood Count 6.7 K/mm3 (4.4-11.0)
[2023-02-24 10:11] LABS: Anion Gap 7 (5-15); BUN 28 mg/dL (7-18); BUN/Creat Ratio 36.9 RATIO (10-20); Calcium,Total 8.8 mg/dL (8.5-10.1); Chloride 107 mmol/L (98-107); Creatinine, Serum 0.76 mg/dL (0.55-1.02); EST Glomerular Filtration Rate 77 mL/min (>60); Est Glom Filt Rate - Afr Amer 93 mL/min (>60); Glucose 85 mg/dL (74-106); Magnesium 2.5 mg/dL (1.6-2.6); Sodium Level 141 mmol/L (136-145)
== END ==
LOC: OLS.SW 05:30
PROVIDERS: PCP Family Medicine Geriatric Medicine; Visit Provider Internal Medicine
DX: Z02.2 Encounter for examination for admission to residential institution (principal)
CPT/HCPCS: 36415; 80048; 83735; 85027

== ENCOUNTER → 2023-02-25 | Outpatient (REF) | payer MEDICARE, MEDICAID, SELFPAY ==
[2023-02-25 08:35] LABS: Hematocrit 42.7 % (37-47); Hemoglobin 13.5 g/dL (12.0-15.0); Mean Corp Hgb Conc 31.6 g/dL (32-36); Mean Corpuscular Hgb 32.4 pg (27.0-32.0); Mean Corpuscular Volume 102.4 fL (81-99); Mean Platelet Vol. 13.5 fl (6.2-12.0); Platelet Count 213 K/mm3 (150-450); RBC Distribution Width CV 13.8 % (11.6-14.6); RBC Distribution Width SD 52.3 fl (35.1-43.9); Red Blood Count 4.17 M/mm3 (4.2-5.4); White Blood Count 6.9 K/mm3 (4.4-11.0)
[2023-02-25 08:49] LABS: Anion Gap 5 (5-15); BUN 24 mg/dL (7-18); BUN/Creat Ratio 28.5 RATIO (10-20); Calcium,Total 9.2 mg/dL (8.5-10.1); Chloride 106 mmol/L (98-107); Creatinine, Serum 0.84 mg/dL (0.55-1.02); EST Glomerular Filtration Rate 68 mL/min (>60); Est Glom Filt Rate - Afr Amer 82 mL/min (>60); Glucose 80 mg/dL (74-106); Magnesium 2.8 mg/dL (1.6-2.6); Potassium 4.3 mmol/L (3.5-5.1); Sodium Level 139 mmol/L (136-145)
== END ==
LOC: OLS.SW 05:34
PROVIDERS: PCP Family Medicine Geriatric Medicine; Referring Provider Internal Medicine; Visit Provider Internal Medicine
DX: G20 Parkinson's disease (principal); M62.81 Muscle weakness (generalized)
CPT/HCPCS: 36415; 80048; 83735; 85027

== ENCOUNTER → 2023-03-15 | Outpatient (REF) | payer MEDICARE, MEDICAID, SELFPAY ==
[2023-03-15 08:44] LABS: Magnesium 2.6 mg/dL (1.6-2.6)
== END ==
LOC: OLS.SW 05:00
PROVIDERS: PCP Family Medicine Geriatric Medicine; Visit Provider Internal Medicine
DX: E83.42 Hypomagnesemia (principal)
CPT/HCPCS: 36415; 83735

== ENCOUNTER → 2023-04-11 | Outpatient (REF) | payer MEDICARE, MEDICAID, SELFPAY ==
[2023-04-11 07:34] LABS: Mucous, Urine 0 SEEN /hpf (<or=2+)
[2023-04-11 08:51] LABS: Color, Urine Yellow (Yellow); Glucose, Dipstick Normal (Normal); Ketone-Dipstick Negative (Negative); Leukocyte Esterase-Dipstick 500 /ul (Negative); Nitrite-Dipstick Negative (Negative); Occult Blood-Urine 50 /ul (Negative); Protein-Dipstick 30 mg/dl (Negative); Urine Bilirubin Dipstick Negative (Negative); Urine Clarity Sl. Cloudy (Clear); Urine Urobilinogen Normal (Normal)
[2023-04-11 09:02] LABS: Red Blood Cells-Urine 0-5 SEEN /hpf (0-5)
[2023-04-11 09:03] LABS: Bacteria 2+ /hpf (None Seen); Squamous Epithelial Cells - UA 0-5 SEEN /hpf (5-10); White Blood Cells 25-50 SEEN /hpf (0-5)
== END ==
LOC: OLS.SW 07:33
PROVIDERS: PCP Family Medicine Geriatric Medicine; Referring Provider Internal Medicine; Visit Provider Internal Medicine
DX: R41.840 Attention and concentration deficit (principal); R41.82 Altered mental status, unspecified
CPT/HCPCS: 81001; 87077; 87086; 87088; 87186

== ENCOUNTER → 2023-06-08 | Outpatient (REF) | payer MEDICARE, MEDICAID, SELFPAY ==
[2023-06-08 08:05] LABS: Hematocrit 43.2 % (37-47); Hemoglobin 13.3 g/dL (12.0-15.0); Mean Corp Hgb Conc 30.8 g/dL (32-36); Mean Corpuscular Hgb 31.8 pg (27.0-32.0); Mean Corpuscular Volume 103.3 fL (81-99); Mean Platelet Vol. 13.8 fl (6.2-12.0); POSITIVE COUNT YES; RBC Distribution Width CV 14.8 % (11.6-14.6); RBC Distribution Width SD 56.2 fl (35.1-43.9); Red Blood Count 4.18 M/mm3 (4.2-5.4); White Blood Count 10.3 K/mm3 (4.4-11.0)
[2023-06-08 08:37] LABS: Scan Indicated on CBC? Y/N YES- FLAGS NOTED
[2023-06-08 08:41] LABS: Color, Urine Yellow (Yellow); Glucose, Dipstick Normal (Normal); Ketone-Dipstick Negative (Negative); Leukocyte Esterase-Dipstick 500 /ul (Negative); Nitrite-Dipstick Positive (Negative); Occult Blood-Urine 25 /ul (Negative); Protein-Dipstick 100 mg/dl (Negative); Urine Bilirubin Dipstick Negative (Negative); Urine Clarity Cloudy (Clear); Urine Urobilinogen Normal (Normal)
== END | disposition home or self-care (01) ==
LOC: OLS.SW 05:00
PROVIDERS: PCP Family Medicine Geriatric Medicine; Visit Provider Internal Medicine
DX: Z79.899 Other long term (current) drug therapy (principal)
CPT/HCPCS: 36415; 81002; 85027; 87077; 87086; 87088; 87186

== ENCOUNTER → 2023-07-30 | Outpatient (REF) | payer MEDICARE, MEDICAID, SELFPAY ==
--- OUTSIDE RECORDS SUMMARY | 2023-07-30 20:59 | XMS RPT_ITS | CCD ---
Author Name Unknown Address [address] [place] [address] Organization [facility] Care Team Providers Care Bariatric Program Coordinator Name Role Phone Krys Ontiveros Unavailable Unavailable Jevon Danielson MD Unavailable Krys Ontiveros Unavailable Unavailable Jevon Danielson MD Unavailable Allergies Allergy Classification Reported Allergen(s) Allergy Type Date of Onset Reaction(s) Facility (5 sources) morphine Drug Allergy 04-20-2017 [facility] Work Phone: Medications Completed/Discontinued Medications Medication Drug Class(es) Dates Sig (Normalized) Sig (Original) Ibuprofen (5 sources) Nonsteroidal Anti-inflammatory Drug IBUPROFEN CAPS as needed IBUPROFEN CAPS [phone] Krys Ontiveros Drug Treatment Unknown - unknown (1 source) No information available. 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; Translations: [Basal cell carcinoma of skin of nose] Onset: 05-25-2017 07-03-2017 Chronic Unclassified (2 sources) No current problems or disability 04-19-2017 Unclassified (1 source) Aftercare ; Translations: [Encounter for other specified surgical aftercare] Onset: 05-25-2017 07-03-2017 Past or Other Problems Problem Classification Problem Date Documented Da te Episodic/Chronic Neoplasms of unspecified nature or uncertain behavior (4 sources) Neoplasm of face; Translations: [Neoplasm of unspecified behavior of bone, soft tissue, and skin] Onset: 04-20-2017 05-19-2017 Episodic Results Test Name Value Interpretation Reference Range Facil ity Vital Signs Date Time Vital Sign Value Performing Clinician Faci lity 05-25-2017 15:53-0400 BMI (Body Mass Index) 24.58 kg/m2 Jevon Danielson MD [facility] Work Phone: 05-25-2017 15:53-0400 Body Temperature 97.9 [degF] Jevon Danielson MD [facility] Work Phone: 05-25-2017 15:53-0400 BP Diastolic 76 mm[Hg] Jevon Danielson MD [facility] Work Phone: 05-25-2017 15:53-0400 BP Systolic 121 mm[Hg] Jevon Danielson MD [facility] Work Phone: 05-25-2017 15:53-0400 BSA (Body Surface Area) 1.66 m2 Jevon Danielson MD [facility] Work Phone: 05-25-2017 15:53-0400 Height 160.02 cm Jevon Danielson MD [facility] Work Phone: 05-25-2017 15:53-0400 Pulse (Heart Rate) 71 /min Jevon Danielson MD [facility] Work Phone: 05-25-2017 15:53-0400 Respiratory Rate 14 /min Jevon Danielson MD [facility] Work Phone: 05-25-2017 15:53-0400 Weight 62.96 kg Jevon Danielson MD [facility] Work Phone: 04-20-2017 09:37-0400 BMI (Body Mass Index) 24.83 kg/m2 Jevon Danielson MD [facility] Work Phone: 04-20-2017 09:37-0400 Body Temperature 97.5 [degF] Jevon Danielson MD [facility] Work Phone: 04-20-2017 09:37-0400 BP Diastolic 73 mm[Hg] Jevon Danielson MD [facility] Work Phone: 04-20-2017 09:37-0400 BP Systolic 128 mm[Hg] Jevon Danielson MD [facility] Work Phone: 04-20-2017 09:37-0400 BSA (Body Surface Area) 1.66 m2 Jevon Danielson MD [facility] Work Phone: 04-20-2017 09:37-0400 Height 160.02 cm Jevon Danielson MD [facility] Work Phone: 04-20-2017 09:37-0400 Pulse (Heart Rate) 64 /min [facility] Work Phone: 04-20-2017 09:37-0400 Respiratory Rate 14 /min Jevno Danielson MD [facility] Work Phone: 04-20-2017 09:37-0400 Weight 63.59 kg Jevon Danielson MD [facility] Work Phone: Procedures Date Procedure Procedure Detail Performing Clinician Start: 04-20-2017 End: 05-19-2017 Follow Up Appt Other Jevon Danielson MD Start: 04-20-2017 End: 04-20-2017 Documentation of current medications Jevon Danielson MD Plan of Treatment Date Care Activity Detail Author Start: 05-25-2017 End: 05-25-2017 Appointment Appointment [facility] Work Phone: Start: 05-25-2017 End: 07-09-2017 Follow Up Appt 6 months Follow Up Appt 6 months [facility] Work Phone: Start: 05-19-2017 End: 05-19-2017 Appointment Appointment [facility] Work Phone: Start: 04-20-2017 End: 05-19-2017 Follow Up Appt Other Follow Up Appt Other [facility] Work Phone: Start: 04-20-2017 End: 04-20-2017 Appointment Appointment [facility] Work Phone: Start: 04-20-2017 End: 05-18-2017 Follow Up Appt Other Follow Up Appt Other [facility] Work Phone: Progress note 02-25-2021 Note Date & Type Note Facility 02-25-2021 Note HNO ID: [id number] Author: RT Jenni(R) Service: ? Author Type: [employer] Type: Progress Notes Filed: 02/25/2021 3:20 PM Note Text: Radiology Service Progress Note PATIENT NAME: Vanita Aly DATE OF SERVICE: February 25, 2021 TIME: 3:20 PM PATIENT IDENTITY VERIFICATION COMPLETED USING TWO (2) IDENTIFIERS: Name and Date of confirmed by patient verbally. FALL SCREENING: Has the patient had 2 falls in the last year or 1 fall with injury or currently using an Ambulatory Assistive Device (Walker, Cane, Wheelchair, Crutches, etc.)? Yes, Patient High Risk for Falls What interventions were put in place to prevent falls during this visit? Instructed Patient to Call for Help if Needed, Offered Assistance with Transfers/Clothing, Instructed Patient to Remain Seated (Not on Exam Table) Until Exam and Increased Observations by Caregivers PATIENT GENDER DATA: Female. status: : No status: NO. PATIENT RELEVANT IMPLANT DATA REVIEWED: Yes RADIOLOGY DEPARTMENT: MR; Exam(s) Completed: Head: Routine Brain PERIPHERAL IV DATA: Not applicable SIGNED BY: RT Jenni(R) February 25, 2021 3:20 PM [facility] Progress note 02-18-2021 Note Date & Type Note Facility 02-18-2021 Note HNO ID: [id number] Author: Lorie Barr MD Service: ? Author Type: Physician Type: Progress Notes Filed: 02/23/2021 5:36 PM Note Text: This note was created using Ultrivater. Subjective Vanita Aly is a 85 year old female. Patient presents with: Dizzy when standing SUBJECTIVE: Vanita Aly is a 85 year old year old lady here today for acute appointment for review of medical conditions. Present with grandson. Had seen Dr. Thomas seen just twice after Dr. Eagle retired. In process of being established with Dr. Reyes. Here for concerns regarding dizziness. Turns out had spoken to triage nurse and recommended evaluation per protocol. Patient had already been seen by Faith Argueta and had MRI scheduled. Main concern was feeling of confusion when stood up. Wondered if this was something they should be worried about. She used the word disoriented but when clarified, she did not mean that she was disoriented to person, place or time. More of a sense of imbalance. Did not really feel like passing out. Maybe a sense of movement though not full blown spinning. Has sinus problems Comes and goes Winter had symptoms more. A/C might contribute. 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 ?partial hip replacement in 2014. Does worry about possible falling because of the dizziness, so gets anxious about the feeling of dizziness when stands up and make her worry that she might fall and damage the hip replacements. Reviewed issues with dizziness details: Dizziness the past 4 to 5 weeks persistent; going on prior to that. Trouble with balance Not feeling like passing out. Only when standing Fine when looking at things. Fine when sitting. Not spinning. Some sense of movement when first stand up. No falls. Puts hands on furniture for balance. Walking okay. But tore tendons on insides of each foot (when was standing on tiptoes) so walks differently . Complains of cicadas sound in her ears. Chronic. No severe hearing loss issues noted. Has not had prior ENT evaluation for tinnitus or possible Meniere's. Noted that sometimes she is lost in thought when someone asks her a question and takes a little time to catch up with what they are asking her about. PAST MEDICAL HISTORY Diagnosis Date - Chronic rhinitis Current Outpatient Medications Medication Sig - Ascorbic Acid (VITAMIN C) 1,000 mg tablet Take 1 tablet by mouth once daily. - Cholecalciferol, Vitamin D3, 25 mcg (1,000 unit) cap Take 1 capsule by mouth once daily. - cephALEXin (KEFLEX) 500 mg capsule Take 1 capsule by mouth twice daily. (Patient not taking: Reported on 02/18/2021 ) No current facility-administered medications for this visit. Review of Systems Objective BP 106/62 Pulse 60 Resp 18 Wt 50.3 kg (111 lb) Physical Exam Constitutional: Appearance: Normal appearance. Comments: Thin HENT: Head: Normocephalic. Eyes: Conjunctiva/sclera: Conjunctivae normal. Cardiovascular: Rate and Rhythm: Normal rate and regular rhythm. Heart sounds: Normal heart sounds. Pulmonary: Effort: Pulmonary effort is normal. Breath sounds: Normal breath sounds. Skin: General: Skin is warm and dry. Neurological: General: No focal deficit present. Mental Status: She is alert and oriented to person, place, and time. Psychiatric: Attention and Perception: Attention and perception normal. Mood and Affect: Mood and affect normal. Speech: Speech normal. Behavior: Behavior normal. Behavior is cooperative. Thought Content: Thought content normal. Judgment: Judgment normal. Component Latest Ref Rng AND Units 02/09/2021 WBC 3.70 - 11.00 k/uL 5.84 RBC 3.90 - 5.20 m/uL 3.91 Hemoglobin 11.5 - 15.5 g/dL 12.4 Hematocrit 36.0 - 46.0 % 39.1 MCV 80.0 - 100.0 fL 100.0 MCH 26.0 - 34.0 pG 31.7 MCHC 30.5 - 36.0 g/dL 31.7 RDW-CV 11.5 - 15.0 % 14.1 Platelet Count 150 - 400 k/uL 223 MPV 9.0 - 12.7 fL 13.6 (H) Neut% % 59.2 Abs Neut (ANC) 1.45 - 7.50 k/uL 3.45 Lymph% % 31.2 Abs Lymph 1.00 - 4.00 k/uL 1.82 Brazos% % 8.2 Abs Brazos <0.87 k/uL 0.48 Eosin% % 0.5 Abs Eosin <0.46 k/uL 0.03 Baso% % 0.9 Abs Baso <0.11 k/uL 0.05 Nucleated Reds 0 /100 WBC 0.0 Absolute nRBC <0.01 k/uL <0.01 Diff Type Auto Diff Color Yellow Dark Yellow (A) Clarity Clear Slightly Cloudy (A) Glucose, Urine Negative mg/dL Negative Bilirubin, Urine Negative Negative Ketones, Urine Negative Negative Specific Brilliant, Ur 1.005 - 1.030 1.027 Hemoglobin/Blood,Ur Negative 1+ (A) pH, Urine 5.0 - 8.0 5.0 Protein, Urine Negative 1+ (A) Urobilinogen Negative E.U./dL Negative Nitrites Negative Negative Leukest Negative 3+ (A) Comment SEE COMMENT Urine Luis Comment SEE COMMENT WBC, Urine 0 - 5 /HPF >25 (A) RBC, Urine 0 - 3 /HPF 6-10 (A) Cast 0 /LPF SEE COMMENT (A) Epithelial Cells /HPF SEE COMMENT Crystal 0 /HPF SEE COMMENT (A) Protein, Total 6.3 - 8.0 g/dL 6.6 Albumin 3.9 - 4.9 g/dL 4.4 (more content not included)... [facility] Progress note 06-21-2021 Note Date & Type Note Facility 02-09-2021 Note HNO ID: [id number] Author: RT Joseline(Radha) Service: Radiology Author Type: [employer]arer Type: Progress Notes Filed: 02/09/2021 1:57 PM Note Text: Radiology Service Progress Note PATIENT NAME: Vanita Aly DATE OF SERVICE: February 09, 2021 TIME: 1:57 PM PATIENT IDENTITY VERIFICATION COMPLETED USING TWO (2) IDENTIFIERS: Name and Date of confirmed by patient verbally. FALL SCREENING: Has the patient had 2 falls in the last year or 1 fall with injury or currently using an Ambulatory Assistive Device (Walker, Cane, Wheelchair, Crutches, etc.)? No PATIENT GENDER DATA: Female. status: : No status: NO. PATIENT RELEVANT IMPLANT DATA REVIEWED: Not Applicable RADIOLOGY DEPARTMENT: General X-ray: Exam(s) Completed: Chest X-Ray PERIPHERAL IV DATA: Not applicable SIGNED BY: RT Joseline(Radha) February 09, 2021 1:57 PM [facility] Progress note 02-09-2021 Note Date & Type Note Facility 02-09-2021 Note HNO ID: [id number] Author: Faith Argueta APRN.[facility] Service: ? Author Type: Nurse Practitioner Type: Progress Notes Filed: 02/09/2021 1:43 PM Note Text: CC: Patient presents with: Dizziness: disoriented x 6 months HPI Vanita Aly is a 85 year old female who presents today for above. PCP is Dr. Lynne, patient would like to transfer care to [facility] She reports dizziness that started around Fall 2019. Has never had this before. Dizziness is intermittent, occurring daily and becoming more frequent. mostly occurring with ambulation. Resolves with rest. Described as feeling off balance. Has been walking with a cane because she is afraid she will fall. Denies injury, fall, URI, current infections, ear problem, heart problem, new medications and recent hospital stay. Associated symptoms include feeling disoriented/foggy. Daughter reports she is more forgetful since dizziness started. Neurological symptoms: numbness/tingling of hands and feet, present for years. Has also had tinnitus for years. Denies hearing loss, ear fullness or pressure Denies alcohol or drug use. Admits to not drinking enough water. Drinks about 10 or more servings of coffee daily. She is not on any medications including OTC. Denies any significant medical history. Daughter also reports concerns of 15-20 lbs weight loss over one less than one year. Patient states appetite is normal and eating 3 meals a day. REVIEW OF SYSTEMS General: no fevers, no chills, no night sweats and no change in energy Respiratory: no cough, no wheezing, no shortness of breath, no hemoptysis Cardiovascular: chronic ankle edema, no worse than usual. no chest pain, no chest pressure, no palpitations, and no decrease in exercise tolerance GI: Negative for abdominal discomfort, blood in stools or black stools, change in bowel habit, heart burn, nausea, vomiting : No difficulty urinating, nocturia > 1 time per night or hematuria Psych: Negative for sleep disturbance, mood disorder and recent psychosocial stressors Neurologic: no headaches, no syncope, no feeling faint, no seizures, no muscle weakness, no involuntary movements, no tremor, no visual disturbances PAST MEDICAL HISTORY Diagnosis Date - Chronic rhinitis PAST SURGICAL HISTORY Procedure Laterality Date - COLONOSCOP W/ OR W/O BRSH SPEC 05/27/2009 normal - PARTIAL HIP REPLACEMENT 08/22/2003 - PAST SURGICAL HISTORY OF 2017 tendon repair in bilateral feet ALLERGIES Morphine MEDICATIONS Ascorbic Acid (VITAMIN C) 1,000 mg tablet Take 1 tablet by mouth once daily. Cholecalciferol, Vitamin D3, 25 mcg (1,000 unit) cap Take 1 capsule by mouth once daily. FAMILY HISTORY Problem Relation Age of Onset - Cancer Father bone cancer Social History Tobacco Use - Smoking status: Never Smoker - Smokeless tobacco: Never Used Vaping Use - Vaping Use: Never used Substance Use Topics - Alcohol use: No - Drug use: No PHYSICAL EXAM BP 114/58 (BP Site: Left Arm, BP Position: Sitting, BP Cuff Size: Regular Adult) Pulse 97 Resp 16 Wt 50.8 kg (112 lb) SpO2 98% General Appearance: well appearing, in no acute distress, alert, thin Pysch: mood and affect broad and appropriate Skin: Skin color, texture, turgor normal for age; Eyes: PERRLA, EOM's intact, conjunctiva pink and moist, no icterus, sclera white, non-injected Neck: Thyroid normal size and symmetric without palpable nodules, Neck supple, No adenopathy Lymph nodes: No supraclavicular lymphadenopathy Lungs: Lungs clear to auscultation. No wheezing, rhonchi, rales. Heart: RRR without murmur, gallop, or rubs. No ectopy Abdomen: soft, nondistended, nontender, no hepatosplenomegaly or masses Ext: 1+ pitting edema bilateral ankles, good distal pulses Neurological: speech normal, mental status intact, cranial nerves 2-12 intact, Romberg negative, muscle tone normal, muscle strength 4/5 bilaterally, rapid alternating movements normal, finger to nose normal, reflexes normal and symmetric. Ambulating with cane, gait slow but steady ASSESSMENT/PLAN: 1. Dizziness - ICD9: 780.4, ICD10: R42 (primary diagnosis) Differentials include advanced age, stroke, metabolic Work-up with: - CBC + DIFF - COMP METABOLIC PANEL - TSH BLD - URINALYSIS, WITH MICROSCOPIC Follow-up pending results of work-up 2. Balance problem - ICD9: 781.99, ICD10: R26.89 See plan above. If work-up normal consider MRI and possible referral to PT if normal MRI 3. Unintentional weight loss - ICD9: 783.21, ICD10: R63.4 15-20 lb weight loss in less than one year. Patient is up to date on age appropriate screenings Work-up with: - CBC + DIFF - COMP METABOLIC PANEL - TSH BLD - SED RATE WESTERGREN - C-REACTIVE PROTEIN (CRP) - URINALYSIS, WITH MICROSCOPIC - FECAL OCCULT BLOOD TEST - XR CHEST 2V FRONTAL/LAT Prescription instructions reviewed with patient as applicable. Potential red flag symptoms discussed wit (more content not included)... [facility] Summary Purpose Family History No Family History Records Found Advance Directives No Advanced Directives Records Found Additional Source Comments INFORMATION SOURCE (unrecogn ized section and content) FOR RECORDS PERTAINING TO PATIENTS WHO ARE OR HAVE BEEN ENROLLED IN A CHEMICAL DEPENDENCY/SUBSTANCEABUSE PROGRAM, SOME INFORMATION MAY BE OMITTED. This clinical summary was aggregated from multiple sources. Caution should be exercised in using it in the provision of clinical care. This summary normalizes information from multiple sources, and as a consequence, information in this document may materially change the coding, format and clinical context of patient data. In addition, data may be omitted in some cases. CLINICAL DECISIONS SHOULD BE BASED ON THE PRIMARY CLINICAL RECORDS. [facility]. provides no warranty or guarantee of the accuracy or completeness of information in this document.
[2023-07-30 21:20] LABS: BNP,B-Type NATRIURETIC PEPTIDE 85.8 pg/mL (0-100)
== END ==
LOC: OLS.SW 16:40
PROVIDERS: PCP Family Medicine Geriatric Medicine; Visit Provider Internal Medicine
DX: R06.02 Shortness of breath (principal)
CPT/HCPCS: 83880